=== PATIENT | male | born 1960 | race Caucasian/White ===

== ENCOUNTER 2017-03-18 14:52 | Emergency (ER) | payer BC, OTHER ==
[~2017-03-18] VITALS: Ht 172.7 cm; Wt 92.9 kg
[2017-03-18 14:56] VITALS: Ht 172.7 cm; Wt 92.9 kg
[2017-03-18] MEDS ORDERED: KETOROLAC TROMETHAMINE 30 MG/ML VIAL IV STA (15:14)
[2017-03-18] MEDS ORDERED: SODIUM CHLORIDE 0.9% 1000ML 1,000 ML IV STA (15:14)
--- NOTE | 2017-03-18 15:35 | EMERGENCY ROOM VISIT NOTE ---
History First contact with patient: 14:57 Chief Complaint: FLANK PAIN Stated Complaint: PAIN IN RIGHT SIDE History of Present Illness The patient is a 56 year old male who presents to the Emergency Room with complaints of right flank pain which began yesterday morning. The patient reports that he woke up yesterday morning with pain in the right side of his back. He states that the pain worsened last night and it became painful to lie on his right side. He states that he has increased pain with deep breath and movement. He states the symptoms are slightly better today. He denies any associated abdominal pain, urinary symptoms, chest pain or shortness of breath. The patient does report a history of kidney stones but is unsure if this pain is similar. He does report that he feels like his kidney stone caused him much more severe pain than this. He rates his current discomfort a 6/10 and has not tried any medication at home for the pain. The patient has a history of hypertension but is otherwise healthy. 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 He does smoke one pack of cigarettes daily and reports that he drove from [place] 2 weeks ago. He denies any history or family history of blood clots. He denies any recent leg pain or swelling. He does report a history of disc disease at L4 to L5. Review of Systems A complete 10 point review of systems was reviewed with the patient with pertinent positives and negatives as per history of present illness. All else were negative. Past Medical/Surgical History Medical Problems: (1) History of kidney stones (2) Hypertension Social History Smoking Status: Current Every Day Smoker Current/Historical Medications Scheduled Amlodipine (Norvasc), 5 MG PO QPM Chlorthalidone (Chlorthalidone), 50 MG PO QPM Clonidine Hcl (Catapres), 0.3 MG PO BID Lisinopril (Prinivil), 10 MG PO QPM Scheduled PRN Hydrocodone/Acetaminophen 5MG/325MG (Phillips 5MG/325MG), 1-2 TABLET PO Q4H PRN for Pain Allergies Coded Allergies: No Known Allergies (Unverified , 03/18/17) Physical Exam Vital Signs Date Time Temp Pulse Resp B/P (MAP) Pulse Ox O2 Delivery O2 Flow Rate FiO2 03/18/17 18:06 37.0 52 18 174/95 97 03/18/17 14:56 37.0 53 18 163/79 97 Room Air Physical Exam VITALS: Vitals are noted on the nurse's note and reviewed by myself. Vital signs stable. GENERAL: This is a 56-year-old male, in no acute distress, nondiaphoretic, well- developed well-nourished. SKIN: Capillary reflex less than 2 seconds. HEENT: Normocephalic. PERRLA. EOMI. Nares patent. Mucous membranes moist. Neck is supple without nuchal rigidity. HEART: Regular rate and rhythm without murmurs gallops or rubs. LUNGS: Clear to auscultation bilaterally without wheezes, rales or rhonchi. No retractions or accessory muscle use. ABDOMEN: Soft, obese. There is a moderate-sized umbilical hernia. Positive bowel sounds x 4. No tenderness to palpation. No CVA tenderness. MUSCULOSKELETAL: There is tenderness to palpation of the right mid back near the costovertebral angle. EXTREMITIES: No pedal edema. No calf tenderness. NEURO: Patient was alert and oriented to person place and time. Medical Decision & Procedures ER Provider Diagnostic Interpretation: CT SCAN OF THE ABDOMEN AND PELVIS WITHOUT CONTRAST FINDINGS: Lower chest: There is a trace right pleural effusion versus focal pleural thickening. There are bibasal atelectatic changes. Liver: The unenhanced liver is normal in size, contour, and attenuation. There is no intrahepatic biliary ductal dilatation. Gallbladder: Unremarkable. Spleen: Normal in size and attenuation. Pancreas: Unremarkable. Adrenal glands: Unremarkable. Kidneys: No renal, ureteral, or bladder calculi are visualized. There is a 12 mm upper pole left renal cyst Bowel: There are no transition zones indicate bowel obstruction. The appendix appears normal. There is pandiverticulosis. No acute peridiverticular inflammatory changes are visualized. Peritoneum: There is a fat-containing supraumbilical ventral hernia. There is a tiny fat-containing umbilical hernia. Vasculature: The abdominal aorta is normal in course and caliber. Adenopathy: Iliac lymph nodes are at the upper limits of normal in size. There is no pathologic adenopathy by size criteria. Pelvic viscera: The bladder, and pelvic viscera are unremarkable. Skeletal structures: There is a nonspecific 1 cm lytic focus within the right iliac bone. There are moderate degenerative changes the L4-5 level with a posterior disc osteophyte complex. There is secondary mild canal narrowing. IMPRESSION: 1. No renal, ureteral, or bladder calculi identified 2. No evidence of bowel obstruction. No evidence of free air 3. Diverticulosis. No evidence of acute diverticulitis 4. Normal appendix 5. Fat-containing supraumbilical ventral hernia and small fat-containing umbilical hernia 6. Other incidental findings as described above. Laboratory Results 03/18/17 15:30 Red Blood Count 4.52, Mean Corpuscular Volume 90.7, Mean Corpuscular Hemoglobin 32.3, Mean Corpuscular Hemoglobin Concent 35.6, Mean Platelet Volume 9.4, Neutrophils (%) (Auto) 68.8, Lymphocytes (%) (Auto) 22.8, Monocytes (%) (Auto) 7.0, Eosinophils (%) (Auto) 1.0, Basophils (%) (Auto) 0.2, Neutrophils # (Auto) 4.23, Lymphocytes # (Auto) 1.40, Monocytes # (Auto) 0.43, Eosinophils # (Auto) 0.06, Basophils # (Auto) 0.01 03/18/17 15:30 Test 03/18/17 15:30 03/18/17 15:34 03/18/17 17:20 White Blood Count 6.14 K/uL (4.8-10.8) Red Blood Count 4.52 M/uL (4.7-6.1) Hemoglobin 14.6 g/dL (14.0-18.0) Hematocrit 41.0 % (42-52) Mean Corpuscular Volume 90.7 fL (80-100) Mean Corpuscular Hemoglobin 32.3 pg (25-34) Mean Corpuscular Hemoglobin Concent 35.6 g/dl (32-36) Platelet Count 204 K/uL (130-400) Mean Platelet Volume 9.4 fL (7.4-10.4) Neutrophils (%) (Auto) 68.8 % Lymphocytes (%) (Auto) 22.8 % Monocytes (%) (Auto) 7.0 % Eosinophils (%) (Auto) 1.0 % Basophils (%) (Auto) 0.2 % Neutrophils # (Auto) 4.23 K/uL (1.4-6.5) Lymphocytes # (Auto) 1.40 K/uL (1.2-3.4) Monocytes # (Auto) 0.43 K/uL (0.11-0.59) Eosinophils # (Auto) 0.06 K/uL (0-0.5) Basophils # (Auto) 0.01 K/uL (0-0.2) RDW Standard Deviation 45.1 fL (36.4-46.3) RDW Coefficient of Variation 13.6 % (11.5-14.5) Immature Granulocyte % (Auto) 0.2 % Immature Granulocyte # (Auto) 0.01 K/uL (0.00-0.02) Anion Gap 7.0 mmol/L (3-11) Est Creatinine Clear Calc Drug Dose 94.2 ml/min Estimated GFR () 100.2 Estimated GFR (Non- 86.4 BUN/Creatinine Ratio 14.5 (10-20) Calcium Level 8.9 mg/dl (8.5-10.1) Total Bilirubin 0.5 mg/dl (0.2-1) Aspartate Amino Transf (AST/SGOT) U/L (15-37) Alanine Aminotransferase (ALT/SGPT) 31 U/L (12-78) Alkaline Phosphatase 74 U/L (45-117) Total Protein 7.7 gm/dl (6.4-8.2) Albumin 3.6 gm/dl (3.4-5.0) Globulin 4.1 gm/dl (2.5-4.0) Albumin/Globulin Ratio 0.9 (0.9-2) Lipase 175 U/L (73-393) Bedside D-Dimer 413 ng/mlFEU (0-450) Urine Color DK YELLOW Urine Appearance CLEAR (CLEAR) Urine pH 7.0 (4.5-7.5) Urine Specific Biggers 1.029 (1.000-1.030) Urine Protein TRACE (NEG) Urine Glucose (UA) NEG (NEG) Urine Ketones TRACE (NEG) Urine Occult Blood NEG (NEG) Urine Nitrite NEG (NEG) Urine Bilirubin NEG (NEG) Urine Urobilinogen NEG (NEG) Urine Leukocyte Esterase NEG (NEG) Urine WBC (Auto) 1-5 /hpf (0-5) Urine RBC (Auto) 0-4 /hpf (0-4) Urine Hyaline Casts (Auto) 1-5 /lpf (0-5) Urine Epithelial Cells (Auto) 10-20 /lpf (0-5) Urine Bacteria (Auto) NEG (NEG) Medications Administered Medications (Trade) Dose Ordered Sig/Kaiden Route Start Time Stop Time Status Last Admin Dose Admin Ketorolac Tromethamine (Toradol Inj) 30 mg NOW STAT IV 03/18/17 15:14 03/18/17 15:16 DC 03/18/17 15:32 30 MG Sodium Chloride 1,000 ml @ 999 mls/hr Q1H1M STAT IV 03/18/17 15:14 03/18/17 16:14 DC 03/18/17 15:32 999 MLS/HR ED Course The patient was evaluated as above. Labs were drawn and IV access was obtained. Patient was medicated with [address] of the abdomen and pelvis was performed and read by radiology as above. Patient was reevaluated and felt much better. Discharge instructions were reviewed with the patient. The patient verbalized understanding of my assessment and treatment plan and was discharged home in good condition. Medical Decision Differential diagnosis includes kidney stone, pyelonephritis, musculoskeletal pain, gastritis, biliary disease, pancreatitis, among others. The patient is a 56-year-old male who presents today complaining of right flank pain. Labs revealed no leukocytosis, anemia, or concerning electrolyte abnormality. Urinalysis was not suggestive of infection. D-dimer was negative. CT of the abdomen was unremarkable. No evidence of kidney stone. The patient was medicated for pain. His back pain is likely musculoskeletal. He was instructed to follow up with his PCP. Based on the patient's presentation and work up, I feel the patient is stable for outpatient treatment. The patient was educated to return to the emergency department for any worsening of their current condition or new/concerning symptoms. He will follow up with his PCP. Impression Primary Impression: Right flank pain Departure Information Dispostion Home / Self-Care Condition GOOD Prescriptions Hydrocodone/Acetaminophen 5MG/325MG (Phillips 5MG/325MG) Tab 1-2 TABLET PO Q4H Y for Pain, #15 TAB For Initial Treatment Prov: Davida Aldana PA-C 03/18/17 Referrals Gregorio Gonzalez M.D. (PCP) Patient Instructions My [facility] Additional Instructions You have been treated in the Emergency Department for Back Pain. You have been prescribed Phillips to be used for pain control. This is a narcotic medication. You cannot drive or consume alcohol while on this medicine. This medicine should only be used for pain that cannot be controlled with over-the- counter pain medicines. For pain control, you can use the following [id number] medicines (if >12 yo): - Regular strength (325mg/tab) Tylenol (acetaminophen) 2 tabs every 4-6 hours as needed. Do not exceed 12 tablets in a 24 hour period. Avoid taking more than 4 grams (4000 mg) of Tylenol per day. This includes any other sources of acetaminophen you may take on a regular basis. - Regular strength (200 mg/tab) Advil (ibuprofen) 1-2 tabs every 4-6 hours as needed. Do not exceed a dose of 3200 mg per day. If this is an acute injury, ice can be applied to the area of pain for the first 3 days to help decrease pain and inflammation. After the first 3 days, a heating pad can be used over the area for continued soothing relief. You should schedule a follow-up appointment in 2-3 days with your Primary Care Provider for further evaluation and treatment of your back pain. Return to the Emergency Department if your current symptoms worsen despite treatment course outlined above, or if you develop any of the following symptoms : intractable pain despite aforementioned treatment course, loss of control of your bowel or bladder, numbness or tingling in your groin, or development of a fever.
[2017-03-18 15:43] LABS: BASO % 0.2 %; BASO ABS # 0.01 K/uL (0-0.2); COMPLETE YES; IG% 0.2 %; LYMPH % 22.8 %; MEAN CELL VOLUME 90.7 fL (80-100); MEAN CORPUSCULAR HEMOGLOBIN 32.3 pg (25-34); MEAN CORPUSCULAR HGB CONC 35.6 g/dl (32-36); MEAN PLATELET VOLUME 9.4 fL (7.4-10.4); NEUT % 68.8 %; PLATELET COUNT 204 K/uL (130-400); RED BLOOD COUNT 4.52 M/uL (4.7-6.1); WHITE BLOOD COUNT 6.14 K/uL (4.8-10.8)
[2017-03-18] MEDS ORDERED: CHLO50TA PO (15:54)
[2017-03-18] MEDS ORDERED: LISI20TA3 PO (15:54)
[2017-03-18] MEDS ORDERED: AMLO-110 PO (15:54)
[2017-03-18] MEDS ORDERED: CLON0.3T PO (15:54)
[2017-03-18 16:36] LABS: ALB/GLOB RATIO 0.9 (0.9-2); ALKALINE PHOSPHATASE 74 U/L (45-117); ALT/SGPT 31 U/L (12-78); BLOOD UREA NITROGEN 14 mg/dl (7-18); BUN/CREATININE RATIO 14.5 (10-20); CALCIUM 8.9 mg/dl (8.5-10.1); CARBON DIOXIDE 33 mmol/L (21-32); CHLORIDE 102 mmol/L (98-107); CREATININE 0.98 mg/dl (0.60-1.40); GLUCOSE 91 mg/dl (70-99); SODIUM 142 mmol/L (136-145)
--- NOTE | 2017-03-18 16:38 | DIAGNOSTIC IMAGING REPORT ---
CT SCAN OF THE ABDOMEN AND PELVIS WITHOUT CONTRAST CLINICAL HISTORY: Right flank pain COMPARISON STUDY: No previous studies for comparison. TECHNIQUE: CT scan of the abdomen and pelvis was performed from the lung bases to the proximal femurs. Images are reviewed in the axial, sagittal, and coronal planes. IV contrast was not administered for this examination. CT DOSE: 1177.17 mGy.cm FINDINGS: Lower chest: There is a trace right pleural effusion versus focal pleural thickening. There are bibasal atelectatic changes. Liver: The unenhanced liver is normal in size, contour, and attenuation. There is no intrahepatic biliary ductal dilatation. Gallbladder: Unremarkable. Spleen: Normal in size and attenuation. Pancreas: Unremarkable. Adrenal glands: Unremarkable. Kidneys: No renal, ureteral, or bladder calculi are visualized. There is a 12 mm upper pole left renal cyst Bowel: There are no transition zones indicate bowel obstruction. The appendix appears normal. There is pandiverticulosis. No acute peridiverticular inflammatory changes are visualized. Peritoneum: There is a fat-containing supraumbilical ventral hernia. There is a tiny fat-containing umbilical hernia. Vasculature: The abdominal aorta is normal in course and caliber. Adenopathy: Iliac lymph nodes are at the upper limits of normal in size. There is no pathologic adenopathy by size criteria. Pelvic viscera: The bladder, and pelvic viscera are unremarkable. Skeletal structures: There is a nonspecific 1 cm lytic focus within the right iliac bone. There are moderate degenerative changes the L4-5 level with a posterior disc osteophyte complex. There is secondary mild canal narrowing. IMPRESSION: 1. No renal, ureteral, or bladder calculi identified 2. No evidence of bowel obstruction. No evidence of free air 3. Diverticulosis. No evidence of acute diverticulitis 4. Normal appendix 5. Fat-containing supraumbilical ventral hernia and small fat-containing umbilical hernia 6. Other incidental findings as described above. Electronically signed by: Skyler Mendenhall M.D. 03/18/2017 4:37 PM Dictated Date/Time: 03/18/2017 4:30 PM
[2017-03-18 17:36] LABS: URINE APPEARANCE CLEAR (CLEAR); URINE BILIRUBIN NEG (NEG); URINE COLOR DK YELLOW; URINE NITRITE NEG (NEG); URINE SPECIFIC GRAVITY 1.029 (1.000-1.030); UROBILINOGEN NEG (NEG); ZZUR CULT IF INDIC CLEAN CATCH NO
[2017-03-18] MEDS ORDERED: HYDR-5688 PO (17:41)
[2017-03-18 17:46] LABS: MANUAL MICROSCOPIC REQUIRED? NO; REVIEW REQ? NO
[2017-03-18 18:06] VITALS: BP 174/95; PULSE 52; TEMP 37; O2SAT 97
== END 2017-03-18 18:07 | disposition home or self-care (01) ==
LOC: C.EDB 14:53
DX: R10.9 Unspecified abdominal pain (principal); I10 Essential (primary) hypertension; F17.210 Nicotine dependence, cigarettes, uncomplicated; K42.9 Umbilical hernia without obstruction or gangrene; Z87.442 Personal history of urinary calculi

== ENCOUNTER 2017-12-01 15:39 | Inpatient (IN) | payer BC ==
[~2017-12-01] VITALS: Ht 172.7 cm; Wt 90.1 kg
[~2017-12-01 15:39] MED LIST: AMLO-110 PO; CHLO50TA PO; CLON0.3T PO; LISI20TA3 PO
[2017-12-01] MEDS ORDERED: NITROGLYCERIN 0.4 MG SL PER TAB CHARGE SL STA (16:06)
[2017-12-01] MEDS ORDERED: ASPIRIN 324 MG CHEW PO STA (16:06)
[2017-12-01 16:39] LABS: BASO % 0.2 %; BASO ABS # 0.02 K/uL (0-0.2); EOS % 0.6 %; EOS ABS # 0.06 K/uL (0-0.5); HEMATOCRIT 40.8 % (42-52); HEMOGLOBIN 14.7 g/dL (14.0-18.0); IG# 0.02 K/uL (0.00-0.02); LYMPH % 14.5 %; LYMPH ABS # 1.37 K/uL (1.2-3.4); MEAN CELL VOLUME 88.1 fL (80-100); MEAN CORPUSCULAR HEMOGLOBIN 31.7 pg (25-34); MEAN PLATELET VOLUME 9.6 fL (7.4-10.4); MONO % 7.5 %; MONO ABS # 0.71 K/uL (0.11-0.59); NEUT ABS # 7.24 K/uL (1.4-6.5); PLATELET COUNT 179 K/uL (130-400); RED CELL DISTRIBUTION WIDTH CV 13.5 % (11.5-14.5); RED CELL DISTRIBUTION WIDTH SD 43.3 fL (36.4-46.3); WHITE BLOOD COUNT 9.42 K/uL (4.8-10.8)
--- NOTE | 2017-12-01 16:41 | DIAGNOSTIC IMAGING REPORT ---
CHEST ONE VIEW PORTABLE HISTORY: 56 years-old Male cp acute atypical chest pain with high blood pressure COMPARISON: Chest radiographs 09/03/2009 TECHNIQUE: Portable AP view of the chest FINDINGS: Cardiac silhouette is mildly enlarged. No pneumothorax, pleural effusion, focal airspace consolidation or overt pulmonary edema. The bones of the chest appear grossly intact. IMPRESSION: Mild cardiomegaly without acute process. The above report was generated using voice recognition software. It may contain grammatical, syntax or spelling errors. Electronically signed by: Gabriel Linares M.D. 12/01/2017 4:40 PM Dictated Date/Time: 12/01/2017 4:39 PM
[2017-12-01 16:47] LABS: PTT PATIENT 28.2 SECONDS (21.0-31.0)
[2017-12-01] MEDS ORDERED: POTA10TA PO (16:47)
[2017-12-01 16:57] LABS: CALCIUM 9.1 mg/dl (8.5-10.1); CREATININE 0.99 mg/dl (0.60-1.40); POTASSIUM 2.9 mmol/L (3.5-5.1)
[2017-12-01] MEDS ORDERED: POTASSIUM CHLORIDE 10 MEQ TABCR PO STA (17:07)
--- NOTE | 2017-12-01 18:17 | EMERGENCY ROOM VISIT NOTE ---
History Report prepared by Biancaibwendy: Chris Goldman Under the Supervision of: Dr. Jean Claude Sal M.D. First contact with patient: 16:00 Chief Complaint: CHEST PAIN Stated Complaint: CHEST PAIN, HIGH BP- PHYSICIAN REFERRED History of Present Illness The patient is a 56 year old male who presents to the Emergency Room with complaints of constant bilateral chest pain beginning yesterday morning. He describes his pain as "pressure". He also complains of SOB. The patient's pain improved upon waking up today, but has worsened throughout the day today. He rates his current pain as a 6/10 in severity. His pain is worsened with walking. The patient notes that he had a fever of 99 degrees today. He states that he has had a non-productive cough as well. He smokes one pack of cigarettes a day. The patient has no history of similar symptoms. He has a history of hypertension and states that he has been taking his medications as normal. He denies nausea, diaphoresis, leg pain or swelling, or lightheadedness. The patient denies using Viagra recently, but states that he has been taking a testosterone supplement. Source of History: patient Onset: Yesterday morning Position: chest (bilateral) Symptom Intensity: 6/10 Quality: pressure Timing: constant Modifying Factors (Worsening): other (Walking) Associated Symptoms: + fevers (99 degrees), + cough (non-productive), + SOB , No diaphoresis, No nausea Note: The patient denies leg swelling or pain, or lightheadedness. Review of Systems See HPI for pertinent positives & negatives. A total of 10 systems reviewed and were otherwise negative. Past Medical & Surgical Medical Problems: (1) History of kidney stones (2) Hypertension Family History No pertinent family history stated. Social History Smoking Status: Current Every Day Smoker Occupation Status: employed Current/Historical Medications Scheduled Amlodipine (Norvasc), 5 MG PO QPM Clonidine Hcl (Catapres), 0.3 MG PO BID Lisinopril (Prinivil), 20 MG PO QPM Potassium Chloride (K-Tabs), 10 MEQ PO BID Allergies Coded Allergies: No Known Allergies (Unverified , 12/01/17) Physical Exam Vital Signs Date Time Temp Pulse Resp B/P (MAP) Pulse Ox O2 Delivery O2 Flow Rate FiO2 12/01/17 17:19 60 18 149/80 96 Room Air 12/01/17 16:37 96 Room Air 12/01/17 16:35 58 12/01/17 16:11 96 Room Air 12/01/17 15:47 37.1 63 18 199/98 97 Room Air Physical Exam Constitutional: Vital signs reviewed. Severely hypertensive. Eyes: Pupils are equal round reactive to light. Conjunctiva are noninjected. ENT: Pharynx is clear without erythema or exudate. Mucous membranes are moist. Neck supple without meningeal signs. Respiratory: Clear to auscultation bilaterally. Breath sounds are equal bilaterally. Cardiovascular: Regular rate and rhythm. No rubs or gallops. GI: Soft, nondistended and nontender. Bowel sounds are present. Musculoskeletal: No peripheral edema. No lower extremity tenderness. Integumentary: No cyanosis. Neurological: The patient is awake and alert. No focal deficits. Psychiatric: Normal affect. Medical Decision & Procedures ER Provider Diagnostic Interpretation: Radiology results as stated below per my review and the radiologist's interpretation: CHEST ONE VIEW PORTABLE FINDINGS: Cardiac silhouette is mildly enlarged. No pneumothorax, pleural effusion, focal airspace consolidation or overt pulmonary edema. The bones of the chest appear grossly intact. IMPRESSION: Mild cardiomegaly without acute process. The above report was generated using voice recognition software. It may contain grammatical, syntax or spelling errors. Electronically signed by: Gabriel Linares M.D. 12/01/2017 4:40 PM Laboratory Results 12/01/17 16:30 Red Blood Count 4.63, Mean Corpuscular Volume 88.1, Mean Corpuscular Hemoglobin 31.7, Mean Corpuscular Hemoglobin Concent 36.0, Mean Platelet Volume 9.6, Neutrophils (%) (Auto) 77.0, Lymphocytes (%) (Auto) 14.5, Monocytes (%) (Auto) 7.5, Eosinophils (%) (Auto) 0.6, Basophils (%) (Auto) 0.2, Neutrophils # (Auto) 7.24, Lymphocytes # (Auto) 1.37, Monocytes # (Auto) 0.71, Eosinophils # (Auto) 0.06, Basophils # (Auto) 0.02 12/01/17 16:30 Test 12/01/17 16:30 12/01/17 16:37 White Blood Count 9.42 K/uL (4.8-10.8) Red Blood Count 4.63 M/uL (4.7-6.1) Hemoglobin 14.7 g/dL (14.0-18.0) Hematocrit 40.8 % (42-52) Mean Corpuscular Volume 88.1 fL (80-100) Mean Corpuscular Hemoglobin 31.7 pg (25-34) Mean Corpuscular Hemoglobin Concent 36.0 g/dl (32-36) Platelet Count 179 K/uL (130-400) Mean Platelet Volume 9.6 fL (7.4-10.4) Neutrophils (%) (Auto) 77.0 % Lymphocytes (%) (Auto) 14.5 % Monocytes (%) (Auto) 7.5 % Eosinophils (%) (Auto) 0.6 % Basophils (%) (Auto) 0.2 % Neutrophils # (Auto) 7.24 K/uL (1.4-6.5) Lymphocytes # (Auto) 1.37 K/uL (1.2-3.4) Monocytes # (Auto) 0.71 K/uL (0.11-0.59) Eosinophils # (Auto) 0.06 K/uL (0-0.5) Basophils # (Auto) 0.02 K/uL (0-0.2) RDW Standard Deviation 43.3 fL (36.4-46.3) RDW Coefficient of Variation 13.5 % (11.5-14.5) Immature Granulocyte % (Auto) 0.2 % Immature Granulocyte # (Auto) 0.02 K/uL (0.00-0.02) Prothrombin Time 10.4 SECONDS (9.0-12.0) Prothromb Time International Ratio 1.0 (0.9-1.1) Activated Partial Thromboplast Time 28.2 SECONDS (21.0-31.0) Partial Thromboplastin Ratio 1.1 Anion Gap 8.0 mmol/L (3-11) Est Creatinine Clear Calc Drug Dose 92.4 ml/min Estimated GFR () 99.0 Estimated GFR (Non- 85.4 BUN/Creatinine Ratio 13.4 (10-20) Calcium Level 9.1 mg/dl (8.5-10.1) Bedside Troponin I < 0.030 ng/ml (0-0.045) Laboratory results as reviewed by me. Medications Administered Medications (Trade) Dose Ordered Sig/Kaiden Route Start Time Stop Time Status Last Admin Dose Admin Aspirin (Aspirin Chew) 324 mg NOW STAT PO 12/01/17 16:06 12/01/17 16:08 DC 12/01/17 16:06 324 MG Nitroglycerin (Nitrostat Tab) 0.4 mg Q5M STAT SL 12/01/17 16:06 12/01/17 16:08 DC 12/01/17 16:06 0.4 MG Potassium Chloride (Klor-Con M10) 40 meq NOW STAT PO 12/01/17 17:07 12/01/17 17:09 DC 12/01/17 17:23 40 MEQ ECG Indication: chest pain Rate (beats per minute): 62 Rhythm: normal sinus Findings: no ectopy, other (LVH. No ST elevations. Baseline artifact limiting interpretation. ) Change: Patient's electrocardiogram per my interpretation. Repeat ECG shows a sinus bradycardia with a rate of [address] elevations or ectopy seen. LVH noted. ED Course 1601: The patient was evaluated in room A2. A complete history and physical exam was performed. 1606: Ordered Nitrostat Tab 0.4 mg SL, Aspirin Chew 324 mg PO. 1625: I checked on the patient. He has received his nitroglycerin, but has not seen any relief at this time. 1642: I reassessed the patient. His pain has improved, and he is breathing more comfortably after receiving the nitroglycerin. 1705: Upon reevaluation, the patient is feeling better. His chest pain is much better. I discussed tonight's findings with him. He verbalized agreement of the treatment plan. The patient will be evaluated for further evaluation. 1707: Ordered Klor-Con M10 40 meq PO. 1724: I reexamined the patient. He is no longer having pain or shortness of breath after receiving his third nitroglycerin. His blood pressure is 149 systolic. Medical Decision This is a 56-year-old male who presents with chest pain. Differential diagnosis includes unstable angina, IL, pneumonia, pleurisy, pneumothorax, GERD. I did perform a limited focused review of portions of the patient's old chart on the electronic medical record. The patient has had no recent pertinent visits to this hospital. I did evaluate the patient as noted above. The patient is presenting with chest pressure starting yesterday which is worse with exertion. He has some associated shortness of breath with it. He does not have any known risk factors for pulmonary embolism. IV access was established. The patient was placed on a continuous biomedical photographer. I did treat him with aspirin and 3 sublingual nitroglycerin. I did order and personally review the patient's 12- lead EKG and chest x-ray as described above. His 12-lead EKG is nonspecific. I did repeat a 12-lead EKG and per my interpretation this does not show any acute ST elevations. He does have some hypertrophy. I did order and review the patient's blood work as noted in the electronic medical record. Troponin is negative. His potassium is low. He was given oral supplementation. He does state he has a problem with low potassium. I did reassess the patient multiple times. His chest pain is resolved and his blood pressure is significantly improved. I did recommend hospitalization for further evaluation and cardiac stress testing. I did discuss the case with the hospitalist and medical case worker. Medication Reconcilliation Current Medication List: was personally reviewed by me Blood Pressure Screening Patient's blood pressure: Elevated blood pressure Blood pressure disposition: Referred to PCP Consults Time Called: 1704 Consulting Physician: Dr. Li - [facility] Hospitalist Returned Call: [address] Li of [facility]. We discussed the patient and his results. The patient will be further evaluated by [facility]. Impression Primary Impression: Exertional chest pain Additional Impressions: Hypokalemia Hypertensive urgency Scribe Attestation The scribe's documentation has been prepared under my direct and personally reviewed by me in its entirety. I confirm that the note above accurately reflects all work, treatment, procedures, and medical decision making performed by me. Departure Information Dispostion Being Evaluated By Hospitalist Referrals Gregorio Gonzalez M.D. (PCP) Patient Instructions My [facility] Problem Qualifiers
[2017-12-01] MEDS ORDERED: ONDANSETRON INJ 2 MG/ML 2 ML VIAL IV PRN (20:00)
[2017-12-01] MEDS ORDERED: NITROGLYCERIN 0.4 MG SL PER TAB CHARGE SL ONE (20:00)
[2017-12-01] MEDS ORDERED: MAGNESIUM HYDROXIDE SUSP 30 ML UDC PO PRN (20:00)
[2017-12-01] MEDS ORDERED: POLYETHYLENE (MIRALAX) 17 GM PACK PO PRN (20:00)
[2017-12-01] MEDS ORDERED: ALUMINUM/MAGNESIUM/SIMETH (MAALOX MAX) 30 ML UDC PO PRN (20:00)
--- NOTE | 2017-12-01 20:35 | History and Physical ---
History & Physical Date & Time of Service: Dec 01, 2017 at 20:13 Chief Complaint: Chest Pain, High Bp- Physician Referred Primary Care Physician: Gregorio Gonzalez M.D. History of Present Illness Source: patient, hospital records This is a 56 y/o male with a history of HTN and hypokalemia who presented to the ED on 12/01 with chest pain. The patient first developed pressure across his chest yesterday morning. He rates it a 6/10 at its worst. The pain is accompanied by shortness of breath. He states that the pain and SOB are exacerbated by exertion. The pain did start to radiate through to his back. He denies any other associated symptoms. The pain started to get better this morning, but at work began to get worse again. In the ED, the patient states his pain was relieved by nitro, which he received several hours prior to my exam , but is now returning. The patient is a smoker and has a history of HTN but denies any history of HLD or previous cardiac events. He denies any family history of [place]. The patient checks his blood pressure on occasion at home. He had actually checked it this afternoon [employer] and it was around 156/72 at that time. He has been taking his blood pressure medications as prescribed. The patient notes tingling in his hands which has been present for months since he was diagnosed with hypokalemia. This is stable and no worse than usual. The patient denies fevers, chills, sweats, palpitations, claudication, cough, wheezing, nausea, vomiting, abdominal pain, dysuria, hematuria, urinary retention, paralysis, weakness, acute numbness and tingling. 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 No cough, No wheezing Cardiovascular: +Chest pain, worse on exertion. No claudication, No palpitations Abdomen: No pain, No nausea, No vomiting Musculoskeletal: No joint pain, No muscle pain, No swelling Genitourinary - Male: No dysuria, No urinary retention, No hematuria Neurologic: No paralysis, No weakness, No numbness/tingling Integumentary: No rash, No itch, No color change Physical Exam Vital Signs Date Time Temp Pulse Resp B/P (MAP) Pulse Ox O2 Delivery O2 Flow Rate FiO2 12/01/17 18:43 57 18 157/92 95 Room Air 12/01/17 17:19 60 18 149/80 96 Room Air 12/01/17 16:37 96 Room Air 12/01/17 16:35 58 12/01/17 16:11 96 Room Air 12/01/17 15:47 37.1 63 18 199/98 97 Room Air General appearance: +Obese. Well-developed, well-nourished, no apparent distress Head: Normocephalic, atraumatic Eyes: Normal inspection, PERRL, EOMI ENT: Normal ENT inspection, hearing grossly normal, pharynx normal Neck: Supple, no JVD, trachea midline Respiratory/Chest: Lungs clear to auscultation, normal breath sounds, no respiratory distress Cardiovascular: Regular rate & rhythm, no gallop, no murmur Abdomen/GI: +Ventral hernia above umbilicus, mildly TTP. Normal bowel sounds, soft Extremities/Musculoskeletal: Normal inspection, no calf tenderness, no pedal edema Neurological/Psych: Alert, normal mood/affect, oriented x 3 Skin: Normal color, warm/dry, no rash Diagnostics Laboratory Results Results Past 24 Hours Test 12/01/17 16:30 12/01/17 16:37 Range/Units White Blood Count 9.42 4.8-10.8 K/uL Red Blood Count 4.63 4.7-6.1 M/uL Hemoglobin 14.7 14.0-18.0 g/dL Hematocrit 40.8 42-52 % Mean Corpuscular Volume 88.1 80-100 fL Mean Corpuscular Hemoglobin 31.7 25-34 pg Mean Corpuscular Hemoglobin Concent 36.0 32-36 g/dl Platelet Count 179 130-400 K/uL Mean Platelet Volume 9.6 7.4-10.4 fL Neutrophils (%) (Auto) 77.0 % Lymphocytes (%) (Auto) 14.5 % Monocytes (%) (Auto) 7.5 % Eosinophils (%) (Auto) 0.6 % Basophils (%) (Auto) 0.2 % Neutrophils # (Auto) 7.24 1.4-6.5 K/uL Lymphocytes # (Auto) 1.37 1.2-3.4 K/uL Monocytes # (Auto) 0.71 0.11-0.59 K/uL Eosinophils # (Auto) 0.06 0-0.5 K/uL Basophils # (Auto) 0.02 0-0.2 K/uL RDW Standard Deviation 43.3 36.4-46.3 fL RDW Coefficient of Variation 13.5 11.5-14.5 % Immature Granulocyte % (Auto) 0.2 % Immature Granulocyte # (Auto) 0.02 0.00-0.02 K/uL Prothrombin Time 10.4 9.0-12.0 SECONDS Prothromb Time International Ratio 1.0 0.9-1.1 Activated Partial Thromboplast Time 28.2 21.0-31.0 SECONDS Partial Thromboplastin Ratio 1.1 Sodium Level 136 136-145 mmol/L Potassium Level 2.9 3.5-5.1 mmol/L Chloride Level 101 98-107 mmol/L Carbon Dioxide Level 27 21-32 mmol/L Anion Gap 8.0 3-11 mmol/L Blood Urea Nitrogen 13 7-18 mg/dl Creatinine 0.99 0.60-1.40 mg/dl Est Creatinine Clear Calc Drug Dose 92.4 ml/min Estimated GFR () 99.0 Estimated GFR (Non- 85.4 BUN/Creatinine Ratio 13.4 10-20 Random Glucose 98 70-99 mg/dl Calcium Level 9.1 8.5-10.1 mg/dl Bedside Troponin I < 0.030 0-0.045 ng/ml Diagnostic Radiology Reviewed the following studies and agree with interpretation as follows: CHEST ONE VIEW PORTABLE HISTORY: 56 years-old Male cp acute atypical chest pain with high blood pressure COMPARISON: Chest radiographs 09/03/2009 TECHNIQUE: Portable AP view of the chest FINDINGS: Cardiac silhouette is mildly enlarged. No pneumothorax, pleural effusion, focal airspace consolidation or overt pulmonary edema. The bones of the chest appear grossly intact. IMPRESSION: Mild cardiomegaly without acute process. EKG Reviewed EKG and agree with interpretation as follows: 62 bpm, NSR, LVH Impression Assessment and Plan 56 y/o male with a history of HTN and hypokalemia who presented to the ED on with chest pain. BP elevated on arrival at 199/98. Pt did not receive any antihypertensives in ED, just 1 SL nitro. BP did come down to 149/80. Vital signs otherwise stable. CXR no acute disease. EKG no ischemic changes. Troponin negative. Potassium low at 2.9, given KCl 40 mEq PO in ED. Chest pain, ACS r/o -Admit to telemetry for observation -Trend cardiac enzymes q8h x 3. First trop negative -Stress echo in am if negative -NPO after midnight except meds -ASA 81 mg PO qam -Check fasting lipid profile and hgbA1c. Denies any h/o HLD or DM -EKG q am and prn chest pain -Nitro SL prn chest pain -D-dimer elevated, will check chest CTA to r/o PE HTN--now stable. Most of his medications are at night and he has not yet taken for today -Continue Norvasc 5 mg PO hs, Catapres 0.3 mg PO BID, and lisinopril 20 mg PO hs Hypokalemia -Potassium 2.9 on admission. No EKG changes. Given 40 mEq in ED -Continue KCl 10 mEq PO BID -Check magnesium, replace prn -Consider ruling out hyperaldosteronism as outpatient given hypokalemia in setting of HTN DVT prophylaxis -Enoxaparin 40 mg SC q24h -WEN Banerjee Code Status -Level I, FULL RESUSCITATION STATUS I personally interviewed and examined the patient. I agree with history of present illness and physical exam mentioned above, I also performed my own history taking and examination. Past medical history and review of system has been obtained by myself I reviewed all pertinent labs and studies Reviewed current medications I discussed and formulated of the assessment and plan mentioned above by Miss Maria. Please refer to the Summary mentioned below. 56/m presented w chest pain (pleuritic), hypokalemia and HTN urgency. D dimer was mildly elevated and CTA was ordered. potassium replaced cardiology consult placed General Appearance: not in acute distress Eyes: normal Sclerae, extraocular muscle intact ENT: hearing grossly normal Neck: supple Respiratory/Chest: normal air entry bilateral ,no respiratory distress, no accessory muscle use Cardiovascular: regular rate, rhythm, no murmur Abdomen: non tender, soft, no masses Extremities: no edema Neurologic/Psychiatric: Awake alert oriented times place and person moves all extremities sensation intact cranial nerves II-12 appear to be intact Skin: normal color, warm/dry, no rash Andra Hsu MD, [facility] Level of Care Telemetry Resuscitation Status FULL RESUSCITATION VTE Prophylaxis VTE Risk Assessment Done? Y/N: Yes Risk Level: Moderate Given or contraindicated: Enoxaparin (Lovenox)SQ, T.E.D. Stockings, SCD's
[2017-12-01] MEDS ORDERED: IV FLUIDS COMPLETED PRN (20:45)
[2017-12-01] MEDS ORDERED: POTASSIUM CHLORIDE 10 MEQ TABCR PO SCH (21:00)
[2017-12-01] MEDS ORDERED: OPTIRAY 320 IV PRN (21:00)
--- NOTE | 2017-12-01 21:11 | DIAGNOSTIC IMAGING REPORT ---
(CHEST FOR PE) ANGIO WITH CLINICAL HISTORY: 56 years-old Male presenting with ^atypical chest pain , r/o pe. TECHNIQUE: Multidetector CT angiography of the chest was performed after administration of intravenous contrast. 3-D volumetric and/or maximum intensity projection (MIP) images were subsequently reconstructed for review. IV contrast: 104 mL of Optiray 320. A dose lowering technique was used consistent with the principles of ALARA (as low as reasonably achievable). COMPARISON: Chest x-ray performed earlier the same day. CT DOSE (mGy.cm): The estimated cumulative dose is 582.05 mGy.cm. FINDINGS: [employer] topogram: Cardiomegaly. Pulmonary vasculature: The study is adequate for assessment of the pulmonary vascular tree. No filling defect within the pulmonary arteries to suggest embolus. Main pulmonary artery is not enlarged. No flattening of the interventricular septum. No intracardiac filling defect. No reflux of contrast into the hepatic veins. Remaining chest: On soft tissue windows, normal thyroid and thoracic inlet. No axillary, supraclavicular, hilar, or mediastinal lymphadenopathy. Normal aorta. Multichamber enlargement of the heart. Coronary artery calcification. No pericardial or pleural effusion. Upper abdomen normal. On lung windows, minimal dependent changes likely atelectasis. No other focal nodule or infiltrate. Layering debris in the right mainstem bronchus. Bronchial wall thickening in the right lower lobe. On bone windows, degenerative changes of the spine. IMPRESSION: 1. No evidence of pulmonary embolus. 2. Layering debris in the right mainstem bronchus with bronchial wall thickening in the right lower lobe suggests aspiration. No evidence of pneumonitis at this time. Electronically signed by: Fahad Luciano M.D. 12/01/2017 9:10 PM Dictated Date/Time: 12/01/2017 9:03 PM
[2017-12-01] MEDS ORDERED: SODIUM CHLORIDE 0.9% 1000ML 1,000 ML IV SCH (21:30)
[2017-12-01] MEDS: ACETAMINOPHEN 325 MG TAB PO PRN (21:59)
[2017-12-01] MEDS: AMLODIPINE BESYLATE 5 MG TAB PO SCH (22:00)
[2017-12-01] MEDS: LISINOPRIL 20 MG TAB PO SCH (22:00)
[2017-12-01] MEDS: CLONIDINE HCL 0.3 MG TAB PO SCH (22:01)
[2017-12-01] MEDS: ENOXAPARIN 40 MG/0.4 ML SYR SC SCH (22:01)
[2017-12-01 22:25] VITALS: BP 195/105; PULSE 68; TEMP 37.1; O2SAT 97; Ht 172.7 cm; Wt 90.1 kg
[2017-12-01 22:44] VITALS: BP 144/74; PULSE 60
[2017-12-01] MEDS ORDERED: NURSING VERBAL MED ORDER ONE (23:00)
[2017-12-02] VITALS (13 sets, daily range): BP systolic 119–192; BP diastolic 70–100; PULSE 51–71; TEMP 36.4–37.5; O2SAT 94–99
[2017-12-02 00:50] LABS: CKMB < 0.5 ng/ml (0.5-3.6)
[2017-12-02] MEDS: NITROGLYCERIN 0.4 MG SL PER TAB CHARGE SL PRN ×2 (04:02→14:22)
[2017-12-02] MEDS: ACETAMINOPHEN 325 MG TAB PO PRN (05:14)
[2017-12-02 08:51] LABS: HEMATOCRIT 42.1 % (42-52); HEMOGLOBIN 15.1 g/dL (14.0-18.0); MEAN CELL VOLUME 89.4 fL (80-100); MEAN CORPUSCULAR HEMOGLOBIN 32.1 pg (25-34); MEAN CORPUSCULAR HGB CONC 35.9 g/dl (32-36); MEAN PLATELET VOLUME 9.8 fL (7.4-10.4); PLATELET COUNT 171 K/uL (130-400); RED CELL DISTRIBUTION WIDTH CV 13.4 % (11.5-14.5); RED CELL DISTRIBUTION WIDTH SD 44.1 fL (36.4-46.3); WHITE BLOOD COUNT 10.02 K/uL (4.8-10.8)
[2017-12-02 09:20] LABS: CALCIUM 9.2 mg/dl (8.5-10.1); CREATININE 0.95 mg/dl (0.60-1.40); POTASSIUM 3.1 mmol/L (3.5-5.1)
[2017-12-02 09:26] LABS: CKMB < 0.5 ng/ml (0.5-3.6)
[2017-12-02] MEDS: CLONIDINE HCL 0.3 MG TAB PO SCH ×2 (09:37→19:54)
[2017-12-02] MEDS: ASPIRIN 81 MG ECTAB PO SCH (09:37)
[2017-12-02 09:41] LABS: HEMOGLOBIN A1C 5.7 % (4.5-5.6)
--- NOTE | 2017-12-02 09:51 | Cardiology Consultation ---
Cardiology Consultation Date of Consultation: Dec 02, 2017. Requesting Physician: Dr. Hsu Reason for Consultation: Chest pain Pt evaluation today including: conversation w/ patient, physical exam, lab review, review of studies, review of inpatient medication list, conversation w/ attending History of Present Illness This is a 56-year-old gentleman with a history of tobacco abuse, hypertension but no known cardiac disease. He presented to the emergency room on 12/01/2017 with chest discomfort, it had started 11/30/2017, it was better in the morning of December 01 but then when he went to work (he works in [employer]) the discomfort got worse and he came into the emergency room. It was also associated with shortness of breath and exacerbated by exertion, although he does get it at rest as well including during the night last night. In the emergency room his chest discomfort was transiently relieved with sublingual nitroglycerin. He describes the symptoms as worsening with exertion, being a quite severe prepectoral discomfort with radiation to his back. There is no particular position that makes it better or worse. It may be exacerbated by taking a deep breath although that is not very consistent. He has not had this discomfort before. So far evaluation includes negative cardiac enzymes 3, and electrocardiogram which does not show acute changes and a CT scan which showed some debris in his bronchus but no pulmonary embolism. Past Medical/Surgical History (1) Hypertension Family History Coronary artery disease Hyperlipidemia Hypertension Leukemia Social History Smoking Status: Current Every Day Smoker History of Alcohol Use: Yes (3-5 Beers a day ) Review of Systems Constitutional: No fever, No weight loss, No weakness Respiratory: No cough, No wheezing, No shortness of breath, No dyspnea on exertion Cardiac: + see HPI, + chest pain, No orthopnea, No PND, No edema, No palpitations Abdomen: No pain, No nausea, No vomiting, No diarrhea, No GI bleeding Male : No urinary frequency, No nocturia more than once/night, No slowing stream, No sexual dysfunction Neurologic: No paralysis, No weakness, No numbness/tingling, No balance problems Heme: No abnormal bleeding/bruising, No clotting problems Endo: No fatigue Skin: No problem reported All Other Systems: Reviewed and Negative Allergies Coded Allergies: No Known Allergies (Unverified , 12/01/17) Medications Current Inpatient Medications Medications (Trade) Dose Ordered Sig/Kaiden Route Start Time Stop Time Status Last Admin Dose Admin Enoxaparin Sodium (Lovenox Inj) 40 mg DAILY@2000 SC 12/01/17 22:00 12/31/17 21:59 12/01/17 22:01 40 MG Acetaminophen (Tylenol Tab) 650 mg Q4H PRN PO 12/01/17 20:00 12/31/17 19:59 12/02/17 05:14 650 MG Al Hydrox/Mg Hydrox/Simethicone (Maalox Max Susp) 15 ml Q4H PRN PO 12/01/17 20:00 12/31/17 19:59 Magnesium Hydroxide (Milk Of Magnesia Susp) 30 ml Q12H PRN PO 12/01/17 20:00 12/31/17 19:59 Ondansetron HCl (Zofran Inj) 4 mg Q6H PRN IV 12/01/17 20:00 12/31/17 19:59 Nitroglycerin (Nitrostat Tab) 0.4 mg UD PRN SL 12/01/17 20:00 12/31/17 19:59 12/02/17 04:02 0.4 MG Aspirin (Ecotrin Tab) 81 mg QAM PO 12/02/17 09:00 01/01/18 08:59 Polyethylene (Miralax Powder Packet) 17 gm DAILY PRN PO 12/01/17 20:00 12/31/17 19:59 Amlodipine Besylate (Norvasc Tab) 5 mg QPM PO 12/01/17 21:00 12/31/17 20:59 12/01/17 22:00 5 MG Clonidine HCl (Catapres Tab) 0.3 mg BID PO 12/01/17 21:00 12/31/17 20:59 12/01/17 22:01 0.3 MG Lisinopril (Zestril Tab) 20 mg QPM PO 12/01/17 21:00 12/31/17 20:59 12/01/17 22:00 20 MG Sodium Chloride 1,000 ml @ 75 mls/hr [id number] IV 12/01/17 21:30 12/31/17 21:29 Future Hold 12/01/17 22:01 75 MLS/HR Miscellaneous (Iv Fluids Completed) 1 ea PRN PRN N/A 12/01/17 20:45 12/01/18 20:44 Ioversol (Optiray 320) 104 ml UD PRN IV 12/01/17 21:00 12/05/17 20:59 Potassium Chloride (Klor-Con M10) 40 meq BID PO 12/02/17 09:30 12/31/17 20:59 UNV Physical Exam Vital Signs Past 12 Hours Date Time Temp Pulse Resp B/P (MAP) Pulse Ox O2 Delivery O2 Flow Rate FiO2 12/02/17 09:02 Room Air 12/02/17 07:05 37.0 54 18 173/82 (112) 95 Room Air 12/02/17 04:00 Room Air 12/02/17 04:00 37.5 59 20 166/90 (115) 94 Room Air 12/02/17 00:23 37.0 51 16 119/70 (86) 96 Room Air 12/02/17 00:00 Room Air 12/01/17 22:44 60 144/74 (97) 12/01/17 22:25 37.1 68 20 195/105 97 Room Air Constitutional: General Apperance: heathly-appearing Level of Distress: NAD Psychiatric: Mental Status: active & alert Head: normocephalic Eyes: EOM: EOMI ENMT: normal ENT inspection, hearing grossly normal Neck: supple, no masses Lungs: Respiratory effort: no dyspnea, good air movement Auscultation: breath sounds normal, no wheezing Cardiovascular: Heart Auscultation: RRR, no murmurs, no rubs, no gallops Peripheral Pulses: Bruits: none appreciated Abdomen: Bowel Sounds: normal Inspection & Palpation: soft, no tenderness, guarding & rebound, no masses Musculoskeletal: normal strength (5/5 throughout) Extremities: no edema Neurologic: Cranial Nerves: grossly intact Sensation: grossly intact Data Laboratory Results: Last 24 Hours Test 12/01/17 16:30 12/01/17 16:37 12/02/17 00:21 12/02/17 08:30 White Blood Count 9.42 K/uL 10.02 K/uL Red Blood Count 4.63 M/uL 4.71 M/uL Hemoglobin 14.7 g/dL 15.1 g/dL Hematocrit 40.8 % 42.1 % Mean Corpuscular Volume 88.1 fL 89.4 fL Mean Corpuscular Hemoglobin 31.7 pg 32.1 pg Mean Corpuscular Hemoglobin Concent 36.0 g/dl 35.9 g/dl Platelet Count 179 K/uL 171 K/uL Mean Platelet Volume 9.6 fL 9.8 fL Neutrophils (%) (Auto) 77.0 % Lymphocytes (%) (Auto) 14.5 % Monocytes (%) (Auto) 7.5 % Eosinophils (%) (Auto) 0.6 % Basophils (%) (Auto) 0.2 % Neutrophils # (Auto) 7.24 K/uL Lymphocytes # (Auto) 1.37 K/uL Monocytes # (Auto) 0.71 K/uL Eosinophils # (Auto) 0.06 K/uL Basophils # (Auto) 0.02 K/uL RDW Standard Deviation 43.3 fL 44.1 fL RDW Coefficient of Variation 13.5 % 13.4 % Immature Granulocyte % (Auto) 0.2 % Immature Granulocyte # (Auto) 0.02 K/uL Prothrombin Time 10.4 SECONDS Prothromb Time International Ratio 1.0 Activated Partial Thromboplast Time 28.2 SECONDS Partial Thromboplastin Ratio 1.1 D-Dimer 710 ug/L FEU Sodium Level 136 mmol/L 139 mmol/L Potassium Level 2.9 mmol/L 3.1 mmol/L Chloride Level 101 mmol/L 103 mmol/L Carbon Dioxide Level 27 mmol/L 26 mmol/L Anion Gap 8.0 mmol/L 10.0 mmol/L Blood Urea Nitrogen 13 mg/dl 14 mg/dl Creatinine 0.99 mg/dl 0.95 mg/dl Est Creatinine Clear Calc Drug Dose 92.4 ml/min 93.9 ml/min Estimated GFR () 99.0 103.3 Estimated GFR (Non- 85.4 89.1 BUN/Creatinine Ratio 13.4 14.4 Random Glucose 98 mg/dl 108 mg/dl Calcium Level 9.1 mg/dl 9.2 mg/dl Magnesium Level 2.1 mg/dl 2.0 mg/dl Bedside Troponin I < 0.030 ng/ml Total Creatine Kinase 59 U/L 50 U/L Creatine Kinase MB < 0.5 ng/ml < 0.5 ng/ml Creatine Kinase MB Ratio Troponin I 0.016 ng/ml < 0.015 ng/ml Erythrocyte Sedimentation Rate 69 mm/hr C-Reactive Protein 10.50 mg/dl Triglycerides Level 76 mg/dl Cholesterol Level 163 mg/dl HDL Cholesterol 31 mg/dl LDL Cholesterol, Calculated 117 mg/dl VLDL Cholesterol, Calculated 15 mg/dl Cholesterol/HDL Ratio 5.3 Test 12/02/17 08:38 Imaging: Stress echo is pending EKG: His electrocardiogram on arrival demonstrates sinus rhythm, left ventricular hypertrophy by voltage but no acute change. This was repeated several times yesterday and this morning with no changes. Telemetry reviewed: Sinus rhythm, no significant abnormality. Assessment & Plan #1. Chest discomfort: I think this is unlikely to be cardiac in nature, certainly myocardial ischemia would be unusual with the magnitude of his discomfort that negative cardiac enzymes and a normal electrocardiogram. The symptoms really do not sound like pericarditis although that is conceivable. I would like to proceed with stress testing, but wanted to get his blood pressure and her little better control before we do that. #2. Hypertension: He has quite significant hypertension and has left ventricular hypertrophy by electrocardiography. His blood pressure this morning is quite elevated and he has just received his Catapres. I would like to get his blood pressure a little better control before we start a stress test signed postponing that until little bit later today, hopefully late this morning if his blood pressure comes under control. Thank you for allowing me to participate in his care.
[2017-12-02] MEDS: POTASSIUM CHLORIDE 20 MEQ TABCR PO SCH ×2 (10:23→19:53)
[2017-12-02] MEDS ORDERED: ALBUT/IPRATROP 3MG/0.5MG NEB 3 ML VIAL INH STA (13:54)
[2017-12-02] MEDS ORDERED: ALBUT/IPRATROP 3MG/0.5MG NEB 3 ML VIAL INH PRN (14:00)
[2017-12-02] MEDS ORDERED: KETOROLAC TROMETHAMINE 30 MG/ML VIAL IV STA (14:58)
[2017-12-02 16:13] LABS: INFLUENZA B ANTIGEN Neg for Influ B (NEG)
--- NOTE | 2017-12-02 17:36 | EXERCISE STRESS ECHO ---
*NOTICE TO RECEIVING DEMOCRAT AGENCY This information is strictly Confidential and protected under [place] law. [place] law prohibits you from making any further disclosure of this information unless further disclosure is expressly permitted by the written consent of the person to whom it pertains or is authorized by law. A general authorization for the release of medical or other information is not sufficient for this purpose. Hospital accepts no responsibility if the information is made available to any other person, INCLUDING THE PATIENT. Interpretation Summary * Name: RADHIKA DEE Study Date: 12/02/2017 09:28 AM BP: 145/87 mmHg * Patient Location: .MED\S\N280\S\2 HR: 55 * : 1960 (M/d/yyyy) Gender: Male Height: 68 in * Age: 57 yrs Ethnicity: [place] Weight: 201 lb * Ordering Physician: Yanet Maria * Referring Physician: No Doctor, Assigned * Performed By: Sofia Pablo RDCS * * Reason For Study: Chest pain * BSA: 2.0 m2 * -- Conclusions -- * 1. Negative exercise stress echo for ischemia at 85% MPHR. * 2. Negative stress ECG for ischemia. Occasional PVCs in recovery. * 3. Average functional capacity for age. Exercised 9:00 min, acheiving 10.1 METS. * 4. Non-limiting mild chest dullness with exercise. Hypertensive response to exercise (Peak BP 231/98). * 5. Low risk Flowers Treadmill Score of 5. * 6. Normal biventricular size and function. LVEF 55-60%. Borderline concentric LVH. Mild mitral regurgitation. Grade II dysfunction. * 7. No prior studies for comparison. Procedure Details * ECHOEX, CPT #13004 * ECHO DOPPLER, CPT #75159 * ECHO COLOR FLOW, CPT #52478 Left Ventricle * The left ventricle is grossly normal size. * There is borderline concentric left ventricular hypertrophy. * Ejection Fraction = 55-60%. * No regional wall motion abnormalities noted. Right Ventricle * The right ventricle is grossly normal size. * The right ventricular systolic function is normal as assessed by tricuspid annular plane systolic excursion (TAPSE) (normal >1.5 cm). Atria * The left atrium is severely dilated. * The right atrium is mildly dilated. * No ASD detected; PFO is not assessed. Mitral Valve * The mitral valve is grossly normal. * There is no mitral valve stenosis. * There is mild mitral regurgitation. Tricuspid Valve * The tricuspid valve anatomy is normal. * There is no tricuspid stenosis. * There is trace tricuspid regurgitation. Aortic Valve * The aortic valve opens well. * No hemodynamically significant valvular aortic stenosis. * There is no significant aortic regurgitation. Pulmonic Valve * The pulmonary valve is inadequately visualized, but the Doppler data is adequate for interpretation. * Trace pulmonic valvular regurgitation. Great Vessels * The aortic root and proximal ascending aorta are normal sized. Pericardium * There is no pericardial effusion. Stress Parameters * Normal baseline electrocardiogram. * Arrhythmia induced during stress: occasional PVC's. * Arrhythmia noted in recovery: occasional PVC's. * Rest heart rate was '55' BPM. * Rest blood pressure was '145/87' * Maximum heart rate achieved was 141 bpm. * Maximum heart rate was 85 % of maximum age-predicted heart rate. * Maximum blood pressure was '231/98' * Total exercise time was '9:01' * Maximum exercise MET level achieved was '10.10' METS * Maximum treadmill speed was '3.30' miles per hour. * Maximum treadmill elevation was '14.00'% grade. * Exercise was terminated due to 'achieving target heart rate' Left Ventricular Findings with Stress * The study was technically good with many images being of high quality. Left Ventricular Diastolic Function * Diastolic dysfunction, Grade II (pseudonormalization pattern). MMode 2D Measurements and Calculations IVSd 0.72 cm LVIDd 5.3 cm LVIDs 3.6 cm LVPWd 0.78 cm IVS/LVPW 0.93 FS 31.9 % EDV(Teich) 137.0 ml ESV(Teich) 55.5 ml EF(Teich) 59.5 % EDV(cubed) 151.2 ml ESV(cubed) 47.8 ml EF(cubed) 68.4 % LV mass(C)d 139.5 grams LV mass(C)dI 68.1 grams/m\S\2 SV(Teich) 81.5 ml SI(Teich) 39.8 ml/m\S\2 SV(cubed) 103.4 ml SI(cubed) 50.5 ml/m\S\2 Ao root diam 3.8 cm Ao root area 11.5 cm\S\2 ACS 1.5 cm LA dimension 3.5 cm asc Aorta Diam 3.6 cm LA/Ao 0.93 LVAd ap4 38.9 cm\S\2 LVLd ap4 9.3 cm EDV(MOD-sp4) 135.9 ml EDV(sp4-el) 137.9 ml LVAs ap4 22.2 cm\S\2 LVLs ap4 7.2 cm ESV(MOD-sp4) 58.3 ml ESV(sp4-el) 57.6 ml EF(MOD-sp4) 57.1 % EF(sp4-el) 58.2 % LVAd ap2 37.8 cm\S\2 LVLd ap2 9.4 cm EDV(MOD-sp2) 128.7 ml EDV(sp2-el) 128.9 ml LVAs ap2 20.9 cm\S\2 LVLs ap2 7.3 cm ESV(MOD-sp2) 55.4 ml ESV(sp2-el) 50.8 ml EF(MOD-sp2) 56.9 % EF(sp2-el) 60.6 % LVLd %diff 1.3 % EDV(MOD-bp) 133.8 ml LVLs %diff 0.48 % ESV(MOD-bp) 56.8 ml EF(MOD-bp) 57.5 % SV(MOD-sp4) 77.6 ml SI(MOD-sp4) 37.9 ml/m\S\2 SV(MOD-sp2) 73.2 ml SI(MOD-sp2) 35.8 ml/m\S\2 SV(MOD-bp) 77.0 ml SI(MOD-bp) 37.6 ml/m\S\2 SV(sp4-el) 80.2 ml SI(sp4-el) 39.2 ml/m\S\2 SV(sp2-el) 78.1 ml SI(sp2-el) 38.1 ml/m\S\2 Doppler Measurements and Calculations MV E max darius 74.4 cm/sec MV A max darius 37.2 cm/sec MV E/A 2.0 MV dec time 0.28 sec Ao V2 max 134.2 cm/sec Ao max PG 7.2 mmHg Ao max PG (full) 2.9 mmHg LV V1 max PG 4.3 mmHg LV V1 max 103.4 cm/sec PA V2 max 85.4 cm/sec PA max PG 2.9 mmHg PA acc slope 417.4 cm/sec\S\2 PA acc time 0.17 sec PA pr(Accel) 4.0 mmHg
--- NOTE | 2017-12-02 18:58 | Progress Note ---
Subjective Date of Service: Dec 02, 2017. 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 he "simply felt terrible"/exhausted as if he had an illness chest pain started that day on Thursday felt better but still w/ off/on chest discomfort & dyspnea no fevers or chills pain is pleuritic in nature does radiate to back and to the outer chest at times he has associated dyspnea when asked if pain is worse with lying down he wasn't sure Problem List Medical Problems: (1) Exertional chest pain Status: Acute (2) Hypertensive urgency Status: Acute (3) Hypokalemia Status: Acute (4) Right flank pain Status: Acute Review of Systems Constitutional: No fever, No chills Respiratory: + cough, + dyspnea on exertion, No sputum, No wheezing, No dyspnea at rest Cardiac: + chest pain, No orthopnea, No PND, No edema Abdomen: No pain, No nausea, No vomiting Objective Vital Signs Date Time Temp Pulse Resp B/P (MAP) Pulse Ox O2 Delivery O2 Flow Rate FiO2 12/02/17 16:00 Nasal Cannula 2.0 12/02/17 16:00 36.4 62 14 143/82 (102) 96 Nasal Cannula 2.0 12/02/17 15:04 64 18 97 Nasal Cannula 2.0 12/02/17 14:32 62 22 166/86 (112) 99 12/02/17 14:28 63 22 166/84 (111) 98 12/02/17 14:15 37.1 60 22 175/91 (119) 99 Room Air 12/02/17 14:10 61 22 174/100 (124) 97 Nasal Cannula 2.0 12/02/17 11:59 Room Air 12/02/17 10:25 55 155/84 (107) 12/02/17 10:00 60 186/96 (126) 97 Room Air 12/02/17 09:37 71 22 192/94 (126) 96 Room Air 12/02/17 09:02 Room Air 12/02/17 07:05 37.0 54 18 173/82 (112) 95 Room Air 12/02/17 04:00 Room Air 12/02/17 04:00 37.5 59 20 166/90 (115) 94 Room Air 12/02/17 00:23 37.0 51 16 119/70 (86) 96 Room Air 12/02/17 00:00 Room Air 12/01/17 22:44 60 144/74 (97) 12/01/17 22:25 37.1 68 20 195/105 97 Room Air 12/01/17 20:18 62 20 180/105 97 Room Air Physical Exam General Appearance: no apparent distress ENT: + nasal congestion Neck: no JVD Respiratory/Chest: lungs clear, normal breath sounds, no respiratory distress, no accessory muscle use Cardiovascular: regular rate, rhythm, no gallop, no murmur Abdomen: normal bowel sounds, non tender, soft, no organomegaly Extremities: no pedal edema Neurologic/Psychiatric: alert, oriented x 3 Laboratory Results Last 24 Hours Test 12/02/17 00:21 12/02/17 08:30 12/02/17 09:46 12/02/17 15:20 Total Creatine Kinase 59 U/L 50 U/L Creatine Kinase MB < 0.5 ng/ml < 0.5 ng/ml Creatine Kinase MB Ratio Troponin I 0.016 ng/ml < 0.015 ng/ml White Blood Count 10.02 K/uL Red Blood Count 4.71 M/uL Hemoglobin 15.1 g/dL Hematocrit 42.1 % Mean Corpuscular Volume 89.4 fL Mean Corpuscular Hemoglobin 32.1 pg Mean Corpuscular Hemoglobin Concent 35.9 g/dl RDW Standard Deviation 44.1 fL RDW Coefficient of Variation 13.4 % Platelet Count 171 K/uL Mean Platelet Volume 9.8 fL Erythrocyte Sedimentation Rate 69 mm/hr Sodium Level 139 mmol/L Potassium Level 3.1 mmol/L Chloride Level 103 mmol/L Carbon Dioxide Level 26 mmol/L Anion Gap 10.0 mmol/L Blood Urea Nitrogen 14 mg/dl Creatinine 0.95 mg/dl Est Creatinine Clear Calc Drug Dose 93.9 ml/min Estimated GFR () 103.3 Estimated GFR (Non- 89.1 BUN/Creatinine Ratio 14.4 Random Glucose 108 mg/dl Estimated Average Glucose 117 mg/dl Hemoglobin A1c 5.7 % Calcium Level 9.2 mg/dl Magnesium Level 2.0 mg/dl C-Reactive Protein 10.50 mg/dl Triglycerides Level 76 mg/dl Cholesterol Level 163 mg/dl HDL Cholesterol 31 mg/dl LDL Cholesterol, Calculated 117 mg/dl VLDL Cholesterol, Calculated 15 mg/dl Cholesterol/HDL Ratio 5.3 Hepatitis C Antibody NEG Influenza Type A Antigen Neg for Influ A Influenza Type B Antigen Neg for Influ B Test 12/02/17 17:08 Troponin I 0.263 ng/ml Assessment and Plan 57yo male with: 1. pleuritic chest pain - despite 2 days of chest discomfort he had 3 negative troponins prior to his stress test today. He had no wall motion abnormalities with stress today and thus negative stress echo. No obvious pericardial effusion on echo today either. CTA chest with no PE but secretions in the right mainstem bronchus and RLL; no associated pneumonitis, however. I am uncertain if this finding pertains to his symptoms. CTA neg for aortic abnormalities and NO PE. Following his stress echo today he developed pleuritic chest pain once again. Nitro SL was given without relief. I gave him a duoneb - "did nothing" according to the patient. His lung exam was unchanged following the neb as well. I then gave toradol 30mg IV x 1 and within 20 minutes his pleuritic chest pain was fully resolved. Sed rate is high at 69; crp is high at 10. With the recent illness, elevated inflammatory markers, and pleuritic pain ... viral pericarditis? Other? Plan to repeat his troponin tonight and in the AM; repeat EKG tonight and in the AM; leave on telemetry; toradol 30mg IV q6h prn. 2. uncontrolled HTN - due to hyperaldosteronism? The chronically low potassium is suspicious for such. Continue all outpatient BP meds and adjust as needed. Renin/al levels are pending. 3. hypokalemia - replace, repeat K in the AM. 4. tobacco use - halfway house counselor to quit. 5. mild hyperlipidemia - will halfway house counselor him on his values. 6. DVT proph - lovenox. 7. abnormal chest CT - could he have had aspiration event? are the findings indicative of early bronchitis? other? rapid flu test negative. repeat cxr later tonight to exclude developing pneumonia observe overnight care discussed multiple times with cardiology today Continued [facility] stay due to: abnormal vital signs (elevated BP), other (chest pain) Discharge planning: home
--- NOTE | 2017-12-02 19:01 | Progress Note ---
Progress Note Date of Service Dec 02, 2017. Progress Note time - 1900 troponin this evening was 0.26 prior troponins were zero repeat EKG is similar to multiple prior EKGs -- NSR, PVCs, LVH with early repolarization/j-point elevation in multiple leads, no new ST segment changes spoke with on-call cardiology - plan to continue observing him overnight will repeat his troponin in 6 hours could new troponin elevation be due to mario-pericarditis? (see my prior progress note) Chris POWELL MD
--- NOTE | 2017-12-02 19:15 | DIAGNOSTIC IMAGING REPORT ---
CHEST 2 VIEWS ROUTINE CLINICAL HISTORY: abnormal chest CT; eval for developing pneumonia pneumonia COMPARISON STUDY: 12/01/2017 FINDINGS: Early developing parenchymal infiltrative process right base. Lungs otherwise appear clear. Mild stable cardiomegaly. IMPRESSION: Minimal developing parenchymal infiltrate right base The above report was generated using voice recognition software. It may contain grammatical, syntax or spelling errors. Electronically signed by: Nils Randolph M.D. 12/02/2017 7:14 PM Dictated Date/Time: 12/02/2017 7:13 PM
[2017-12-02] MEDS ORDERED: LEVOFLOXACIN 750 MG TAB PO ONE (19:45)
[2017-12-02] MEDS: AMLODIPINE BESYLATE 5 MG TAB PO SCH (19:54)
[2017-12-02] MEDS: LISINOPRIL 20 MG TAB PO SCH (19:54)
[2017-12-02] MEDS: ENOXAPARIN 40 MG/0.4 ML SYR SC SCH (19:58)
[2017-12-02] MEDS ORDERED: KETOROLAC TROMETHAMINE 30 MG/ML VIAL IV PRN (21:15)
[2017-12-03] VITALS (10 sets, daily range): BP systolic 155–181; BP diastolic 62–104; PULSE 58–67; TEMP 36.7–37.2; O2SAT 95–97
[2017-12-03 06:47] LABS: CALCIUM 8.8 mg/dl (8.5-10.1); CREATININE 0.88 mg/dl (0.60-1.40); POTASSIUM 3.1 mmol/L (3.5-5.1)
[2017-12-03] MEDS: CLONIDINE HCL 0.3 MG TAB PO SCH ×2 (08:29→20:41)
[2017-12-03] MEDS: POTASSIUM CHLORIDE 20 MEQ TABCR PO SCH ×2 (08:29→20:41)
[2017-12-03] MEDS: ASPIRIN 81 MG ECTAB PO SCH (08:29)
[2017-12-03] MEDS ORDERED: SPIRONOLACTONE 25 MG TAB PO SCH (09:00)
[2017-12-03] MEDS: LEVOFLOXACIN 750 MG TAB PO SCH (14:03)
[2017-12-03] MEDS ORDERED: SPIRONOLACTONE 25 MG TAB PO ONE (14:30)
[2017-12-03] MEDS: IPRATROPIUM BROMIDE/ALBUTEROL respimat INH INH SCH ×3 (16:26→20:40)
[2017-12-03] MEDS ORDERED: AMLODIPINE BESYLATE 5 MG TAB PO ONE (17:00)
--- NOTE | 2017-12-03 19:00 | Progress Note ---
Subjective Date of Service: Dec 03, 2017. Subjective Pt evaluation today including: conversation w/ patient, physical exam, chart review, lab review, review of studies (stress test, cxr, etc), review of inpatient medication list Pain: no chest pain overnight PO Intake: normal Voiding: no voiding problems tele with PVCs and occasional bigeminy after receiving toradol last evening his chest pain did not recur overnight his appetite is improved no cough no fever he is walking the hallways without dyspnea BPs continue to remain high Problem List Medical Problems: (1) Exertional chest pain Status: Acute (2) Hypertensive urgency Status: Acute (3) Hypokalemia Status: Acute (4) Right flank pain Status: Acute Review of Systems Constitutional: No fever, No chills, No fatigue Respiratory: No cough, No shortness of breath, No dyspnea on exertion Cardiac: No chest pain, No orthopnea, No PND, No edema Abdomen: No pain Objective Vital Signs Date Time Temp Pulse Resp B/P (MAP) Pulse Ox O2 Delivery O2 Flow Rate FiO2 12/03/17 17:18 67 181/104 (129) 12/03/17 16:10 66 166/96 (119) 61 173/102 (125) 12/03/17 16:00 Room Air 12/03/17 14:45 36.8 67 18 172/92 (118) 95 Room Air 12/03/17 12:24 96 Room Air 12/03/17 12:23 37.2 66 20 174/90 (118) 96 Room Air 169/84 (112) 12/03/17 08:06 95 Room Air 12/03/17 08:00 37.2 64 20 170/103 (125) 96 Room Air 61 167/96 (119) 65 164/99 (120) 64 171/95 (120) 12/03/17 05:12 37.2 64 19 173/62 (99) 96 Room Air 12/03/17 04:00 Room Air 12/03/17 00:00 Room Air 12/02/17 20:13 Room Air 12/02/17 20:06 36.8 59 20 161/99 (119) 95 Room Air Physical Exam General Appearance: no apparent distress ENT: pharynx normal Neck: no JVD Respiratory/Chest: no respiratory distress, no accessory muscle use, + rales ( very mild - RLL), + wheezing (end-exp b/l ) Cardiovascular: regular rate, rhythm, no gallop, no murmur Abdomen: normal bowel sounds, non tender, soft, no organomegaly Extremities: no pedal edema Neurologic/Psychiatric: alert, oriented x 3 Laboratory Results Last 24 Hours Test 12/02/17 22:50 12/03/17 05:48 Troponin I 0.164 ng/ml Sodium Level 137 mmol/L Potassium Level 3.1 mmol/L Chloride Level 103 mmol/L Carbon Dioxide Level 26 mmol/L Anion Gap 8.0 mmol/L Blood Urea Nitrogen 15 mg/dl Creatinine 0.88 mg/dl Est Creatinine Clear Calc Drug Dose 101.8 ml/min Estimated GFR () 111.3 Estimated GFR (Non- 96.0 BUN/Creatinine Ratio 16.5 Random Glucose 118 mg/dl Calcium Level 8.8 mg/dl Assessment and Plan 57yo male with: 1. pleuritic chest pain - despite 2 days of chest discomfort he had 3 negative troponins prior to his stress test. His stress echo was negative for wall motion abnormalities and also did not reveal any pericardial fluid. CTA chest with no PE but secretions in the right mainstem bronchus and RLL; no associated pneumonitis, however. CTA neg for aortic abnormalities and NO PE. Sed rate is high at 69; crp is high at 10. I believe if he had pericarditis his pain would have persisted overnight. Serial EKGs have been negative for acute changes throughout his stay. Today he has mild end-exp wheezing, focal RLL rales, and cxr last pm showed a developing RLL infiltrate. In light of all the available information I believe his intermittent chest discomfort has been from the lungs themselves. perhaps bronchitis/pleurisy/RLL pneumonia. Continue to monitor. Repeat CRP in am. 2. uncontrolled HTN / hypertensive urgency - due to hyperaldosteronism? The chronically low potassium is suspicious for such. Renin/al levels are pending. Will check renal artery dopplers to r/o CANDIDO to be complete. Check TSH. Will add aldactone and titrate such. 3. hypokalemia - replace, repeat K in the AM. 4. tobacco use - grief counselor to quit. 5. mild hyperlipidemia - will grief counselor him on his values. 6. DVT proph - lovenox. 7. abnormal chest CT - could he have had aspiration event? are the findings indicative of early bronchitis? other? rapid flu test negative. repeat cxr last evening with developing RLL pneumonia. 8. RLL pneumonia - suspected - levaquin, day #2. Elevated inflammatory markers - 2nd to pneumonia? 9. probable reactive bronchitis - combivent QID; consider prednisone. 10. +troponin - myocardial demand ischemia in setting of uncontrolled HTN and possible pneumonia? His entire clinical picture has been confusing since admission. The troponin today is trending down. Repeat again in the AM. In light of his persistently high BPs will keep him overnight to obtain better BP control. Continued [facility] stay due to: abnormal vital signs Discharge planning: home
[2017-12-03] MEDS: ENOXAPARIN 40 MG/0.4 ML SYR SC SCH (20:40)
[2017-12-03] MEDS: AMLODIPINE BESYLATE 5 MG TAB PO SCH (20:41)
[2017-12-03] MEDS: LISINOPRIL 20 MG TAB PO SCH (20:41)
[2017-12-04] VITALS (15 sets, daily range): BP systolic 121–161; BP diastolic 77–101; PULSE 54–60; TEMP 36.5–36.7; O2SAT 96–98
[2017-12-04 06:47] LABS: CALCIUM 8.9 mg/dl (8.5-10.1); CREATININE 0.78 mg/dl (0.60-1.40); POTASSIUM 3.2 mmol/L (3.5-5.1)
--- NOTE | 2017-12-04 07:04 | DIAGNOSTIC IMAGING REPORT ---
DUPLEX RENAL ARTERY CLINICAL HISTORY: malignant HTN hypertension TECHNIQUE: Arterial Doppler COMPARISON STUDY: None FINDINGS: Velocities and resistive indices are considered unremarkable. No evidence for significant stenotic process. No abnormal impedance characteristics. IMPRESSION: No evidence for significant renal arterial stenosis. The above report was generated using voice recognition software. It may contain grammatical, syntax or spelling errors. Electronically signed by: Nils Randolph M.D. 12/04/2017 7:03 AM Dictated Date/Time: 12/04/2017 7:02 AM
[2017-12-04] MEDS: IPRATROPIUM BROMIDE/ALBUTEROL respimat INH INH SCH ×2 (08:52→13:00)
[2017-12-04] MEDS: CLONIDINE HCL 0.3 MG TAB PO SCH (08:52)
[2017-12-04] MEDS: POTASSIUM CHLORIDE 20 MEQ TABCR PO SCH (08:52)
[2017-12-04] MEDS: ASPIRIN 81 MG ECTAB PO SCH (08:52)
[2017-12-04] MEDS: AMLODIPINE BESYLATE 5 MG TAB PO SCH (08:52)
[2017-12-04] MEDS ORDERED: SPIRONOLACTONE 25 MG TAB PO SCH (09:00)
--- NOTE | 2017-12-04 09:47 | Cardiology Follow-Up ---
Subjective Date of Service: Dec 04, 2017. Pt evaluation today including: conversation w/ patient, physical exam, lab review, review of studies, review of inpatient medication list History of Present Illness This is a 56-year-old gentleman with a history of tobacco abuse, hypertension but no known cardiac disease. He presented to the emergency room on 12/01/2017 with chest discomfort, it had started 11/30/2017, it was better in the morning of December 01 but then when he went to work (he works in [employer]) the discomfort got worse and he came into the emergency room. It was also associated with shortness of breath and exacerbated by exertion, although he does get it at rest as well including during the night last night. In the emergency room his chest discomfort was transiently relieved with sublingual nitroglycerin. He describes the symptoms as worsening with exertion, being a quite severe prepectoral discomfort with radiation to his back. There is no particular position that makes it better or worse. It may be exacerbated by taking a deep breath although that is not very consistent. He has not had this discomfort before. With no explanation for the discomfort a stress echo was done on December 02, 2017. He exercised well for 9 minutes, his blood pressure was markedly elevated that morning and we held the stress test for some time and he received Catapres, his pressure was acceptable at started stress test but was quite hypertensive during the test with a peak pressure over 200 mmHg systolic. He did have some of his discomfort during the test, the test itself however was negative for ischemia both on electrocardiographic recordings and by echo. That evening however cardiac enzymes were done which were somewhat elevated, his peak troponin (which was the first 1 drawn at 5 PM) was 0.263, the next one was also elevated but lower and I repeated this morning and it is normal. Today he is feeling better, he has not had chest discomfort over the last day or so but has not been very active either. His blood pressure remains elevated. Social History Smoking Status: Current Every Day Smoker History of Alcohol Use: Yes (3-5 Beers a day ) Review of Systems Respiratory: No cough, No shortness of breath, No dyspnea on exertion Cardiac: No chest pain, No orthopnea, No PND, No edema Medications Cardiovascular: Item Value Date Time Spironolactone 50 mg 12/04/17 0900 (Aldactone Tab) QAM/PO 12/04/17 0852 Amlodipine 5 mg 12/03/172099 Besylate BID/PO 12/04/17 0852 (Norvasc Tab) Potassium Chloride 40 meq 12/02/17 1000 (Klor-Con Tab) BID/PO 12/04/17 0852 Aspirin 81 mg 12/02/17 0900 (Ecotrin Tab) QAM/PO 12/04/17 0852 Enoxaparin Sodium 40 mg 12/01/17 2200 (Lovenox Inj) DAILY@2000/SC 12/03/172039 Clonidine HCl 0.3 mg 12/01/172099 (Catapres Tab) BID/PO 12/04/17 0852 Lisinopril 20 mg 12/01/172099 (Zestril Tab) QPM/PO 12/03/172040 Objective Vital Signs Past 12 Hours Date Time Temp Pulse Resp B/P (MAP) Pulse Ox O2 Delivery O2 Flow Rate FiO2 12/04/17 07:27 36.7 60 16 145/92 (109) 96 Room Air 12/04/17 04:48 36.6 54 18 161/101 (121) 97 Room Air 12/04/17 04:00 Room Air 2.0 12/04/17 00:00 Room Air 2.0 12/03/17 23:55 36.7 58 18 155/93 (113) 97 Room Air Last Recorded Weight-Kilograms: 90.100 Physical Exam Constitutional: General Apperance: heathly-appearing Level of Distress: NAD Lungs: Respiratory effort: no dyspnea, good air movement Auscultation: breath sounds normal, no wheezing Cardiovascular: Heart Auscultation: RRR, no murmurs, no rubs, no gallops Peripheral Pulses: Bruits: none appreciated Extremities: no edema Data Laboratory Results: Last 24 Hours Test 12/04/17 05:57 12/04/17 08:44 Sodium Level 136 mmol/L Potassium Level 3.2 mmol/L Chloride Level 103 mmol/L Carbon Dioxide Level 24 mmol/L Anion Gap 9.0 mmol/L Blood Urea Nitrogen 13 mg/dl Creatinine 0.78 mg/dl Est Creatinine Clear Calc Drug Dose 114.8 ml/min Estimated GFR () 117.0 Estimated GFR (Non- 100.9 BUN/Creatinine Ratio 16.5 Random Glucose 90 mg/dl Calcium Level 8.9 mg/dl C-Reactive Protein 6.95 mg/dl Thyroid Stimulating Hormone (TSH) 4.960 uIu/ml Troponin I 0.030 ng/ml EKG: Electrocardiogram today is pending Telemetry reviewed: Sinus rhythm, no significant abnormality Assessment and Plan #1. Chest discomfort: I do not think that his chest discomfort is cardiac, his presentation, description and lack of enzyme abnormalities suggest that it is nonischemic. He did have some of it during his stress test however it was not as severe as on presentation when his markers were all negative. #2. Elevated cardiac enzymes: His enzymes were all negative on admission with his more severe chest discomfort, after his stress test he had elevated cardiac enzymes but in the descending pattern. This could be just demand ischemia from hypertension, but is a little bit unusual. It could also represent ischemia due to coronary artery disease and stress tests are not perfect at identifying ischemia. I discussed it with him, I think it is reasonable to consider catheterization given all this data. I would be surprised if he has noncritical disease, his arteries could even be negative for obstruction but that would be useful to know since we really do not have an explanation for his symptoms. We will plan on doing catheterization this afternoon. #2. Hypertension: He has quite significant hypertension and has left ventricular hypertrophy by electrocardiography. His blood pressure remains elevated, we will need to try to get his blood pressure under better control over long run. Thank you for allowing me to participate in his care.
[2017-12-04] MEDS: LEVOFLOXACIN 750 MG TAB PO SCH (11:11)
[2017-12-04] MEDS ORDERED: FENTANYL CITRATE INJ 50 MCG/1 ML 2 ML VIAL ONE (13:06)
[2017-12-04] MEDS ORDERED: HEPARIN SOD (PORCINE) 1000 UNIT/ML 10 ML VIAL ONE (13:06)
[2017-12-04] MEDS ORDERED: MIDAZOLAM HCL 1 MG/ML 2ML VIAL ONE (13:06)
[2017-12-04] MEDS ORDERED: NITROGLYCERIN/D5W 100MCG/ML 20ML SYR ONE (13:07)
[2017-12-04] MEDS ORDERED: NiCARDipine HCL INJ 2.5 MG/ML 10 ML AMP ONE (13:07)
[2017-12-04] MEDS ORDERED: ADENOSINE IV SOLN 3 MG/ML 20 ML VIAL ONE (13:56)
--- NOTE | 2017-12-04 14:22 | Post Sedation Assessment ---
Post Sedation Assessment General Date of Sedation Dec 04, 2017. Vital Signs: Vital Signs Past 12 Hours Date Time Temp Pulse Resp B/P (MAP) Pulse Ox O2 Delivery O2 Flow Rate FiO2 12/04/17 14:10 76 16 136/80 (98) 96 Room Air 12/04/17 12:00 97 Room Air 12/04/17 11:53 36.5 56 20 121/77 (92) 97 12/04/17 08:00 96 Room Air 12/04/17 07:27 36.7 60 16 145/92 (109) 96 Room Air 12/04/17 04:48 36.6 54 18 161/101 (121) 97 Room Air 12/04/17 04:00 Room Air 2.0 Post Procedure Recovery Score Activity: (2) Moves 4 extremities * Respiration: (2) Deep breath/cough Circulation: (2) +/-20% PreAnes Value Consciousness: (2) Fully Awake Oxygen Saturation: (2) > 92% On Room Air Post Anesthesia Score: 10 Discharge Sedation Level of Care: Fast Track Phase II Post Sedation Plan On clinical assessment, the patient appears to have tolerated the sedation without complications. Patient is recovering as anticipated. Patient will continue to be monitored by nursing and may be discharged when sedation discharge criteria are met per below protocol. Upon Completions of procedure and additional 15 minutes continue every 5 minute vital signs and the P.A.R. score; then discharge to a Phase I or Fast Track to Phase II per the following guidelines: * Discharge Patient to appropriate Phase II area if PAR is 8 or greater or return to pre- procedure baseline. The post - procedure orders will be as directed. * If PAR score is less than 8 or not return to pre-procedure baseline then patient will follow Phase I monitoring till PAR is reached for Phase II. The Phase I may be done in procedure room or may call to secure a Phase I area. * If naloxone or flumazenil are used for reversal, hold in Phase I for an additional 60 -120 minutes before discharge to Phase II. Please call the Sedation Physician to re-evaluate and complete post-note for discharge to Phase II area. Do NOT discharge from procedure sedation or Phase 1 until post- sedation evaluation note is complete by procedure /sedation MD Sedation Discharge Instructions to be given to the patient at discharge to home.
--- NOTE | 2017-12-04 14:22 | Pre Sedation Assessment ---
Pre Sedation Assessment General Date of Sedation: Dec 04, 2017. Vital Signs Past 12 Hours Date Time Temp Pulse Resp B/P (MAP) Pulse Ox O2 Delivery O2 Flow Rate FiO2 12/04/17 14:10 76 16 136/80 (98) 96 Room Air 12/04/17 12:00 97 Room Air 12/04/17 11:53 36.5 56 20 121/77 (92) 97 12/04/17 08:00 96 Room Air 12/04/17 07:27 36.7 60 16 145/92 (109) 96 Room Air 12/04/17 04:48 36.6 54 18 161/101 (121) 97 Room Air 12/04/17 04:00 Room Air 2.0 Review Cardiovascular: regular rate, rhythm, no edema Lungs: chest non-tender, lungs clear Pre-Sedation Airway Assessment Smoking Status: Current Every Day Smoker Hx of Sleep Apnea: No Short Thick Neck: No Thyro-mental Distance: > 3 Finger Breadths Oral Cavity: Dentures Mallampati Classification: Class II ASA Classification: Class III NPO Status Date of Last Intake of Fluids: Dec 04, 2017 Time of Last Intake of Fluids: 0800 Date of Last Intake of Solids: Dec 04, 2017 Time of Last Intake of Solids: 0800 Procedure Planning Contraindications for Sedation: None Current Medications Reviewed: Yes Notes The planned sedation has been discussed with the patient. Informed Consent was obtained. I have identified the patient, determined the appropriateness of sedation and have assessed the patient immediately prior to the procedure. All medicine(s) and interventions are by my order.
--- NOTE | 2017-12-04 14:36 | Cardiac Catheterization ---
Procedure Note Procedure Date Dec 04, 2017. Pre-Procedure Diagnosis Non STEMI AUC Score 7 Post-Procedure Diagnosis Moderate CAD, Normal Intracardiac Pressures Procedure(s) Performed Coronary Angiography, Left Heart Cath, Fractional Flow [place] [employer] Management Advisor Bogdan [employer](s) Chantel Estimated Blood Loss 10 Medication(s) Fentanyl, Heparin, Nitroglycerin Summary of Findings Indication: NSTEMI Access: 6Fr slender right radial artery Catheters: [place]; JL3.5 Findings: LM - Long, distal luminal irregularities LAD - Large caliber vessel, proximal luminal irregularities, 50% mid segment focal stenosis after 2nd diagonal - 1st and 2nd diagonals moderate caliber without significant disease Circumflex - Moderate caliber vessel; luminal irregularities; moderate caliber OM2 without significant disease RCA - Dominant, large caliber vessel with luminal irregularities. LVEDP - 7 -- FFR -- JL3.5 guide Straight FFR wire placed in distal LAD iFR 0.92 FFR 0.83 Wire removed. Post procedure angiography with no apparent complications. Arterial Closure: TR Band Summary: 1. Moderate non-obstructive single vessel coronary artery disease - 50% mid LAD after 2nd diagonal (FFR 0.83). 2. Normal intracardiac filling pressure Recommendations: LAD disease not cause of patient's rest pain. Continue blood pressure management and ASCVD risk factor management. Hemodynamics Rest Ao: 109/63/85 Final Ao: 117/60/82 LV: 105/7 Recommendations Medical therapy and/or Counseling Specimens None Radiation Exposure (mGy) 1726 Contrast (mls) 80ml Fluids (cc crystalloids) 75 Drains None Anesthesia Moderate Procedural Complication(s) None Disposition PCU ACC Data Cardiac Status Clinical evaluation leading to the procedure CAD Presntation: Non STEMI Anginal Classification: CCS IV Heart Failure: No, NYHA Class: CCS I Cardiogenic Shock w/in 24Hrs: No Cardiac Arrest w/in 24Hrs: No Imaging studies past 6 months: Yes Stress studies past 6 months: Yes Stress Echocardiogram: Yes - Negative Closure Device Percutaneous Entry Location: Radial Closure Device: Radial Band Recommendations: Medical therapy and/or Counseling Intraprocedure Events Significant Dissection: No Perforation: No
[2017-12-04] MEDS ORDERED: LPT40 PO (18:38)
[2017-12-04] MEDS ORDERED: NRV5 PO (18:38)
[2017-12-04] MEDS ORDERED: SPR25 PO (18:38)
[2017-12-04] MEDS ORDERED: LVQ750 PO (18:38)
[2017-12-04] MEDS ORDERED: ASPEC81 PO (18:38)
--- NOTE | 2017-12-04 18:51 | Discharge Instructions ---
Discharge Instructions Date of Service Dec 04, 2017. Admission Reason for Admission: Exertional Chest Pain Discharge Discharge Diagnosis / Problem: pneumonia Discharge Goals Goal(s): Diagnostic testing, Therapeutic intervention Activity Recommendations Activity Limitations: resume your previous activity . Instructions / Follow-Up Instructions / Follow-Up pneumonia -this will require a short course of antibiotics to get better -we'll finish out levaquin (levofloxacin) like you've been on in the hospital - for three more days - next dose tomorrow -levaquin works really well for pneumonias, and usually is well tolerated - if it upsets your stomach, take it with food; also very rare but better to prevent is that it can cause a potential of setting people up for tendonitis or even tendon rupture - so basically just try to take it easy over the next few weeks coronary artery disease -incidentally due to the chest pain we found an elevated cardiac enzyme called troponin -- this is what led to the heart cath, and the heart cath showed that you have a 50% blockage in one of your coronaries -the main treatment for this is preventing the blockage from getting worse, as well as reducing the probability of plaque rupture smoking -absolutely critical is to stop smoking - nothing accelerates vascular disease quite like smoking. often a "have to" is more powerful than a "should" or " want to" in terms of quitting. if you're running into trouble, talk w Dr Gonzalez about chantix or wellbutrin as an additional aid atorvastatin -lipitor is hugely protective of coronaries - both by lowering your cholesterol to prevent more plaque from getting put into the artery wall and (even more critical) by reducing the chances of the plaque rupturing (whcih then allows clot to form which completely blocks the artery) -lipitor is usually really well tolerated - there is a small chance of muscle aches as we discussed, and dr gonzalez will follow liver enzymes from time to time to be safe, but as we discussed it's highly unlikely to see any problems from this aspirin -a "mild blood thinner" in the class of medications called antiplatelets, aspirin works to prevent a thick clot from forming in the coronary should the plaque rupture at all. at 81mg dosing it's usually really well tolerated. it can cause a little bit of easier bruising or nosebleeds, but usually it's rare for serious bleeding to occur. over a long time of use it can increase risk for stomach ulcers. overall though the protective benefit far outweighs the risk blood pressure control -a few lab tests to look for hormonal reasons for your blood pressure to be so high are still pending (renin and aldosterone) and we've increased medications some to help with better blood pressure control: amlodipine -this has been increased from 5mg once a day to 5mg twice a day spironolactone - this blocks the effect of hormones like aldosterone that can increase blood pressure. it does require periodic labwork because actually it can make potassium levels rise - Dr Gonzalez should check labs on this in the next 1-2 weeks ([facility]) it's also quite possible that some of the elevations in your blood pressure were just from the stress of being sick and being a patient in the hospital Current Hospital Diet Patient's current hospital diet: AHA Diet (Heart Healthy) Discharge Diet Recommended Diet: AHA Diet (Heart Healthy) Pending Studies Studies pending at discharge: yes List of pending studies: renin and aldosterone levels Laboratory Results Hemoglobin A1c Test 12/02/17 08:30 Range/Units Estimated Average Glucose 117 mg/dl Hemoglobin A1c 5.7 H 4.5-5.6 % Lipid Panel Test 12/02/17 08:30 Range/Units Triglycerides Level 76 0-150 mg/dl Cholesterol Level 163 0-200 mg/dl HDL Cholesterol 31 mg/dl Cholesterol/HDL Ratio 5.3 LDL Cholesterol, Calculated 117 mg/dl Medical Emergencies . Who to Call and When: Medical Emergencies: If at any time you feel your situation is an emergency, please call 911 immediately. . Non-Emergent Contact Non-Emergency issues call your: Primary Care Provider (Dr Gonzalez this coming week) . . "Provider Documentation" section prepared by Suraj Yang. . VTE Core Measure Inpt VTE Proph given/why not?: Enoxaparin (Lovenox)SQ, T.E.Vivi. Stockings, SCD's
--- NOTE | 2017-12-04 20:59 | Discharge Summary ---
Discharge Summary Date of Service Dec 04, 2017. Discharge Summary Admission Date: Dec 03, 2017 at 17:18 Discharge Date: Dec 04, 2017 Discharge Disposition: Home Principal Diagnosis: pneumonia, elevated troponin Procedures: renin and aldosterone levels sent and are pending Procedure Note Procedure Date Dec 04, 2017. Pre-Procedure Diagnosis Non STEMI AUC Score 7 Post-Procedure Diagnosis Moderate CAD, Normal Intracardiac Pressures Procedure(s) Performed Coronary Angiography, Left Heart Cath, Fractional Flow [place] Product Sales Engineer Bogdan Lithographic Stripper(s) Chantel Estimated Blood Loss 10 Medication(s) Fentanyl, Heparin, Nitroglycerin Summary of Findings Indication: NSTEMI Access: 6Fr slender right radial artery Catheters: [place]; JL3.5 Findings: LM - Long, distal luminal irregularities LAD - Large caliber vessel, proximal luminal irregularities, 50% mid segment focal stenosis after 2nd diagonal - 1st and 2nd diagonals moderate caliber without significant disease Circumflex - Moderate caliber vessel; luminal irregularities; moderate caliber OM2 without significant disease RCA - Dominant, large caliber vessel with luminal irregularities. LVEDP - 7 -- FFR -- JL3.5 guide Straight FFR wire placed in distal LAD iFR 0.92 FFR 0.83 Wire removed. Post procedure angiography with no apparent complications. Arterial Closure: TR Band Summary: 1. Moderate non-obstructive single vessel coronary artery disease - 50% mid LAD after 2nd diagonal (FFR 0.83). 2. Normal intracardiac filling pressure Recommendations: LAD disease not cause of patient's rest pain. Continue blood pressure management and ASCVD risk factor management. Hemodynamics Rest Ao: 109/63/85 Final Ao: 117/60/82 LV: 105/7 Recommendations Medical therapy and/or Counseling Specimens None Radiation Exposure (mGy) 1726 Contrast (mls) 80ml Fluids (cc crystalloids) 75 Drains None Anesthesia Moderate Procedural Complication(s) None Disposition PCU ACC Data Cardiac Status Clinical evaluation leading to the procedure CAD Presntation: Non STEMI Anginal Classification: CCS IV Heart Failure: No, NYHA Class: CCS I Cardiogenic Shock w/in 24Hrs: No Cardiac Arrest w/in 24Hrs: No Imaging studies past 6 months: Yes Stress studies past 6 months: Yes Stress Echocardiogram: Yes - Negative Closure Device Percutaneous Entry Location: Radial Closure Device: Radial Band Recommendations: Medical therapy and/or Counseling Intraprocedure Events Significant Dissection: No Perforation: No Interpretation Summary * Name: RADHIKA DEE Study Date: 12/02/2017 09:28 AM BP: 145/87 mmHg * Patient Location: .MED\S\N280\S\2 HR: 55 * : 1960 (M/d/yyyy) Gender: Male Height: 68 in * Age: 57 yrs Ethnicity: [place] Weight: 201 lb * Ordering Physician: Yanet Maria * Referring Physician: Yady Doctor, Assigned * Performed By: Sofia Pablo RDCS * * Reason For Study: Chest pain * BSA: 2.0 m2 * -- Conclusions -- * 1. Negative exercise stress echo for ischemia at 85% MPHR. * 2. Negative stress ECG for ischemia. Occasional PVCs in recovery. * 3. Average functional capacity for age. Exercised 9:00 min, acheiving 10.1 METS. * 4. Non-limiting mild chest dullness with exercise. Hypertensive response to exercise (Peak BP 231/98). * 5. Low risk Flowers Treadmill Score of 5. * 6. Normal biventricular size and function. LVEF 55-60%. Borderline concentric LVH. Mild mitral regurgitation. Grade II dysfunction. * 7. No prior studies for comparison. Procedure Details * ECHOEX, CPT #09110 * ECHO DOPPLER, CPT #[id number] * ECHO COLOR FLOW, CPT #[id number] Left Ventricle * The left ventricle is grossly normal size. * There is borderline concentric left ventricular hypertrophy. * Ejection Fraction = 55-60%. * No regional wall motion abnormalities noted. Right Ventricle * The right ventricle is grossly normal size. * The right ventricular systolic function is normal as assessed by tricuspid annular plane systolic excursion (TAPSE) (normal >1.5 cm). Atria * The left atrium is severely dilated. * The right atrium is mildly dilated. * No ASD detected; PFO is not assessed. Mitral Valve * The mitral valve is grossly normal. * There is no mitral valve stenosis. * There is mild mitral regurgitation. Tricuspid Valve * The tricuspid valve anatomy is normal. * There is no tricuspid stenosis. * There is trace tricuspid regurgitation. Aortic Valve * The aortic valve opens well. * No hemodynamically significant valvular aortic stenosis. * There is no significant aortic regurgitation. Pulmonic Valve * The pulmonary valve is inadequately visualized, but the Doppler data is adequate for interpretation. * Trace pulmonic valvular regurgitation. Great Vessels * The aortic root and proximal ascending aorta are normal sized. Pericardium * There is no pericardial effusion. Stress Parameters * Normal baseline electrocardiogram. * Arrhythmia induced during stress: occasional PVC's. * Arrhythmia noted in recovery: occasional PVC's. * Rest heart rate was '55' BPM. * Rest blood pressure was '145/87' * Maximum heart rate achieved was 141 bpm. * Maximum heart rate was 85 % of maximum age-predicted heart rate. * Maximum blood pressure was '231/98' * Total exercise time was '9:01' * Maximum exercise MET level achieved was '10.10' METS * Maximum treadmill speed was '3.30' miles per hour. * Maximum treadmill elevation was '14.00'% grade. * Exercise was terminated due to 'achieving target heart rate' Left Ventricular Findings with Stress * The study was technically good with many images being of high quality. Left Ventricular Diastolic Function * Diastolic dysfunction, Grade II (pseudonormalization pattern). MMode 2D Measurements and Calculations [~ rep ct add3]] CHEST 2 VIEWS ROUTINE CLINICAL HISTORY: abnormal chest CT; eval for developing pneumonia pneumonia COMPARISON STUDY: 12/01/2017 FINDINGS: Early developing parenchymal infiltrative process right base. Lungs otherwise appear clear. Mild stable cardiomegaly. IMPRESSION: Minimal developing parenchymal infiltrate right base The above report was generated using voice recognition software. It may contain grammatical, syntax or spelling errors. Electronically signed by: Nils Randolph M.D. [~ rep ct add3]] DUPLEX RENAL ARTERY CLINICAL HISTORY: malignant HTN hypertension TECHNIQUE: Arterial Doppler COMPARISON STUDY: None FINDINGS: Velocities and resistive indices are considered unremarkable. No evidence for significant stenotic process. No abnormal impedance characteristics. IMPRESSION: No evidence for significant renal arterial stenosis. The above report was generated using voice recognition software. It may contain grammatical, syntax or spelling errors. Electronically signed by: Nils Randolph M.D. 12/04/2017 7:03 AM (CHEST FOR PE) ANGIO WITH CLINICAL HISTORY: 56 years-old Male presenting with ^atypical chest pain , r/o pe. TECHNIQUE: Multidetector CT angiography of the chest was performed after administration of intravenous contrast. 3-D volumetric and/or maximum intensity projection (MIP) images were subsequently reconstructed for review. IV contrast: 104 mL of Optiray 320. A dose lowering technique was used consistent with the principles of ALARA (as low as reasonably achievable). COMPARISON: Chest x-ray performed earlier the same day. CT DOSE (mGy.cm): The estimated cumulative dose is 582.05 mGy.cm. FINDINGS: Churn Operator Margarine topogram: Cardiomegaly. Pulmonary vasculature: The study is adequate for assessment of the pulmonary vascular tree. No filling defect within the pulmonary arteries to suggest embolus. Main pulmonary artery is not enlarged. No flattening of the interventricular septum. No intracardiac filling defect. No reflux of contrast into the hepatic veins. Remaining chest: On soft tissue windows, normal thyroid and thoracic inlet. No axillary, supraclavicular, hilar, or mediastinal lymphadenopathy. Normal aorta. Multichamber enlargement of the heart. Coronary artery calcification. No pericardial or pleural effusion. Upper abdomen normal. On lung windows, minimal dependent changes likely atelectasis. No other focal nodule or infiltrate. Layering debris in the right mainstem bronchus. Bronchial wall thickening in the right lower lobe. On bone windows, degenerative changes of the spine. IMPRESSION: 1. No evidence of pulmonary embolus. 2. Layering debris in the right mainstem bronchus with bronchial wall thickening in the right lower lobe suggests aspiration. No evidence of pneumonitis at this time. Electronically signed by: Fahad Luciano M.D. 12/01/2017 9:10 PM Hemoglobin A1c Test 12/02/17 08:30 Range/Units Estimated Average Glucose 117 mg/dl Hemoglobin A1c 5.7 H 4.5-5.6 % Lipid Panel Test 12/02/17 08:30 Range/Units Triglycerides Level 76 0-150 mg/dl Cholesterol Level 163 0-200 mg/dl HDL Cholesterol 31 mg/dl Cholesterol/HDL Ratio 5.3 LDL Cholesterol, Calculated 117 mg/dl Last Resulted CBC 12/02/17 08:30 Last Resulted BMP 12/04/17 05:57 Item Value Date Time Erythrocyte Sedimentation Rate 69 mm/hr H 12/02/17 0830 Thyroid Stimulating Hormone (TSH) 4.960 uIu/ml H 12/04/17 0557 C-Reactive Protein 6.95 mg/dl H 12/04/17 0557 D-Dimer 710 ug/L FEU *H 12/01/17 1630 Hepatitis C Antibody NEG 12/02/17 0830 Influenza Type A Antigen Neg for Influ A 12/02/17 1520 Influenza Type B Antigen Neg for Influ B 12/02/17 1520 Consultations: cardiology Medication Reconciliation New Medications: Amlodipine Besylate (Amlodipine Besylate) 5 Mg Tab 5 MG PO BID, #60 TAB Aspirin (Aspirin EC Low Dose) 81 Mg Ectab 81 MG PO QAM, #30 TAB Atorvastatin (Lipitor) 40 Mg Tab 40 MG PO QAM, #30 TAB Levofloxacin (Levofloxacin) 750 Mg Tab 750 MG PO DAILY@11, #3 TAB Spironolactone (Spironolactone) 25 Mg Tab 50 MG PO QAM, #30 TAB Continued Medications: Clonidine Hcl (Catapres) 0.3 Mg Tab 0.3 MG PO BID, TAB Lisinopril (Prinivil) 20 Mg Tab 20 MG PO QPM, TAB Potassium Chloride (K-Tabs) 10 Meq Tab 10 MEQ PO BID Discontinued Medications: Amlodipine (Norvasc) 5 Mg Tab 5 MG PO QPM, TAB Discharge Exam Physical Exam: General Appearance: no apparent distress Eyes: EOMI ENT: hearing grossly normal Neck: trachea midline Respiratory/Chest: no respiratory distress, no accessory muscle use Extremities: normal inspection Neurologic/Psychiatric: bump grader operator II-XII nml as tested Skin: normal color, warm/dry Hospital Course admitted with chest pain and markedly elevated HTN - incidentally found to have elevated troponin, in the end CP and most sx were likley attributable to developing pneumonia, but cardiac w/u yielded 50% stenosis as above CAD -risk reduction, med management -asa, statin, ACEi, spironolactone and amlodipine for now since helped w BP but consider transition or addition of beta osmin -smoke cessation -lifestyle change mostly reducing sugar intake CAP -mild but likely was actually the root cause of sx -finish levaquin, stable for home uncontrolled HTN -secondary w/u negative, except renin and aldosterone levels still pending -home on above regimen -BMP next week tobacco abuse -cessation discussed at length elevated troponin -unclear cause - as above CAD likely DID NOT cause demand ischemia -stable Total Time Spent: Greater than 30 minutes This includes examination of the patient, discharge planning, medication reconciliation, and communication with other providers. Discharge Instructions Please refer to the electronic Patient Visit Report (Discharge Instructions) for additional information. Follow-Up dr gonzalez next week Additional Copies To Gregorio Gonzalez M.D.
[2017-12-05] MEDS ORDERED: ATORVASTATIN 40 MG TAB PO SCH (09:00)
== END 2017-12-04 19:06 | disposition home or self-care (01) | DRG 194 ==
LOC: C.EDB 15:41 → C.MED 20:04 → ENRESERV 20:19 → OBSVTOIN 12-03 17:18 → ENRESERV 12-04 13:18 → C.2E 12-04 14:29
PROVIDERS: ADMIT Internal Medicine; ATTEND Family Medicine
PROC: B211YZZ Fluoroscopy of Multiple Coronary Arteries using Other Contrast (ICD-10-PCS; principal; 2017-12-04 11:44)
PROC: 4A023N7 Measurement of Cardiac Sampling and Pressure, Left Heart, Percutaneous Approach (ICD-10-PCS; principal; 2017-12-04 11:44)
DX: J18.9 Pneumonia, unspecified organism (principal); I24.8 Other forms of acute ischemic heart disease; I16.0 Hypertensive urgency; I25.10 Atherosclerotic heart disease of native coronary artery without angina pectoris; E87.6 Hypokalemia; R79.1 Abnormal coagulation profile; I10 Essential (primary) hypertension; F17.200 Nicotine dependence, unspecified, uncomplicated; Z79.899 Other long term (current) drug therapy; Z82.49 Family history of ischemic heart disease and other diseases of the circulatory system; Z83.49 Family history of other endocrine, nutritional and metabolic diseases; Z80.6 Family history of leukemia

== ENCOUNTER 2024-09-20 12:03 | Inpatient (IN) ==
[2024-09-20 12:43] LABS: Basophils # (auto) 0.03 K/uL (0.00-0.20); Basophils % (auto) 0.5 %; Eosinophils # (auto) 0.09 K/uL (0.00-0.50); Eosinophils % (auto) 1.6 %; Hematocrit (blood only) 42.2 % (42.0-52.0); Hemoglobin 14.6 g/dl (14.0-18.0); Immature Granulocytes # (auto) 0.02 K/uL (0.01-0.20); Immature Granulocytes % (auto) 0.4 %; Lymphocytes # (auto) 1.15 K/uL (1.20-3.40); Lymphocytes % (auto) 20.9 %; Mean Corpuscular Hemoglobin 32.2 pg (25.0-34.0); Mean Corpuscular Hgb Conc 34.6 g/dL (32.0-36.0); Mean Platelet Volume 9.6 fL (9.4-12.4); Monocytes # (auto) 0.63 K/uL (0.11-0.59); Monocytes % (auto) 11.4 %; Neutrophils # (auto) 3.59 K/uL (1.40-6.50); Neutrophils % (auto) 65.2 %; Platelet Count 177 K/uL (130-400); RDW Coefficient of Variation 13.6 % (11.5-14.5); RDW Standard Deviation 46.8 fL (36.4-46.3); Red Blood Count 4.54 M/uL (4.70-6.10); White Blood Count 5.51 K/ul (4.8-10.8)
[2024-09-20 13:07] LABS: Albumin Globulin Ratio 1.2 (0.9-2); Albumin Level 3.8 gm/dl (3.4-5.0); BUN Creatinine Ratio 10.8 (10-20); Bilirubin,Total 0.3 mg/dl (0.2-1.0); Calcium 9.2 mg/dl (8.6-10.3); Creatinine Clr Calc Pharmacy 91.9 ml/min; Globulin 3.1 gm/dl (2.5-4.0); Potassium 4.6 mmol/L (3.5-5.1); Total Protein 6.9 gm/dl (6.0-8.3)
--- NOTE | 2024-09-20 14:00 | Emergency Department Note ---
Impression & Plan Incarcerated umbilical hernia ED Provider Note CHIEF COMPLAINT: Abdominal pain HISTORY OF PRESENT ILLNESS: This 63-year-old male patient presents to the emergency department via private vehicle with his for evaluation of centralized abdominal pain. The patient reports a history of an abdominal hernia, which he has had over the course of his life. He reports pain and bulging at the umbilicus, that started on Thursday. He denies fever, nausea, or vomiting. He reports he was seen by [facility], and informed to come to the emergency department for evaluation. REVIEW OF SYSTEMS: A review of systems was performed with positives and pertinent negatives listed in the history of present illness. All other systems were reviewed and are negative. ALLERGIES: See below MEDICATIONS: See below PMH: See below PHYSICAL EXAM: VITALS: Vitals are noted on the nurse's note and reviewed by myself. Vital signs stable. GENERAL: 63-year-old male, in no acute distress, nondiaphoretic, well-developed well-nourished. SKIN: The skin was without rashes, erythema, edema, or bruising. HEAD: Normocephalic atraumatic. HEART: Regular rate and rhythm without murmurs gallops or rubs. LUNGS: Clear to auscultation bilaterally without wheezes, rales or rhonchi. No retractions or accessory muscle use. ABDOMEN: Positive bowel sounds x 4. Firm abdomen, with periumbilical erythema, and bulging present as well as a large area of bulging present just superior to the umbilicus. TTP over mentioned areas, with warmth present. MUSCULOSKELETAL: No muscle atrophy, erythema, or edema noted. Normal gait. Strength 5/5 throughout. NEURO: Patient was alert and oriented to person place and time. No focal neurological deficits. MEDICAL DECISION MAKING: The patient is a pleasant 63-year-old male who arrives to the emergency department with his for evaluation of the above-stated complaint. The patient was assessed at a time of high acuity, and high volume in triage room 3. Upon assessment I do believe the patient has likely an incarcerated hernia. A saline lock was established, CBC, CMP, lipase, urinalysis were obtained. Lab work is all reassuring, urinalysis negative for infection. CT imaging of the abdomen and pelvis with IV contrast was obtained which shows a small fat filled umbilical hernia with mild inflammatory stranding, diastases of 1.2 cm which is similar to prior, with an additional supraumbilical midline abdominal wall hernia with mild inflammation, opening of 2.5 cm. Contact was made with Dr. Olsen from general surgery who agreed to see the patient. Dr. Olsen agreed the patient did require surgical intervention, however the patient is on Eliquis. The patient was then admitted to the [facility] group, as he is on a blood thinner and will require discontinuation of Eliquis prior to surgical intervention. Please refer to Dr. Olsen's documentation, as well as the [facility] physician for further patient workup and care. DIFFERENTIAL DIAGNOSIS: Appendicitis, testicular torsion, infections, diverticulitis, UTI, obstruction, mesenteric ischemia, aortic pathology, inflammatory bowel disease, renal colic, PUD, pancreatitis, biliary pathology, hernia, volvulus, constipation, as well as other pathologies. The chart was completed utilizing [employer] Speech voice recognition software. Grammatical errors, random word insertions, pronoun errors, and incomplete sentences are an occasional consequence of this system due to software limitations, ambient noise, and hardware issues. Any formal questions or concerns about the content, text, or information contained within the body of this dictation should be directly addressed to the physician for clarification. 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 Impression: No evidence of adrenal hyperplasia. 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 CAD (coronary artery disease) 2018- 1 stent Hx of malignant melanoma of skin Approximately 2014 Atrial fibrillation History of COVID-19 2020- resolved Surgical History H/O hernia repair (09/22/24) Laparoscopic Umbilical (2cm) and Ventral Hernia(4cm) Repairs with Mesh(Not Applicable) - Darrius Olsen, Hx of heart artery stent H/O wrist surgery S/P wisdom tooth extraction Hx of melanoma excision scalp Hx of cardiac catheterization 2017 [place]- 1 stent Hx of colonoscopy History of lumbar surgery x2 (20 years ago) Family History Brother Cancer Other No family history of adverse response to anesthesia Social History Smoking Status: Current every day smoker Tobacco Type: Cigarettes Cigarettes Per Day: 1 PPD; Second Hand Exposure: No; Do You Dip or Chew Tobacco: No; Hx Alcohol Use: Yes Alcohol type: beer Hx Substance Use: Yes Preferred Language: [place]iboutian Communication Ability: Effective Customer Support Representative Required: No Beliefs That Will Affect Care: None marital status: Current Living Situation: Spouse How many Children do You have: 2 Feels Safe at Home: Yes during the past year weight has: remained stable Assistive Devices: None Allergies Allergies Allergy/AdvReac Type Severity Reaction Status Date / Time No Known Allergies Allergy Verified 09/20/24 17:20 Home Meds Home Medications Medication Instructions Recorded Confirmed aspirin 81 mg tablet,delayed 81 mg PO DAILY 04/28/23 09/20/24 release (Adult Low Dose Aspirin) apixaban 5 mg tablet (Eliquis) 5 mg PO BID 08/14/23 09/20/24 carvedilol 3.125 mg tablet 3.125 mg PO BID 02/16/24 09/20/24 eplerenone 50 mg tablet 50 mg PO BID 02/16/24 09/20/24 hydralazine 100 mg tablet 100 mg PO TID 06/14/24 09/20/24 sacubitril 97 mg-valsartan 103 mg 1 tab PO BID 06/14/24 09/20/24 tablet (Entresto) potassium chloride 20 mEq 20 meq PO BID 07/22/24 09/20/24 tablet,extended release(part/cryst) Previous Rx's Medication Instructions Recorded amlodipine 5 mg tablet 5 mg PO BID #60 tabs 06/14/24 oxycodone 5 mg tablet 5 - 10 mg (1 - 2 x 5 mg) PO 09/23/24 .[id number] PRN pain, for initial therapy, max 6 tabs per day #12 tabs Results & Data (ED) Vital Signs Vital Signs - 24 hr 09/20/24 12:06 Temperature 36.8 C Temperature Source Temporal Artery Scan Pulse Rate 51 L Respiratory Rate 20 Respiratory Effort / Characteristics Non-Labored Spontaneous Respiratory Depth Normal Respiratory Pattern Regular Blood Pressure 160/82 H Blood Pressure Mean 108 Blood Pressure Position Sitting Pulse Oximetry 98 Oxygen Delivery Method Room Air Sepsis Recent Fever Within 48 Hours No Sepsis New/Unexplained Change in Mental Status No Sepsis Action Taken by Nursing No Action Required Home Medications Current Medication List: was personally reviewed by me Laboratory Data 09/23/24 05:22 09/23/24 05:22 Lab Results 09/20/24 Range/Units 12:27 WBC 5.51 (4.8-10.8) K/ul RBC 4.54 L (4.70-6.10) M/uL Hgb 14.6 (14.0-18.0) g/dl Hct 42.2 (42.0-52.0) % MCV 93.0 (80.0-100.0) fL MCH 32.2 (25.0-34.0) pg MCHC 34.6 (32.0-36.0) g/dL RDW Std Deviation 46.8 H (36.4-46.3) fL RDW Coeff of Paco 13.6 (11.5-14.5) % Plt Count 177 (130-400) K/uL MPV 9.6 (9.4-12.4) fL Immature Gran % (Auto) 0.4 % Neut % (Auto) 65.2 % Lymph % (Auto) 20.9 % [place] % (Auto) 11.4 % Eos % (Auto) 1.6 % Baso % (Auto) 0.5 % Neut # (Auto) 3.59 (1.40-6.50) K/uL Lymph # (Auto) 1.15 L (1.20-3.40) K/uL [place] # (Auto) 0.63 H (0.11-0.59) K/uL Eos # (Auto) 0.09 (0.00-0.50) K/uL Baso # (Auto) 0.03 (0.00-0.20) K/uL Immature Gran # (Auto) 0.02 (0.01-0.20) K/uL Sodium 137 (136-145) mmol/L Potassium 4.6 (3.5-5.1) mmol/L Chloride 107 (98-107) mmol/L Carbon Dioxide 25 (21-32) mmol/L Anion Gap 5 (3-11) BUN 10 (6-23) mg/dl Creatinine 0.93 (0.6-1.4) mg/dl Est Cr Clr Drug Dosing 91.9 ml/min eGFR 92.84 BUN/Creatinine Ratio 10.8 (10-20) Glucose 103 H (70-99(Fasting)) mg/dl Calcium 9.2 (8.6-10.3) mg/dl Total Bilirubin 0.3 (0.2-1.0) mg/dl AST 14 (13-39) U/L ALT 14 (7-52) U/L Alkaline Phosphatase 67 (34-104) U/L Total Protein 6.9 (6.0-8.3) gm/dl Albumin 3.8 (3.4-5.0) gm/dl Globulin 3.1 (2.5-4.0) gm/dl Albumin/Globulin Ratio 1.2 (0.9-2) Lipase 44 (11-82) U/L Administered Medications Discontinued Medications Acetaminophen (Acetaminophen 325 Mg Tab) 650 mg PO Q4H PRN PRN Reason: Pain or Fever Stop: 10/20/24 20:45 Last Admin: 09/21/24 23:40 Dose: 650 mg Documented By: Admin: 09/21/24 15:08 Dose: 650 mg Documented By: Admin: 09/21/24 06:11 Dose: 650 mg Documented By: NGUYEN Amlodipine Besylate (Amlodipine Besylate 5 Mg Tab) 5 mg PO BID JORGE LUIS Stop: 10/20/24 20:59 Last Admin: 09/23/24 07:46 Dose: 5 mg Documented By: Admin: 09/22/24 21:15 Dose: 5 mg Documented By: Admin: 09/22/24 07:32 Dose: 5 mg Documented By: Admin: 09/21/24 20:54 Dose: 5 mg Documented By: Admin: 09/21/24 09:00 Dose: 5 mg Documented By: Admin: 09/20/24 22:39 Dose: Not Given Documented By: KENNETH Aspirin (Aspirin 81 Mg Ectab) 81 mg PO DAILY [facility] Stop: 10/21/24 08:59 Last Admin: 09/21/24 08:59 Dose: 81 mg Documented By: CC Bupivacaine HCl/Epinephrine Bitart (Bupivacaine/Epinephrine 0.5% Mpf 1:200,000 30 Ml Vial) Confirm Administered Dose 30 ml .ROUTE .STK-MED ONE Stop: 09/22/24 11:20 Last Admin: 09/22/24 13:58 Dose: 30 ml Documented By: CANDACE Carvedilol (Carvedilol 3.125 Mg Tab) 3.125 mg PO BIDM [facility] Stop: 10/20/24 19:44 Last Admin: 09/23/24 07:45 Dose: 3.125 mg Documented By: Admin: 09/22/24 17:46 Dose: 3.125 mg Documented By: Admin: 09/22/24 07:32 Dose: 3.125 mg Documented By: Admin: 09/21/24 17:24 Dose: 3.125 mg Documented By: Admin: 09/21/24 07:44 Dose: 3.125 mg Documented By: Admin: 09/20/24 22:10 Dose: Not Given Documented By: MBL Eplerenone (Eplerenone 50 Mg (Patient's Own Med)) 1 each PO BID [facility] Stop: 10/21/24 20:59 Last Admin: 09/23/24 07:47 Dose: 1 each Documented By: Admin: 09/22/24 21:15 Dose: 1 each Documented By: Admin: 09/22/24 07:33 Dose: 1 each Documented By: Admin: 09/21/24 20:53 Dose: 1 each Documented By: MLM Fentanyl Citrate (Fentanyl Citrate Pf 100 Mcg/2 Ml Vial) 25 mcg IV Q5M PRN PRN Reason: PACU Use Only-Pain Stop: 09/22/24 20:48 Last Admin: 09/22/24 14:45 Dose: 25 mcg Documented By: Admin: 09/22/24 14:40 Dose: 25 mcg Documented By: Admin: 09/22/24 14:35 Dose: 25 mcg Documented By: Admin: 09/22/24 14:30 Dose: 25 mcg Documented By: SED Hydralazine HCl (Hydralazine Tab 50 Mg Tab) 100 mg PO TID JORGE LUIS Stop: 10/20/24 20:59 Last Admin: 09/23/24 07:46 Dose: 100 mg Documented By: Admin: 09/22/24 21:16 Dose: 100 mg Documented By: Admin: 09/22/24 15:54 Dose: 100 mg Documented By: Admin: 09/22/24 07:33 Dose: 100 mg Documented By: Admin: 09/21/24 20:55 Dose: 100 mg Documented By: MLLoren Admin: 09/21/24 14:03 Dose: 100 mg Documented By: Admin: 09/21/24 09:00 Dose: 100 mg Documented By: Admin: 09/20/24 22:39 Dose: Not Given Documented By: KENNETH Hydromorphone HCl (Hydromorphone Inj 1 Mg/Ml Syringe) 0.25 mg IV Q5M PRN PRN Reason: PACU Use Only-Pain Stop: 09/22/24 20:49 Last Admin: 09/22/24 15:10 Dose: 0.25 mg Documented By: Admin: 09/22/24 15:05 Dose: 0.25 mg Documented By: Admin: 09/22/24 14:55 Dose: 0.25 mg Documented By: Admin: 09/22/24 14:50 Dose: 0.25 mg Documented By: SED Ampicillin Sodium/Sulbactam Sodium (Unasyn) 3,000 mg in 100 mls @ 200 mls/hr IV Q6 JORGE LUIS Stop: 09/30/24 23:29 Last Infusion: 09/23/24 06:13 Dose: Infused Documented By: Admin: 09/23/24 05:43 Dose: 200 mls/hr Documented By: Infusion: 09/23/24 01:09 Dose: Infused Documented By: Admin: 09/23/24 00:39 Dose: 200 mls/hr Documented By: Infusion: 09/22/24 18:23 Dose: Infused Documented By: Admin: 09/22/24 17:46 Dose: 200 mls/hr Documented By: Infusion: 09/22/24 12:38 Dose: Infused Documented By: Admin: 09/22/24 12:05 Dose: 200 mls/hr Documented By: Infusion: 09/22/24 05:31 Dose: Infused Documented By: Admin: 09/22/24 04:55 Dose: 200 mls/hr Documented By: Infusion: 09/22/24 00:11 Dose: Infused Documented By: Admin: 09/21/24 23:38 Dose: 200 mls/hr Documented By: Infusion: 09/21/24 18:12 Dose: Infused Documented By: Admin: 09/21/24 17:39 Dose: 200 mls/hr Documented By: Infusion: 09/21/24 13:59 Dose: Infused Documented By: Admin: 09/21/24 13:11 Dose: 200 mls/hr Documented By: Infusion: 09/21/24 06:42 Dose: Infused Documented By: Admin: 09/21/24 06:08 Dose: 200 mls/hr Documented By: Infusion: 09/21/24 00:35 Dose: Infused Documented By: Admin: 09/20/24 23:59 Dose: 200 mls/hr Documented By: EMB Acetaminophen (Ofirmev) 1,000 mg in 100 mls @ 400 mls/hr IV NOW STA Stop: 09/20/24 17:30 Last Infusion: 09/20/24 17:58 Dose: Infused Documented By: Admin: 09/20/24 17:28 Dose: 400 mls/hr Documented By: GGG Ampicillin Sodium/Sulbactam Sodium (Unasyn) 3,000 mg in 100 mls @ 200 mls/hr IV NOW STA Stop: 09/20/24 17:55 Last Infusion: 09/20/24 18:15 Dose: Infused Documented By: Admin: 09/20/24 17:44 Dose: 200 mls/hr Documented By: GGG Parenteral Electrolytes (Plasma-Lyte A Ph 7.4) 1,000 mls @ 80 mls/hr IV .[id number] JORGE LUIS Stop: 09/21/24 18:44 Last Infusion: 09/21/24 08:35 Dose: Infused Documented By: Infusion: 09/21/24 06:42 Dose: 80 mls/hr Documented By: Infusion: 09/21/24 06:08 Dose: 0 mls/hr Documented By: Infusion: 09/21/24 00:35 Dose: 80 mls/hr Documented By: Infusion: 09/20/24 23:59 Dose: 0 mls/hr Documented By: Admin: 09/20/24 19:38 Dose: 80 mls/hr Documented By: MBL Sodium Chloride (Nss) 1,000 mls @ 80 mls/hr IV .[id number] [facility] Stop: 09/22/24 12:14 Last Infusion: 09/22/24 12:39 Dose: Infused Documented By: Admin: 09/21/24 23:38 Dose: 80 mls/hr Documented By: MLM Sodium Chloride (Nss) 1,000 mls @ 15 mls/hr IV .Q24H [facility] Stop: 09/23/24 12:14 Last Infusion: 09/22/24 17:52 Dose: Infused Documented By: [facility] Admin: 09/22/24 17:52 Dose: Not Given Documented By: [facility] Admin: 09/22/24 12:34 Dose: 15 mls/hr Documented By: FAISAL Ioversol (Optiray 320 100ml) 94 ml IV ONCE ONE Stop: 09/20/24 14:33 Last Admin: 09/20/24 14:32 Dose: 94 ml Documented By: TOÑO Vaughan (Remove Nicoderm Patch) 1 each N/A DAILY@0859 [facility] Stop: 10/21/24 08:58 Last Admin: 09/23/24 07:46 Dose: 1 each Documented By: [facility] Admin: 09/22/24 07:32 Dose: 1 each Documented By: [facility] Admin: 09/21/24 09:05 Dose: Not Given Documented By: CC Sabrinacellaneous (Order Awaiting Action: Eplerenone) 1 each N/A QS [facility] Stop: 10/21/24 00:00 Last Admin: 09/21/24 15:12 Dose: 1 each Documented By: TRAlan Admin: 09/21/24 11:19 Dose: Not Given Documented By: Admin: 09/21/24 02:45 Dose: Not Given Documented By: NGUYEN Nicotine (Nicotine 14 Mg/24 Hr Patch) 1 patch TD QAM [facility] Stop: 10/21/24 08:59 Last Admin: 09/23/24 07:45 Dose: 1 patch Documented By: Admin: 09/22/24 07:33 Dose: 1 patch Documented By: Admin: 09/21/24 08:58 Dose: 1 patch Documented By: BHARGAV Oxycodone HCl (Oxycodone Hcl Ir 5 Mg Tab (Immediate Release)) 10 mg PO Q4H PRN PRN Reason: Severe Pain (Scale 7, 8, 9,10) Stop: 10/06/24 15:50 Last Admin: 09/23/24 10:05 Dose: 10 mg Documented By: Admin: 09/23/24 04:24 Dose: 10 mg Documented By: Admin: 09/22/24 21:19 Dose: 10 mg Documented By: VINNIE Potassium Chloride (Potassium Chloride Crtab 20 Meq Tabcr) 20 meq PO BID [facility] Stop: 10/20/24 20:59 Last Admin: 09/23/24 07:45 Dose: 20 meq Documented By: Admin: 09/22/24 21:19 Dose: 20 meq Documented By: Admin: 09/22/24 07:35 Dose: 20 meq Documented By: Admin: 09/21/24 21:00 Dose: 20 meq Documented By: Admin: 09/21/24 09:00 Dose: 20 meq Documented By: Admin: 09/20/24 22:39 Dose: 20 meq Documented By: KENNETH Sacubitril/Valsartan (Valsartan/Sacubitril 103/97mg Tab) 1 tab PO BID [facility] Stop: 10/20/24 20:59 Last Admin: 09/23/24 07:46 Dose: 1 tab Documented By: Admin: 09/22/24 21:16 Dose: 1 tab Documented By: Admin: 09/22/24 07:33 Dose: 1 tab Documented By: Admin: 09/21/24 20:54 Dose: 1 tab Documented By: Admin: 09/21/24 09:00 Dose: 1 tab Documented By: Admin: 09/20/24 22:38 Dose: 1 tab Documented By: KENNETH Discharge Plan Visit Data Chief Complaint: Abdominal Pain Stated Complaint: STRANGULATED ENCARERATED HERNIA ED Provider: Tj Bo ED Midlevel Provider: Francoise Jennings Discharge Problem: Incarcerated umbilical hernia Patient Disposition: Admitted As Inpatient Discharge Instructions Interventions: ED Discharge Assessment Last Done: 09/21/24 14:00
[2024-09-20] MEDS: OPTIRAY 320 100ml IV ONE (14:32)
--- NOTE | 2024-09-20 15:19 | CT Scan Report ---
ABDOMEN AND PELVIS CT WITH IV CONTRAST CT DOSE: 1216.75 mGy.cm HISTORY: Acute generalized abdominal pain with possible abdominal wall hernia possible incarcerated hernia TECHNIQUE: Multiaxial CT images of the abdomen and pelvis were performed following the IV administrat ion of 94 cc of Optiray, A dose lowering technique was utilized adhering to the principles of ALARA. COMPARISON STUDY: CT abdomen 08/03/2023 FINDINGS: Mild cardiomegaly with coronary artery calcifications. Clear lung bases. No pneumatosis or pneumoperitoneum. Unremarkable spleen, pancreas and right adrenal gland. Nodular thickening of the le ft adrenal gland measures up to 1.4 cm, unchanged from prior and likely benign. Contracted gallbladde r. Unremarkable liver. Patent portal vein. No hydronephrosis. Renal cysts with unchanged 7 mm complex right renal cyst. 3 mm nonobstructing calc ulus of the inferior pole left kidney. Borderline enlarged prostate. Urinary bladder wall thickening with partial distention. Atherosclerosis of the aorta without aneurysm. Surgical clips of the prostat e. Mildly enlarged right inguinal chain lymph node measures 1.2 cm. This is nonspecific. No bowel obstruction or bowel wall thickening. Colonic diverticulosis. Moderate colonic fecal retenti on. Normal appendix. Small fat filled umbilical hernia with mild inflammatory stranding, diastases of 1.2 cm which is similar to prior. Additionally, there is a midline supraumbilical midline abdominal wall hernia on image 142 with mild inflammation, opening of 2.5 cm. This is also similar to prior. No acute fracture. Severe L4-L5 intervertebral disc space narrowing with circumferential disc osteophyt e complex. Avascular necrosis of the femoral heads. IMPRESSION: 1. No bowel obstruction or bowel wall thickening. 2. Unchanged appearance of the fat filled umbilical and suprapubic umbilical hernias with mild associ ated inflammatory stranding, similar in appearance to the study from 08/03/2023. No bowel involvement in the hernia sacs. 3. Nonobstructing left renal calculus. No hydronephrosis. 4. Colonic diverticulosis. 5. Avascular necrosis of the femoral heads. ACT 112: Negative or not required by law. The above report was generated using voice recognition software. It may contain grammatical, syntax o r spelling errors. Electronically signed by: Vito Linares M.D. 09/20/2024 3:18 PM
--- NOTE | 2024-09-20 16:24 | Surgery Consultation ---
Date of Consultation September 20, 2024 Assessment & Plan (1) Ventral hernia: (2) Incarcerated umbilical hernia: Patient with c/o abdominal pain at umbilical area with associated redness that started Thursday rating pain a 7/10 with decreasing appetite and unable to sleep. Has known ventral hernia, underwent a CT scan in ER showing concerns for a fat filled umbilical and suprapubic umbilical hernias with mild associated inflammatory stranding. On exam he appears uncomfortable but in no acute distress, VSS, no elevation in WBC count. Has obese abdomen with visible ventral hernia and small umbilical hernia. Patient is very tender to touch and I was unable to attempt reduction of umbilical hernia without causing significant distress. The umbilical hernia does have some surrounding erythema. Discussion with patient included admitting him to the hospitalist service, holding his Eliquis, providing pain control measures, and scheduling him for surgical intervention for hernia repair with a tentative date of this . The procedure could be in the form of a laparoscopic approach or an open repair, will discuss with senior product consultant surgeon Dr. Olsen. Keep NPO at [place] Thursday PRN IV analgesic Will discuss case with on-call surgeon and further recommendations will be forthcoming. History of Present Illness Reason for Consultation: incarcerated umbilical, ventral hernia Requesting Physician: Francoise Jennings PA-C History of Present Illness Patient is a pleasant 63 yo male with PMH afib , HTN, lymphadenopathy, hypera ldosteronism, adrenal nodule, ventral hernia , that presented to the [facility] ER with c/o abdominal pain at umbilical area with associated redness that started Thursday rating pain a 7/10 with decreasing appetite and unable to sleep. He states he was born with a ventral hernia which has not cause him any discomfort or issues. He denies cp, sob, nausea , vomiting , last BM Thursday. Took his Eliquis this AM, denies prior abdominal surgery. Allergies Allergy/AdvReac Type Severity Reaction Status Date / Time No Known Allergies Allergy Verified 08/10/24 16:39 Home Medications Medication Instructions Recorded Confirmed Type aspirin 81 mg tablet,delayed 81 mg PO DAILY 04/28/23 07/20/24 History release (Adult Low Dose Aspirin) atorvastatin 40 mg tablet 40 mg PO QAM 04/28/23 07/20/24 History apixaban 5 mg tablet (Eliquis) 5 mg PO BID 08/14/23 07/20/24 History carvedilol 3.125 mg tablet 3.125 mg PO BID 02/16/24 07/20/24 History eplerenone 50 mg tablet 50 mg PO DAILY 02/16/24 06/14/24 History amlodipine 5 mg tablet 5 mg PO BID #60 tabs 06/14/24 07/20/24 Rx hydralazine 100 mg tablet 100 mg PO TID 06/14/24 07/20/24 History sacubitril 97 mg-valsartan 103 mg 1 tab PO BID 06/14/24 07/20/24 History tablet (Entresto) cyclobenzaprine 10 mg tablet 10 mg PO HS 07/22/24 History potassium chloride 20 mEq 20 meq PO DAILY 07/22/24 History tablet,extended release(part/cryst) Patient History Medical History History of cardioversion Adrenal nodule Abdomen CT 08/03/23: Left renal nodule measuring 13 mm is unchanged from 2017 where it demonstrated 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 Impression: No evidence of adrenal hyperplasia. 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 CAD (coronary artery disease) 2018- 1 stent Hx of malignant melanoma of skin Approximately 2014 Atrial fibrillation History of COVID-19 2020- resolved Surgical History H/O wrist surgery S/P wisdom tooth extraction Hx of melanoma excision scalp Hx of cardiac catheterization 2018 [place]- 1 stent Hx of colonoscopy History of lumbar surgery x2 (20 years ago) Family History Brother Cancer Other No family history of adverse response to anesthesia Social History Smoking Status: Current every day smoker Tobacco Type: Cigarettes Cigarettes Per Day: 1 PPD; Second Hand Exposure: No; Do You Dip or Chew Tobacco: No; Hx Alcohol Use: Yes Alcohol type: beer Hx Substance Use: Yes Preferred Language: Georgian Communication Ability: Effective Apprentice Carpenter Required: No Beliefs That Will Affect Care: None marital status: Current Living Situation: Spouse How many Children do You have: 2 Feels Safe at Home: Yes during the past year weight has: remained stable Assistive Devices: Denture - Upper, Denture - Lower and Glasses Review of Systems Constitutional: + anorexia; no fever and no chills Eyes: + corrective lenses Respiratory: no dyspnea Cardiovascular: no chest pain Gastrointestinal: + abdominal pain; no nausea and no vomit ing Musculoskeletal: no muscle weakness Psychiatric: no confusion Physical Exam Constitutional: + obese and cooperative; + uncomfortable Respiratory: normal respiratory effort; no respiratory distress Gastrointestinal (Abdomen): Inspection/Auscultation: + visible herniation (ventral hernia and umbilical ) Percussion/Palpation: + abdomen tender and + guarding Musculoskeletal: no cyanosis or clubbing, extremities motor strength 5/5 Psychiatric: Orientation: alert and oriented x 3 Results & Data Vital Signs (Past 12 Hours) Vital Signs Temp Pulse Resp BP Pulse Ox O2 Del Method 09/20/24 12:06 98.2 F 51 L 20 160/82 H 98 Room Air Diagnostic Findings [place], [place] [phone] CT Scan Report Patient: RADHIKA DEE Admit Date: 09/20/24 MR#: [id number] Address1: [address] [place] [address] Acct ID:[id number] Address2: Date: 1960 [facility] Zip: [place] [address] Age: 63 Location: ED Sex: M Room/Bed: Att Phy: Diagnosis: STRANGULATED ENCARERATED HERNIA Jyothi Phy: PCP,NO Service Date: 09/20/24 Fam Phy: Interpreting Phy: Vito LinaresAdmit Phy: Ordering Phy: Francoise Jennings CRNP cc: ~ ABDOMEN AND PELVIS CT WITH IV CONTRAST CT DOSE: 1216.75 mGy.cm HISTORY: Acute generalized abdominal pain with possible abdominal wall hernia possible incarcerated hernia TECHNIQUE: Multiaxial CT images of the abdomen and pelvis were performed f ollowing the IV administration of 94 cc of Optiray, A dose lowering technique was utilized adhering to the principles of ALARA. COMPARISON STUDY: CT abdomen 08/03/2023 FINDINGS: Mild cardiomegaly with coronary artery calcifications. Clear lung bases. No pneumatosis or pneumoperitoneum. Unremarkable spleen, pancreas and right adrenal gland. Nodular thickening of the left adrenal gland measures up to 1.4 cm, unchanged from prior and likely benign. Contracted gallbladder. Unremarkable liver. Patent portal vein. No hydronephrosis. Renal cysts with unchanged 7 mm complex right renal cyst. 3 mm nonobstructing calculus of the inferior pole left kidney. Borderline enlarged prostate. Urinary bladder wall thickening with partial distention. Atherosclerosis of the aorta without aneurysm. Surgical clips of the prostate. Mildly enlarged right inguinal chain lymph node measures 1.2 cm. This is nonspecific. No bowel obstruction or bowel wall thickening. Colonic diverticulosis. Moderate colonic fecal retention. Normal appendix. Small fat filled umbilical hernia with mild inflammatory stranding, diastases of 1.2 cm which is similar to prior. Additionally, there is a midline supraumbilical midline abdominal wall hernia on image 142 with mild inflammation, opening of 2.5 cm. This is also similar to prior. No acute fracture. Severe L4-L5 intervertebral disc space narrowing with circumferential disc osteophyte complex. Avascular necrosis of the femoral heads. IMPRESSION: 1. No bowel obstruction or bowel wall thickening. 2. Unchanged appearance of the fat filled umbilical and suprapubic umbilical hernias with mild associated inflammatory stranding, similar in appearance to the study from 08/03/2023. No bowel involvement in the hernia sacs. 3. Nonobstructing left renal calculus. No hydronephrosis. 4. Colonic diverticulosis. 5. Avascular necrosis of the femoral heads. ACT 112: Negative or not required by law. The above report was generated using voice recognition software. It may contain grammatical, syntax or spelling errors. Electronically signed by: Vito Linares M.D. 09/20/2024 3:18 PM Dictated: 09/20/24 1507 Transcribed: 09/20/24 1507 Results CBC w Diff Results: RBC 4.54 M/uL (4.70-6.10) L 09/20/24 WBC 5.51 K/ul (4.8-10.8) 09/20/24 Hgb 14.6 g/dl (14.0-18.0) 09/20/24 Hct 42.2 % (42.0-52.0) 09/20/24 MCV 93.0 fL (80.0-100.0) 09/20/24 MCH 32.2 pg (25.0-34.0) 09/20/24 MCHC 34.6 g/dL (32.0-36.0) 09/20/24 RDW Standard Deviation 46.8 fL (36.4-46.3) H 09/20/24 RDW Coefficient of Variation 13.6 % (11.5-14.5) 09/20/24 Plt Count 177 K/uL (130-400) 09/20/24 MPV 9.6 fL (9.4-12.4) 09/20/24 Neutrophils (%) (Auto) 65.2 % 09/20/24 Lymphocytes (%) (Auto) 20.9 % 09/20/24 Monocytes # (Auto) 0.63 K/uL (0.11-0.59) H 09/20/24 Eosinophils # (Auto) 0.09 K/uL (0.00-0.50) 09/20/24 Immature Granulocyte % (Auto) 0.4 % 09/20/24 Neutrophils # (Auto) 3.59 K/uL (1.40-6.50) 09/20/24 Lymphocytes # (Auto) 1.15 K/uL (1.20-3.40) L 09/20/24 Monocytes # (Auto) 0.63 K/uL (0.11-0.59) H 09/20/24 Eosinophils # (Auto) 0.09 K/uL (0.00-0.50) 09/20/24 Basophils # (Auto) 0.03 K/uL (0.00-0.20) 09/20/24 Immature Granulocyte # (Auto) 0.02 K/uL (0.01-0.20) 4 PG Care Time/CCT Total # of Minutes Spent Total Time Spent with Patient: Total time spent is greater than 50% in coordination of care (as documented) at patient's floor/unit and/or counseling patient: Coding Level of Care Code 88050 IN/OBS CONSULT LVL 2,35M Diagnoses Ventral hernia K43.9 Incarcerated umbilical hernia K42.0
--- NOTE | 2024-09-20 16:41 | History & Physical Report ---
Date of Service September 20, 2024 Assessment & Plan (1) Ventral hernia: Plan: Worsening umbilical abdominal pain that began on Tuesday 09/18 Sent in due to concern for incarcerated hernia A/P CT revealed: No bowel obstruction No bowel involvement and hernia sacs Unchanged appearance of umbilical/suprapubic umbilical hernias with mild associated inflammatory stranding General Surgery consult appreciated Unasyn 3000 mg IV q6h Keep n.p.o. for now Tentative surgery on 09/22 Hold Eliquis for now N.p.o. except medications IVF with Plasma-Lyte at 80 mL/hr x 2 L In the setting of national IVF shortage will defer additional fluids Please add on additional IVF if needed the evening of 09/21 IV pain control as needed (2) Resistant hypertension: Plan: Continue hydralazine, amlodipine, and carvedilol Additional hydralazine 5mg IV as needed for SBP >200 or DBP>120 (3) Tobacco use: Plan: Daily tobacco use; 1 PPD Nicotine patch daily (4) Hx of heart artery stent: Plan: Continue aspirin (5) Primary hyperaldosteronism: Plan: Continue eplerenone (6) Cellulitis: Plan Disposition: Admit to [facility] Full code N.p.o. VTE PPx: SCDs; hold Eliquis History of Present Illness Chief Complaint: Umbilical pain Primary Care Provider: NO PCP Lamberto is a 63-year-old male with PMH of chronic ventral hernia, poorly controlled HTN, primary hyperaldosteronism, kidney stones, and nonischemic c ardiomyopathy. He presented on 09/20 for a painful "lump" near his umbilicus that he first noticed upon waking on Tuesday 09/18. He was referred to the ER out of concern for strangulated hernia. Patient reports constant pain around the umbilicus over the past 2 days. He rates the pain 6/10 at present. No radiation to the back or to other parts of his abdomen. He has not been taking any pain medicine at home for the pain. He characterizes it as a "burning" pain that he woke up with on Thursday. No recent change in diet. He reports that the pain is better when he is resting. No history of abdominal surgeries. He does have a history of chronic ventral hernia. Patient took his regular morning medicine today; only recent change is that his eplerenone was increased from daily to twice daily. Patient takes Eliquis for history of PAF. He is unsure why he takes aspirin, but reports he does have a history of a heart stent several years back. No PMH of [place], stroke, DM, or CHF. He is a current everyday tobacco cigarette smoker; 1 PPD. He denies any recent alcohol use. He does endorse eating an edible last night to help him sleep. Patient is hypertensive at 173/91, and mildly bradycardic at 51 bpm at time of admission; vitals otherwise stable. ED course: ROS: Patient endorses abdominal pain around the umbilicus, dry cough, and acid reflux last night (resolved). Patient denies fever, chills, night-sweats, dizziness, lightheadedness, chest pain, pleuritic CP, SOB, vomiting, diarrhea, changes in urinary/bowel habits, burning with urination, blood in the urine/stool, saddle anesthesia, numbness/tingling in the legs, or new lower back pain. Allergies Allergy/AdvReac Type Severity Reaction Status Date / Time No Known Allergies Allergy Verified 09/20/24 17:20 Home Medications Medication Instructions Recorded Confirmed Type aspirin 81 mg tablet,delayed 81 mg PO DAILY 04/28/23 09/20/24 History release (Adult Low Dose Aspirin) apixaban 5 mg tablet (Eliquis) 5 mg PO BID 08/14/23 09/20/24 History carvedilol 3.125 mg tablet 3.125 mg PO BID 02/16/24 09/20/24 History eplerenone 50 mg tablet 50 mg PO BID 02/16/24 09/20/24 History amlodipine 5 mg tablet 5 mg PO BID #60 tabs 06/14/24 09/20/24 Rx hydralazine 100 mg tablet 100 mg PO TID 06/14/24 09/20/24 History sacubitril 97 mg-valsartan 103 mg 1 tab PO BID 06/14/24 09/20/24 History tablet (Entresto) potassium chloride 20 mEq 20 meq PO BID 07/22/24 09/20/24 History tablet,extended release(part/cryst) Past Med/Surg History Problem List (Updated 09/21/24 @ 11:25 by Saad Perez MD) Cellulitis Tobacco use Hx of heart artery stent Incarcerated umbilical hernia Ventral hernia Lymphadenopathy Hyperaldosteronism Nonischemic cardiomyopathy Encounter for pre-operative examination Resistant hypertension RLL pneumonia Hypertensive urgency Hypertension (Chronic) History of kidney stones Primary hyperaldosteronism Smoking Poorly-controlled hypertension Medical History History of cardioversion Adrenal nodule Abdomen CT 08/03/23: Left renal nodule measuring 13 mm is unchanged from 2017 where it demonstrated 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 Impression: No evidence of adrenal hyperplasia. 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 CAD (coronary artery disease) 2018- 1 stent Hx of malignant melanoma of skin Approximately 2014 Atrial fibrillation History of COVID-19 2020- resolved Surgical History H/O wrist surgery S/P wisdom tooth extraction Hx of melanoma excision scalp Hx of cardiac catheterization 2018 [place]- 1 stent Hx of colonoscopy History of lumbar surgery x2 (20 years ago) Family History Brother Cancer Other No family history of adverse response to anesthesia Social History Smoking Status: Current every day smoker Tobacco Type: Cigarettes Cigarettes Per Day: 1 PPD; Second Hand Exposure: No; Do You Dip or Chew Tobacco: No; Hx Alcohol Use: Yes Alcohol type: beer Hx Substance Use: Yes Preferred Language: Greek Communication Ability: Effective Bus 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 Trolley Dispatcher Required: No Beliefs That Will Affect Care: None marital status: Current Living Situation: Spouse How many Children do You have: 2 Feels Safe at Home: Yes during the past year weight has: remained stable Assistive Devices: Denture - Upper, Denture - Lower and Glasses Review of Systems Review of Systems: See HPI above Physical Exam Physical Exam: General: no acute distress; non-toxic appearing; well-nourished; cooperative; SpO2 98% on RA HEENT: normocephalic, atraumatic; no scleral icterus; PERRLA; vision and hearing intact Neck: supple; trachea midline Skin: warm, dry without signs of tenting; no cyanosis; no rashes, bruising, lesions, or erythema noted CV: chest wall NTP; RR, bradycardic at 51 bpm; S1/S2 normal; no murmurs/rubs/gallops; pulses intact and symmetric at radial, DP, and PT Lungs: no acute respiratory distress; symmetrical chest wall expansion; clear breath sounds across all lung henao w/o adventitious sounds; no wheezing ABD: Soft; BS present; ventral hernia noted with some concerning erythema; no purple bruising; ventral hernia is TTP; abdominal distention secondary to hernia; erythema around the umbilicus as well; flanks are NTP MSK: no tics or fasciculations; no edema noted in the LEs b/l, nonerythematous Neuro: A&Ox3; normal mood and affect; fluent speech; no focal deficits; sensation grossly intact in the LEs b/l Results & Data Results & Data Vital Signs (Past 12 Hours) Vital Signs Temp Pulse Pulse Resp BP BP Pulse Ox 09/20/24 16:23 51 L 09/20/24 16:07 36.8 C 52 L 19 173/91 H 98 09/20/24 12:06 36.8 C 51 L 20 160/82 H 98 O2 Del Method 09/20/24 16:23 09/20/24 16:07 Room Air 09/20/24 12:06 Room Air Laboratory Results Abnormal lab results 09/20/24 Range/Units 12:27 RBC 4.54 L (4.70-6.10) M/uL RDW Std Deviation 46.8 H (36.4-46.3) fL Lymph # (Auto) 1.15 L (1.20-3.40) K/uL [place] # (Auto) 0.63 H (0.11-0.59) K/uL Glucose 103 H (70-99(Fasting)) mg/dl Diagnostic Findings Abdomen/Pelvis CT 09/20/24 14:[address] WITH IV CONTRAST CT DOSE: 1216.75 mGy.cm HISTORY: Acute generalized abdominal pain with possible abdominal wall hernia possible incarcerated hernia TECHNIQUE: Multiaxial CT images of the abdomen and pelvis were performed following the IV administration of 94 cc of Optiray, A dose lowering technique was utilized adhering to the principles of ALARA. COMPARISON STUDY: CT abdomen 08/03/2023 FINDINGS: Mild cardiomegaly with coronary artery calcifications. Clear lung bases. No pneumatosis or pneumoperitoneum. Unremarkable spleen, pancreas and right adrenal gland. Nodular thickening of the left adrenal gland measures up to 1.4 cm, unchanged from prior and likely benign. Contracted gallbladder. Un remarkable liver. Patent portal vein. No hydronephrosis. Renal cysts with unchanged 7 mm complex right renal cyst. 3 mm nonobstructing calculus of the inferior pole left kidney. Borderline enlarged prostate. Urinary bladder wall thickening with partial distention. Atherosclerosis of the aorta without aneurysm. Surgical clips of the prostate. Mildly enlarged right inguinal chain lymph node measures 1.2 cm. This is nonspecific. No bowel obstruction or bowel wall thickening. Colonic diverticulosis. Moderate colonic fecal retention. Normal appendix. Small fat filled umbilical hernia with mild inflammatory stranding, diastases of 1.2 cm which is similar to prior. Additionally, there is a midline supraumbilical midline abdominal wall hernia on image 142 with mild inflammation, opening of 2.5 cm. This is also similar to prior. No acute fracture. Severe L4-L5 intervertebral disc space narrowing with circumferential disc osteophyte complex. Avascular necrosis of the femoral heads. IMPRESSION: 1. No bowel obstruction or bowel wall thickening. 2. Unchanged appearance of the fat filled umbilical and suprapubic umbilical hernias with mild associated inflammatory stranding, similar in appearance to the study from 08/03/2023. No bowel involvement in the hernia sacs. 3. Nonobstructing left renal calculus. No hydronephrosis. 4. Colonic diverticulosis. 5. Avascular necrosis of the femoral heads. ACT 112: Negative or not required by law. The above report was generated using voice recognition software. It may contain grammatical, syntax or spelling errors. Electronically signed by: Vito Linares M.D. 09/20/2024 3:18 PM Code Status & VTE Plan Code Status Full code VTE Prophylaxis Plan VTE Prophylaxis will be ordered: Yes Supervising Physician Co-Signing Physician Notes I personally saw and examined the patient. I independently reviewed the labs, imaging, problem list, medication list, past medical history and family history. I verified all issa points and agree with Luis A Greer PA-C with the following exceptions and/or additions: 63 year old male presents to the ER with incarcerated hernia. Surgery asked medicine to admit for potential surgery on after holding anticoagulation O/E HS reduced rate, regular rhythm, no murmurs, Chest CTAB, Abdo tender over erythematous umbilical hernia, less tender over ventral hernia A/P Ventral and umbilical hernia with possible surrounding cellulitis - mild erythema surrounding hernias, likely just inflammatory change but agree with surgery who started Unasyn, NPO on Thursday night for surgery on , diet entered. Reduced hold on carvedilol to 50 bpm. EKG and CXR ordered for pre-op clearance. Otherwise plan as above. PG Care Time/CCT Total # of Minutes Spent Total Time Spent with Patient: Total time spent is greater than 50% in coordination of care (as documented) at patient's floor/unit and/or counseling patient: Coding [place] [address] INT INP/OBS CARE 2/55MIN Patient Type Established Medical Decision Making Moderate Complexity Diagnoses Ventral hernia K43.9 Resistant hypertension I10 Tobacco use Z72.0 Hx of heart artery stent Z95.5 Primary hyperaldosteronism E26.09 Cellulitis L03.90
[2024-09-20] MEDS: ACETAMINOPHEN 1,000 MG/100 ML VIAL IV STA (17:28)
[2024-09-20] MEDS: AMPICILLIN/SULBACTAM SOD 3,000 MG/100 ML BAG IV STA (17:44)
[2024-09-20] MEDS ORDERED: HYDROmorphone INJ 0.5 MG/0.5 ML SYR IV PRN (19:20)
[2024-09-20] MEDS ORDERED: ONDANSETRON INJ 2 MG/ML 2 ML VIAL IV PRN (19:20)
[2024-09-20] MEDS ORDERED: ACETAMINOPHEN 1,000 MG/100 ML VIAL IV PRN ×2 (19:20)
[2024-09-20] MEDS ORDERED: hydrALAZINE HCL 20 MG/ML VIAL IV PRN (19:20)
[2024-09-20] MEDS: PLASMA-LYTE A 1,000 ML IV SCH (19:38)
[2024-09-20 20:07] LABS: Appearance Urine Clear (Clear); Bilirubin Urine Negative (Negative); Blood Urine Negative (Negative); Color Urine Yellow; Glucose Urine UA Negative (Negative); Ketones Urine Negative (Negative); Leukocyte Esterase Urine Negative (Negative); Nitrite Urine Negative (Negative); Protein Urine Negative (Negative); Specific Gravity Urine 1.035 (1.000-1.030); Urobilinogen Urine Negative (Negative)
[2024-09-20] MEDS: carvediloL 3.125 MG TAB PO SCH (22:10)
[2024-09-20] MEDS: VALSARTAN/SACUBITRIL 103/97MG TAB PO SCH (22:38)
[2024-09-20] MEDS: amLODIPine BESYLATE 5 MG TAB PO SCH (22:39)
[2024-09-20] MEDS: POTASSIUM CHLORIDE CRTAB 20 MEQ TABCR PO SCH (22:39)
[2024-09-20] MEDS: hydrALAZINE TAB 50 MG TAB PO SCH (22:39)
[2024-09-20] MEDS: AMPICILLIN/SULBACTAM SOD 3,000 MG/100 ML BAG IV SCH (23:59)
--- NOTE | 2024-09-21 00:29 | XRay Report ---
Exam(s): XR CXR 1 VIEW EXAM: XR Chest, 1 View CLINICAL HISTORY: pre-op. TECHNIQUE: Frontal view of the chest. COMPARISON: 09-10-2018 FINDINGS: Lungs: No infiltrate. No atelectasis. No CHF. Pleural space: No pleural effusion. No pneumothorax. Heart: Mild cardiomegaly. Mediastinum: Unremarkable. Normal mediastinal contour. Bones/joints: Unremarkable. No acute fracture. IMPRESSION: No acute abnormality. Electronically signed by: Zhen Beasley M.D. 09/21/24 00:29 AM
[2024-09-21] MEDS: ACETAMINOPHEN 325 MG TAB PO PRN (06:11)
[2024-09-21 06:18] LABS: Hematocrit (blood only) 41.7 % (42.0-52.0); Mean Corpuscular Hemoglobin 30.7 pg (25.0-34.0); Mean Corpuscular Hgb Conc 33.6 g/dL (32.0-36.0); Mean Corpuscular Volume 91.4 fL (80.0-100.0); Mean Platelet Volume 9.8 fL (9.4-12.4); Neutrophils % (auto) 57.5 %; Platelet Count 173 K/uL (130-400); RDW Coefficient of Variation 13.7 % (11.5-14.5); RDW Standard Deviation 46.5 fL (36.4-46.3); Red Blood Count 4.56 M/uL (4.70-6.10); White Blood Count 4.18 K/ul (4.8-10.8)
[2024-09-21 06:19] LABS: Basophils # (auto) 0.02 K/uL (0.00-0.20); Basophils % (auto) 0.5 %; Eosinophils % (auto) 2.4 %; Immature Granulocytes # (auto) 0.01 K/uL (0.01-0.20); Immature Granulocytes % (auto) 0.2 %; Lymphocytes # (auto) 1.13 K/uL (1.20-3.40); Monocytes # (auto) 0.52 K/uL (0.11-0.59); Monocytes % (auto) 12.4 %
[2024-09-21 06:35] LABS: BUN Creatinine Ratio 12.8 (10-20); Calcium 8.6 mg/dl (8.6-10.3); Creatinine Clr Calc Pharmacy 98.3 ml/min; Potassium 3.9 mmol/L (3.5-5.1)
--- NOTE | 2024-09-21 08:41 | Cardiology Consultation ---
Date of Consultation September 21, 2024 Assessment & Plan (1) Incarcerated umbilical hernia: Plan Past cardiac Hx: 1. PAF s/p cardioversion 08/2023 2. Non ischemic cardiomyopathy with EF of 45% prior to CV, now with recovered LVF on echo 12/2023 3. 2018 cath showing moderate non obstructive single vessel coronary disease of 50% in LAD 4. Hyperaldosteronism 5. Ascending aortic aneurysm of 4.4 cm at the root and 4.1 cm ascending on echo 6. Frequent PVCs 7. Tobacco use Mr. Barrios does not have any cardiac complaints or concerning anginal symptoms. He can ascend a flight of stairs without dyspnea or chest pain. He appears euvolemic and there is no congestion on his chest Xray. He is in SB on the monitor. He does not feel any dizziness or sob from this and we can accept the lower rates. He is a moderate cardiovascular risk for cardiac complication perioperatively, the most likely complication being going into afib. EKG is pending. He does not need further cardiac testing prior to his surgery. His anticoagulation can be held for 48 hours prior to surgery and resumed [place] per surgery's recommendation. History of Present Illness Attending Physician: Jean Claude Quinonez MD History of Present Illness Mr. Barrios presented to the emergency department yesterday at the direction of his pcp after she evaluated him in the clinic. He will undergo laparoscopic vs open hernia surgery for incarcerated hernia. He is in sinus bradycardia on the monitor. He denies sob or chest pain. No palpitations. No edema. Allergies Allergy/AdvReac Type Severity Reaction Status Date / Time No Known Allergies Allergy Verified 09/20/24 17:20 Home Medications Medication Instructions Recorded Confirmed Type aspirin 81 mg tablet,delayed 81 mg PO DAILY 04/28/23 09/20/24 History release (Adult Low Dose Aspirin) apixaban 5 mg tablet (Eliquis) 5 mg PO BID 08/14/23 09/20/24 History carvedilol 3.125 mg tablet 3.125 mg PO BID 02/16/24 09/20/24 History eplerenone 50 mg tablet 50 mg PO BID 02/16/24 09/20/24 History amlodipine 5 mg tablet 5 mg PO BID #60 tabs 06/14/24 09/20/24 Rx hydralazine 100 mg tablet 100 mg PO TID 06/14/24 09/20/24 History sacubitril 97 mg-valsartan 103 mg 1 tab PO BID 06/14/24 09/20/24 History tablet (Entresto) potassium chloride 20 mEq 20 meq PO BID 07/22/24 09/20/24 History tablet,extended release(part/cryst) Patient History Medical History History of cardioversion Adrenal nodule Abdomen CT 08/03/23: Left renal nodule measuring 13 mm is unchanged from 2017 where it demonstrated 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 Impression: No evidence of adrenal hyperplasia. 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 CAD (coronary artery disease) 2018- stent Hx of malignant melanoma of skin Approximately 2014 Atrial fibrillation History of COVID-19 2020- resolved Surgical History H/O wrist surgery S/P wisdom tooth extraction Hx of melanoma excision scalp Hx of cardiac catheterization 2017 [place]- 1 stent Hx of colonoscopy History of lumbar surgery x2 (20 years ago) Family History Brother Cancer Other No family history of adverse response to anesthesia Social History Smoking Status: Current every day smoker Tobacco Type: Cigarettes Cigarettes Per Day: 1 PPD; Second Hand Exposure: No; Do You Dip or Chew Tobacco: No; Hx Alcohol Use: Yes Alcohol type: beer Hx Substance Use: Yes Preferred Language: Bermudian Communication Ability: Effective Pad Hand Required: No Beliefs That Will Affect Care: None marital status: Current Living Situation: Spouse How many Children do You have: 2 Feels Safe at Home: Yes during the past year weight has: remained stable Assistive Devices: Denture - Upper, Denture - Lower and Glasses Review of Systems Review of Systems: All systems reviewed & are unremarkable except as noted in HPI & below Physical Exam Constitutional: WD/WN, vitals as above Respiratory: normal respiratory effort, lungs clear to auscultation Cardiovascular: RRR, no murmur, no edema Skin: no rashes, warm and dry Neurologic: moves all extremities and awake Psychiatric: A+Ox3, euthymic affect Results & Data Vital Signs (Past 12 Hours) Vital Signs Pulse Pulse Resp BP BP Pulse Ox Pulse Ox 09/21/24 07:40 57 L 18 157/91 H 96 09/21/24 07:18 45 L 09/21/24 06:13 54 L 18 173/93 H 97 09/21/24 00:02 100 09/21/24 00:02 48 L 16 134/75 100 09/20/24 23:17 49 L 09/20/24 23:00 48 L 16 131/79 95 09/20/24 22:00 46 L 16 141/78 H 93 09/20/24 21:30 49 L 20 127/77 95 09/20/24 21:00 48 L 18 127/77 96 O2 Del Method O2 Del Method 09/21/24 07:40 Room Air 09/21/24 07:18 09/21/24 06:13 Room Air 09/21/24 00:02 Room Air 09/21/24 00:02 Room Air 09/20/24 23:17 09/20/24 23:00 Room Air 09/20/24 22:00 Room Air 09/20/24 21:30 Room Air 09/20/24 21:00 Room Air
[2024-09-21] MEDS: NICOTINE 14 MG/24 HR PATCH TD SCH (08:58)
[2024-09-21] MEDS: ASPIRIN 81 MG ECTAB PO SCH (08:59)
--- NOTE | 2024-09-21 10:20 | Surgery Progress Note ---
Date of Service September 21, 2024 Assessment & Plan (1) Incarcerated umbilical hernia: Plan: Will plan on laparoscopic repair of both hernias tomorrow with mesh. We discussed potential risks and complications including bleeding, infection, injury to another organ, DVT, PE, RI, CVA etc. We did discuss the left flank mass previously worked up by Dr. Simpson ... I am unable to palpate the mass and I do not identified on CT scan. I think risk benefit would warrant not performing any surgical intervention particularly when we are going to be placing at least 1 if not 2 pieces of mesh. He agrees with this plan. Continue to hold his anticoagulation and we will plan laparoscopic repair of a ventral as well as umbilical hernia with mesh tomorrow. Questions answered. (2) Ventral hernia: (3) Tobacco use: (4) Hx of heart artery stent: (5) Hypertension: Admission and Anticipated Discharge Date Admission Date: September 20, 2024 Subjective Patient seen. Continues to have some discomfort primarily at the umbilical hernia site however as long as he is not moving around the discomfort is minimal. Physical Exam Constitutional: WD/WN, vitals as above no acute distress and not ill appearing Eyes: PERRL, conjunctivae normal, anicteric sclerae EOM intact bilaterally ENMT: external ear and nose normal, oropharynx normal Ears: no hearing impairment Neck: trachea midline, no thyromegaly Respiratory: normal respiratory effort; no respiratory distress and does not use accessory muscles Cardiovascular: Rate/Rhythm: regular rate and regular rhythm Gastrointestinal (Abdomen): Soft. Positive tenderness primarily at the umbilical hernia. Also incarcerated ventral hernia above the umbilicus. Neither 1 reducible. I am unable to palpate the left flank soft tissue mass/lesion previously biopsi ed Skin: no rashes, warm and dry Psychiatric: Orientation: alert, oriented x 3 and cooperative Results & Data Vital Signs (Past 12 Hours) Vital Signs Pulse Pulse Resp BP BP Pulse Ox Pulse Ox 09/21/24 09:06 46 L 18 150/81 H 96 09/21/24 07:40 57 L 18 157/91 H 96 09/21/24 07:18 45 L 09/21/24 06:13 54 L 18 173/93 H 97 09/21/24 00:02 100 09/21/24 00:02 48 L 16 134/75 100 09/20/24 23:17 49 L 09/20/24 23:00 48 L 16 131/79 95 O2 Del Method O2 Del Method 09/21/24 09:06 Room Air 09/21/24 07:40 Room Air 09/21/24 07:18 09/21/24 06:13 Room Air 09/21/24 00:02 Room Air 09/21/24 00:02 Room Air 09/20/24 23:17 09/20/24 23:00 Room Air PG Care Time/CCT Total # of Minutes Spent Total Time Spent with Patient: Total time spent is greater than 50% in coordination of care (as documented) at patient's floor/unit and/or counseling patient: Coding Level of Care Code 57324 SUB INP/OBS CARE 11/12MIN Diagnoses Incarcerated umbilical hernia K42.0 Ventral hernia K43.9 Tobacco use Z72.0 Hx of heart artery stent Z95.5 Hypertension I10
--- NOTE | 2024-09-21 17:21 | Hospitalist Progress Note ---
Date of Service September 21, 2024 Assessment & Plan (1) Ventral hernia: Plan: Worsening umbilical abdominal pain that began on Tuesday 09/18 has some cellulitis around umbilicus Sent in due to concern for incarcerated hernia A/P CT revealed: No bowel obstruction No bowel involvement and hernia sacs Unchanged appearance of umbilical/suprapubic umbilical hernias with mild associated inflammatory stranding General Surgery consult appreciated. plans for OR 09/19 Unasyn 3000 mg IV q6h Keep n.p.o. for or 09/22, one liter of fluid started at midnight Hold Eliquis for now IVF with Plasma-Lyte at 80 mL/hr x 2 L IV pain control as needed (2) Nonischemic cardiomyopathy: Plan: stable HFrEF, on entresto chronic hypertension continue hydralazine amlodipine and coreg h/o Cad with stent no signs of unstable angina or HF- hold aspirin with possible surgery (3) Primary hyperaldosteronism: Plan: Continue eplerenone (4) Tobacco use: Plan: Daily tobacco use; 1 PPD Nicotine patch daily Plan Disposition: Admit to [facility] Full code Admission and Anticipated Discharge Date Admission Date: September 20, 2024 Subjective pt with persistent abdominal pain and redness around his umbilicus no recent chest pain or sob Physical Exam Physical Exam: cardiac exam is regular lungs are clear abd is with ventral hernia that is mildly tender and reducible umbilical hernia exquisitely tender and skin reddened Results & Data Results & Data Vital Signs (Past 12 Hours) Vital Signs Temp Pulse Pulse Pulse Resp BP BP 09/21/24 14:15 97.5 F L 55 L 16 145/79 H 09/21/24 14:00 97.9 F 53 L 20 153/87 H 09/21/24 13:46 97.9 F 53 L 20 09/21/24 13:45 98.2 F 53 L 20 09/21/24 09:06 46 L 18 09/21/24 07:40 57 L 18 09/21/24 07:18 45 L 09/21/24 06:13 54 L 18 BP Pulse Ox O2 Del Method 09/21/24 14:15 99 Room Air 09/21/24 14:00 98 Room Air 09/21/24 13:46 153/87 H 98 Room Air 09/21/24 13:45 157/83 H 98 Room Air 09/21/24 09:06 150/81 H 96 Room Air 09/21/24 07:40 157/91 H 96 Room Air 09/21/24 07:18 09/21/24 06:13 173/93 H 97 Room Air Laboratory Results review cbc review chemistry PG Care Time/CCT Total # of Minutes Spent Total Time Spent with Patient: Total time spent is greater than 50% in coordination of care (as documented) at patient's floor/unit and/or counseling patient: Coding Level of Care Code 90803 SUB INP/OBS CARE 3/50MIN Diagnoses Ventral hernia K43.9 Nonischemic cardiomyopathy I42.8 Primary hyperaldosteronism E26.09 Tobacco use Z72.0
[2024-09-21] MEDS: EPLERENONE 50 MG PO SCH (20:53)
[2024-09-21] MEDS: SODIUM CHLORIDE 0.9% 1,000 ML IV SCH (23:38)
[2024-09-22 06:25] LABS: Basophils # (auto) 0.03 K/uL (0.00-0.20); Basophils % (auto) 0.5 %; Eosinophils # (auto) 0.11 K/uL (0.00-0.50); Eosinophils % (auto) 1.8 %; Hematocrit (blood only) 40.2 % (42.0-52.0); Hemoglobin 13.9 g/dl (14.0-18.0); Immature Granulocytes # (auto) 0.02 K/uL (0.01-0.20); Immature Granulocytes % (auto) 0.3 %; Lymphocytes # (auto) 1.34 K/uL (1.20-3.40); Lymphocytes % (auto) 21.8 %; Mean Corpuscular Hemoglobin 31.3 pg (25.0-34.0); Mean Corpuscular Hgb Conc 34.6 g/dL (32.0-36.0); Mean Corpuscular Volume 90.5 fL (80.0-100.0); Mean Platelet Volume 10.1 fL (9.4-12.4); Monocytes # (auto) 0.64 K/uL (0.11-0.59); Monocytes % (auto) 10.4 %; Neutrophils % (auto) 65.2 %; Platelet Count 182 K/uL (130-400); RDW Coefficient of Variation 13.1 % (11.5-14.5); RDW Standard Deviation 43.9 fL (36.4-46.3); Red Blood Count 4.44 M/uL (4.70-6.10); White Blood Count 6.14 K/ul (4.8-10.8)
[2024-09-22 06:43] LABS: BUN Creatinine Ratio 12.3 (10-20); Calcium 8.5 mg/dl (8.6-10.3); Creatinine Clr Calc Pharmacy 103.8 ml/min; Potassium 3.6 mmol/L (3.5-5.1)
[2024-09-22] MEDS ORDERED: OXYMETAZOLINE 0.05% 30 ML BTL PRN (10:51)
[2024-09-22] MEDS ORDERED: MIDAZOLAM HCL 1 MG/ML 2ML VIAL ONE (11:12)
[2024-09-22] MEDS ORDERED: fentaNYL citrate PF 100 MCG/2 ML VIAL ONE ×2 (11:12→13:49)
[2024-09-22] MEDS ORDERED: ROCURONIUM BROMIDE 10 MG/ML 5 ML VIAL IV ONE ×2 (11:13→13:30)
[2024-09-22] MEDS ORDERED: PROPOFOL IV EMULSION 10 MG/ML 20 ML VIAL IV ONE (11:13)
[2024-09-22] MEDS ORDERED: LIDOCAINE 2% 2 ML VIAL/AMP(20MG/ML) INFIL ONE (11:13)
[2024-09-22] MEDS ORDERED: ONDANSETRON INJ 2 MG/ML 2 ML VIAL ONE (11:13)
[2024-09-22] MEDS ORDERED: DEXAMETHASONE SOD INJ 4 MG/ML VIAL ONE (11:13)
--- NOTE | 2024-09-22 11:33 | History & Physical Bridge Note ---
Date of Service September 22, 2024 History & Physical Bridge Note I have examined the patient, reviewed the History & Physical and in the interval since the performance of the History & Physical I have noted the following changes of clinical significance: no changes noted
[2024-09-22] MEDS: SODIUM CHLORIDE 0.9% 1,000 ML IV SCH (12:34)
[2024-09-22] MEDS ORDERED: FLUMAZENIL 0.1 MG/1 ML 10 ML VIAL IV PRN (12:48)
[2024-09-22] MEDS ORDERED: PROMETHAZINE HCL 6.25 MG in SODIUM CHLORIDE 0.9% 50 ML IV PRN (12:48)
[2024-09-22] MEDS ORDERED: ONDANSETRON INJ 2 MG/ML 2 ML VIAL IV PRN (12:48)
[2024-09-22] MEDS ORDERED: ATROPINE SULFATE 0.1 MG/ML 10ML SYR IV PRN (12:48)
[2024-09-22] MEDS ORDERED: NALOXONE HCL 0.4 MG/1 ML VIAL/CARP IV PRN (12:48)
[2024-09-22] MEDS ORDERED: ePHEDrine sulfate 50 MG/ML AMP IV PRN (12:48)
--- NOTE | 2024-09-22 12:48 | Anesthesiology Consultation ---
Date of Service September 22, 2024 Assessment & Plan Chart Review Chart Review: Acceptable Risk for Surgery and Patient NOT seen in Pre Admission Testing Consults Requested none ASA ASA4 Proposed Anesthesia Anesthesia Type: General Risk / Benefits Reviewed With: PT / POA / Parent / Guardian, Accepts Plan and Informed Consent Obtained History Surgery Operation Date: 09/22/24 13:35 Proposed Procedures p Laparoscopic Umbilical and Ventral Hernia Repairs with Possible Mesh - Darrius Olsen, DO Height/Weight Height: 5 ft 7 in Weight: 94.8 kg Allergies Allergy/AdvReac Type Severity Reaction Status Date / Time No Known Allergies Allergy Verified 09/20/24 17:20 Medications Home Medications Medication Instructions Recorded Confirmed Last Taken aspirin 81 mg tablet,delayed 81 mg PO DAILY 04/28/23 09/20/24 09/20/24 release (Adult Low Dose Aspirin) apixaban 5 mg tablet (Eliquis) 5 mg PO BID 08/14/23 09/20/24 09/20/24 carvedilol 3.125 mg tablet 3.125 mg PO BID 02/16/24 09/20/24 09/20/24 eplerenone 50 mg tablet 50 mg PO BID 02/16/24 09/20/24 09/20/24 amlodipine 5 mg tablet 5 mg PO BID #60 tabs 06/14/24 09/20/24 09/20/24 hydralazine 100 mg tablet 100 mg PO TID 06/14/24 09/20/24 09/20/24 sacubitril 97 mg-valsartan 103 mg 1 tab PO BID 06/14/24 09/20/24 09/20/24 tablet (Entresto) potassium chloride 20 mEq 20 meq PO BID 07/22/24 09/20/24 09/20/24 tablet,extended release(part/cryst) Active Medications Generic Name Dose Route Start Last Admin Trade Name Freq PRN Reason Stop Dose Admin Acetaminophen 650 mg 09/20/24 20:46 09/21/24 23:40 Acetaminophen 325 Mg Tab PO 10/20/24 20:45 650 mg Q4H PRN Administration Pain or Fever Amlodipine Besylate 5 mg 09/20/24 21:00 09/22/24 07:32 Amlodipine Besylate 5 Mg Tab PO 10/20/24 20:59 5 mg BID JORGE LUIS Administration Aspirin 81 mg 09/21/24 09:00 09/21/24 08:59 Aspirin 81 Mg Ectab PO 10/21/24 08:59 81 mg DAILY JORGE LUIS Administration Carvedilol 3.125 mg 09/20/24 19:45 09/22/24 07:32 Carvedilol 3.125 Mg Tab PO 10/20/24 19:44 3.125 mg BIDM JORGE LUIS Administration Eplerenone 1 each 09/21/24 21:00 09/22/24 07:33 Eplerenone 50 Mg (Patient's Own Med) PO 10/21/24 20:59 1 each BID JORGE LUIS Administration Hydralazine HCl 100 mg 09/20/24 21:00 09/22/24 07:33 Hydralazine Tab 50 Mg Tab PO 10/20/24 20:59 100 mg TID JORGE LUIS Administration Ampicillin Sodium/Sulbactam Sodium 3,000 mg in 100 mls @ 200 mls/hr 09/20/24 23:30 09/22/24 12:38 Unasyn IV 09/30/24 23:29 Infused Q6 JORGE LUIS Infusion Sodium Chloride 1,000 mls @ 15 mls/hr 09/22/24 12:15 09/22/24 12:34 Nss IV 09/23/24 12:14 15 mls/hr .Q24H JORGE LUIS Administration KVO Miscellaneous 1 each 09/21/24 08:59 09/22/24 07:32 Remove Nicoderm Patch N/A 10/21/24 08:58 1 each DAILY@0859 JORGE LUIS Administration Nicotine 1 patch 09/21/24 09:00 09/22/24 07:33 Nicotine 14 Mg/24 Hr Patch TD 10/21/24 08:59 1 patch QAM JORGE LUIS Administration Potassium Chloride 20 meq 09/20/24 21:00 09/22/24 07:35 Potassium Chloride Crtab 20 Meq Tabcr PO 10/20/24 20:59 20 meq BID JORGE LUIS Administration Sacubitril/Valsartan 1 tab 09/20/24 21:00 09/22/24 07:33 Valsartan/Sacubitril 103/97mg Tab PO 10/20/24 20:59 1 tab BID JORGE LUIS Administration NPO Date Last Intake of Fluids: 09/22/24 Time Last Intake of Fluids: 07:30 Last Intake of Fluids Comment: sip with meds Date Last Intake of Solids: 09/21/24 Time Last Intake of Solids: 21:00 Past Medical History Medical History History of cardioversion Adrenal nodule Abdomen CT 08/03/23: Left renal nodule measuring 13 mm is unchanged from 2017 where it demonstrated 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 Impression: No evidence of adrenal hyperplasia. 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 CAD (coronary artery disease) 2018- stent Hx of malignant melanoma of skin Approximately 2014 Atrial fibrillation History of COVID-19 2020- resolved Exercise / Class Metabolic Activity II 4-5 Yardwork/Stairs/Walk up hill Past Family History Family History Brother Cancer Other No family history of adverse response to anesthesia Past Surgical History Surgical History H/O wrist surgery S/P wisdom tooth extraction Hx of melanoma excision scalp Hx of cardiac catheterization 2018 [place]- 1 stent Hx of colonoscopy History of lumbar surgery x2 (20 years ago) Past Anesthesia History No Hx of Anesthesia Complications and No Family Hx of Anesthesia Complications History of PONV No Hx of PONV and No Hx of Motion Sickness Social History Smoking Status: Current every day smoker Smoking cigarettes per day: 1 PPD Do You Dip or Chew Tobacco: No Hx Alcohol Use: Yes Alcohol type: beer alcohol intake frequency: a few times a week Hx Substance Use: Yes substance use type: marijuana Physical Exam Vital Signs Last Vital Signs Temp 36.5 C 09/22/24 12:20 Pulse 48 L 09/22/24 12:20 Resp 18 09/22/24 12:20 BP 162/84 H 09/22/24 12:20 Pulse Ox 98 09/22/24 12:20 O2 Del Method Room Air 09/22/24 12:20 Constitutional + obese; no acute distress ENMT Mouth: + dentition abnormality and + edentulous Thyromental Distance: > or= 3.5 Finger Breadths Mallampati Class: II Neck normal visual inspection, trachea midline and + facial hair; neck extension not limited Respiratory normal respiratory effort Auscultation: + diminished lung sounds and + wheezes Cardiovascular Rate/Rhythm: regular rate, regular rhythm and + bradycardic Heart Sounds: no murmur Vessels: no carotid bruit Musculoskeletal Spine: normal cervical ROM and no pain with cervical ROM Extremities: full ROM of extremities Neurologic moves all extremities Motor/Sensory: no sensory deficit Psychiatric Orientation: alert and oriented x 3 Testing Laboratory Results 09/22/24 05:30 09/22/24 05:30 Urine Color Yellow 09/20/24 19:45 Urine Appearance Clear (Clear) 09/20/24 19:45 Urine pH 7.0 (4.5-7.5) 09/20/24 19:45 Ur Specific [place] 1.035 (1.000-1.030) H 09/20/24 19:45 Urine Protein Negative (Negative) 09/20/24 19:45 Urine Glucose (UA) Negative (Negative) 09/20/24 19:45 Urine Ketones Negative (Negative) 09/20/24 19:45 Urine Nitrite Negative (Negative) 09/20/24 19:45 Ur Leukocyte Esterase Negative (Negative) 09/20/24 19:45 Electrocardiogram Date: 09/21/24 Findings: + LVH and + SB @ (@ 50 w/occas. pvc's;) Chest X-Ray Date: 09/20/24 Findings: + NAD Echocardiogram Date: 07/09/23 EF: 45% LV Function: dysfunctional RWMA: + hypokinetic (global HK mild) Other Findings: + atrial enlargement (RA/LA mildly dilated) Valvular Disease: + MR (mod.) TR-mild Dilated Ao root 4.5cm Cardiac Catheterization Date: 12/04/17 Findings: + RCA (LI's), + LMA (Distal LI's), + LCX (LI's) and + pertinent finding (LAD-mid 50% after D2) Intervention: + none
[2024-09-22] MEDS ORDERED: ePHEDrine sulfate 50 MG/5 ML SYR ONE (13:18)
[2024-09-22] MEDS ORDERED: KETOROLAC 30 MG/ML VIAL ONE (13:37)
[2024-09-22] MEDS ORDERED: SUGAMMADEX SODIUM 200 MG/2 ML VIAL IV ONE (13:37)
[2024-09-22] MEDS: BUPIVACAINE/EPINEPHRINE 0.5% MPF 1:200,000 30 ML VIAL ONE (13:58)
[2024-09-22] MEDS: fentaNYL citrate PF 100 MCG/2 ML VIAL IV PRN (14:30)
[2024-09-22] MEDS: HYDROmorphone INJ 1 MG/ML SYRINGE IV PRN (14:50)
--- NOTE | 2024-09-22 15:02 | Electrocardiogram Report ---
Test Reason : Blood Pressure : */* mmHG Vent. Rate : 50 BPM Atrial Rate : 50 BPM P-R Int : 152 ms QRS Dur : 100 ms QT Int : 430 ms P-R-T Axes : 39 14 51 degrees QTcB Int : 392 ms Sinus bradycardia with occasional Premature ventricular complexes Minimal voltage criteria for LVH, may be normal variant Borderline ECG When compared with ECG of 09-Sep-2023 07:26, Premature ventricular complexes are now Present Nonspecific T wave abnormality no longer evident in Inferior leads T wave amplitude has increased in Anterolateral leads Confirmed by Gregorio Townsend ([id number]) on 09/22/2024 3:01:52 PM Referred By: REFERRED SELF Confirmed By: Gregorio Townsend
--- NOTE | 2024-09-22 15:22 | Anesthesiology Progress Note ---
Date of Service September 22, 2024 Anesthesia Post Procedure Vital Signs Vital Signs: Temp Pulse Pulse Resp BP Pulse Ox O2 Del Method 09/22/24 15:10 54 L 19 127/79 96 Nasal Cannula 09/22/24 15:00 55 L 20 133/79 97 Nasal Cannula 09/22/24 14:50 53 L 14 132/74 97 Nasal Cannula 09/22/24 14:40 55 L 14 145/90 H 99 Oxymask 09/22/24 14:30 51 L 17 135/73 98 Oxymask 09/22/24 14:20 36.1 C L 56 L 17 147/95 H 98 Oxymask 09/22/24 12:20 36.5 C 48 L 18 162/84 H 98 Room Air 09/22/24 07:12 36.4 C L 60 18 153/78 H 97 Room Air 09/21/24 19:30 36.5 C 67 18 167/87 H 97 Room Air 09/21/24 17:16 66 16 140/77 92 Room Air O2 Flow Rate 09/22/24 15:10 2 09/22/24 15:00 2 09/22/24 14:50 2 09/22/24 14:40 3 09/22/24 14:30 6 09/22/24 14:20 6 09/22/24 12:20 09/22/24 07:12 09/21/24 19:30 09/21/24 17:16 Pain Intensity Abdomen: Pain Intensity: 4 Transfer of Care Handoff Completed per policy Notes Mental Status: alert / awake / arousable Patient Amnestic to Procedure: Yes Nausea / Vomiting: adequately controlled Pain: adequately controlled Airway Patency, RR, SpO2: stable & adequate BP & HR: stable & adequate Hydration State: stable & adequate Anesthetic Complications: no major complications apparent
[2024-09-22] MEDS ORDERED: oxyCODONE HCL IR 5 MG TAB (IMMEDIATE RELEASE) PO PRN (15:51)
--- NOTE | 2024-09-22 16:10 | Operative Report ---
PG Post Operative Report Pre & Post Diagnosis Operation Date: 09/22/24 13:35 Pre-Op Diagnosis: 1. Ventral hernia 2. Umbilical Hernia Post-Op Diagnosis: 1. Ventral Hernia 2. Umbilical Hernia I identified the patient and participated in the time-out.: Yes Procedure Operation Date: 09/22/24 13:35 Actual Procedures p Laparoscopic Umbilical (2cm) and Ventral Hernia(4cm) Repairs with Mesh(Not Applicable) - Darrius Olsen DO Surgeon Darrius Olsen DO Dining Room Host/Hostess christina Feliciano Estimated Blood Loss 10 Findings Consistent with Post-Op Diagnosis Specimens none Description of Procedure After informed consent was obtained the patient was taken the operating room and placed in supine position. After successful intubation the abdomen was shaved and sterilely prepped and draped in usual fashion. A left upper quadrant incision was made with an 11 blade scalpel. This was carried down through the soft tissue using cautery. The anterior fascia was opened using cautery and two #0 Vicryl stay sutures were placed. Peritoneum was entered using blunt finger penetration and a finger sweep performed. A 12 mm Jackman trocar was placed and the abdomen was insufflated to 18 mmHg. Laparoscope was inserted and the abdomen was examined in 360 degrees. There were 2 hernias one at the umbilicus and 1 several centimeters above the umbilicus. The umbilical hernia measured approximately 2 cm in the ventral hernia approximately 4 cm. Both had incarcerated fat within them. I placed a left mid abdominal 5 mm trocar a left lower quadrant 5 mm trocar and a right mid abdominal 5 mm trocar. I began by reducing both hernias. I excised the sacs as well as the incarcerated fat. The fat within the umbilical hernia was infarcted. Once I removed the hernia sacs in their entirety as well as the incarcerated fat I did place all of this debris into an Endo Catch bag and removed it. I also took down part of the falciform ligament so that the mesh underlay would lay flat. Once all this was accomplished I realized I would have to use 2 pieces of mesh. I used a 12 cm circular Surgi-mesh for the larger hernia and a 10 cm circular Surgi-mesh for the smaller umbilical hernia. I began with the larger piece. I rolled it and place it into the abdominal cavity through the camera port site. It was unrolled such that the antiadhesive barrier was facing the bowel. I made a small incision over the central portion of the defect and used a fascial closure device to come through the central portion of the hernia and grasped the central Prolene stitch. This was used to pull the mesh up as an underlay. A Reliatack with absorbable tacks was used to secure the mesh. I used the deep tacks. The mesh did laid nice and flat and tension-free. I used the exact same technique for the smaller hernia. Again a small incision was made over the central portion and a fascial closure device used to pull the Prolene stitch and bring the mesh up as an underlay. The same tacking device was used to secure this mesh as well. At the completion of the procedure there was adequate hemostasis. Both meshes covered the defects for multiple centimeters in all directions, laid nice and flat and tension-free, and there was adequate hemostasis. A final look around the abdomen showed no other abnormalities. The trocars were all removed and the abdomen desufflated. The fascia of the camera port was closed using 0 Vicryl in a [id number] fashion. All the wounds were irrigated and closed using 4-0 Monocryl. Marcaine with epinephrine was injected around the incisions for postoperative analgesia and skin glue used as a dressing. The patient was awakened extubated and transferred recovery in stable condition. My nurse practitioner was present for the entire case was instrumental in providing exposure, running the camera, assisting with mesh placement wound closure and dressing placement. I attest to the content of the Intraoperative Record and any orders documented therein. Any exceptions are noted below.
--- NOTE | 2024-09-22 16:19 | Hospitalist Progress Note ---
Date of Service September 22, 2024 Assessment & Plan (1) Ventral hernia: Plan: Worsening umbilical abdominal pain that began on Tuesday 09/18 has some cellulitis around umbilicus Sent in due to concern for incarcerated hernia A/P CT revealed: No bowel obstruction No bowel involvement and hernia sacs Unchanged appearance of umbilical/suprapubic umbilical hernias with mild associated inflammatory stranding General Surgery consult appreciated. plans for OR 09/19 Unasyn 3000 mg IV q6h Keep n.p.o. for or 09/22, one liter of fluid started at midnight Hold Eliquis for now IVF with Plasma-Lyte at 80 mL/hr x 2 L IV pain control as needed (2) Nonischemic cardiomyopathy: Plan: stable HFrEF, on entresto chronic hypertension continue hydralazine amlodipine and coreg h/o Cad with stent no signs of unstable angina or HF- hold aspirin with possible surgery (3) Primary hyperaldosteronism: Plan: Continue eplerenone (4) Tobacco use: Plan: Daily tobacco use; 1 PPD Nicotine patch daily Plan Disposition: Admit to [facility] Full code Admission and Anticipated Discharge Date Admission Date: September 20, 2024 Subjective pt was seen pre operatively with persistent abdominal pain and redness around his umbilicus no recent chest pain or sob Physical Exam Physical Exam: cardiac exam is regular lungs are clear abd is with ventral hernia that is mildly tender and reducible umbilical hernia exquisitely tender and skin reddened Results & Data Results & Data Vital Signs (Past 12 Hours) Vital Signs Temp Pulse Pulse Pulse Resp BP Pulse Ox 09/22/24 15:51 97.7 F 53 L 16 150/79 H 93 09/22/24 15:38 57 L 15 126/72 94 09/22/24 15:20 98.2 F 56 L 17 125/70 95 09/22/24 15:10 54 L 19 127/79 96 09/22/24 15:00 55 L 20 133/79 97 09/22/24 14:50 53 L 14 132/74 97 09/22/24 14:40 55 L 14 145/90 H 99 09/22/24 14:30 51 L 17 135/73 98 09/22/24 14:20 97.0 F L 56 L 17 147/95 H 98 09/22/24 12:20 97.7 F 48 L 18 162/84 H 98 09/22/24 07:12 97.5 F L 60 18 153/78 H 97 O2 Del Method O2 Flow Rate 09/22/24 15:51 Nasal Cannula 2 09/22/24 15:38 Nasal Cannula 2 09/22/24 15:20 Nasal Cannula 2 09/22/24 15:10 Nasal Cannula 2 09/22/24 15:00 Nasal Cannula 2 09/22/24 14:50 Nasal Cannula 2 09/22/24 14:40 Oxymask 3 09/22/24 14:30 Oxymask 6 09/22/24 14:20 Oxymask 6 09/22/24 12:20 Room Air 09/22/24 07:12 Room Air Laboratory Results reviewed cbc reviewed chemistry PG Care Time/CCT Total # of Minutes Spent Total Time Spent with Patient: Total time spent is greater than 50% in coordination of care (as documented) at patient's floor/unit and/or counseling patient: Coding Level of Care Code 42444 SUB INP/OBS CARE 3/50MIN Diagnoses Ventral hernia K43.9 Nonischemic cardiomyopathy I42.8 Primary hyperaldosteronism E26.09 Tobacco use Z72.0
[2024-09-22] MEDS: oxyCODONE HCL IR 5 MG TAB (IMMEDIATE RELEASE) PO PRN (21:19)
[2024-09-23 06:22] LABS: BUN Creatinine Ratio 19.8 (10-20); Calcium 8.8 mg/dl (8.6-10.3); Creatinine Clr Calc Pharmacy 87.5 ml/min; Potassium 4.4 mmol/L (3.5-5.1)
[2024-09-23 06:41] LABS: Basophils # (auto) 0.01 K/uL (0.00-0.20); Basophils % (auto) 0.1 %; Eosinophils # (auto) 0.11 K/uL (0.00-0.50); Eosinophils % (auto) 0.9 %; Hematocrit (blood only) 42.3 % (42.0-52.0); Hemoglobin 14.4 g/dl (14.0-18.0); Immature Granulocytes # (auto) 0.06 K/uL (0.01-0.20); Immature Granulocytes % (auto) 0.5 %; Lymphocytes # (auto) 0.57 K/uL (1.20-3.40); Lymphocytes % (auto) 4.6 %; Mean Corpuscular Hemoglobin 30.9 pg (25.0-34.0); Mean Corpuscular Volume 90.8 fL (80.0-100.0); Monocytes # (auto) 0.36 K/uL (0.11-0.59); Monocytes % (auto) 2.9 %; Platelet Count 188 K/uL (130-400); RDW Coefficient of Variation 13.2 % (11.5-14.5); RDW Standard Deviation 44.7 fL (36.4-46.3); Red Blood Count 4.66 M/uL (4.70-6.10); White Blood Count 12.31 K/ul (4.8-10.8)
[2024-09-23 07:41] VITALS: PULSE 60; RESP 16; TEMP 97.9; O2SAT 95
[2024-09-23 07:43] VITALS: BP 140/77
--- NOTE | 2024-09-23 09:49 | Surgery Progress Note ---
Date of Service September 23, 2024 Assessment & Plan (1) Incarcerated umbilical hernia: Plan: Postoperative day #1 Doing well. Okay for discharge. Instructions given (2) Ventral hernia: Admission and Anticipated Discharge Date Admission Date: September 20, 2024 Subjective Patient seen. Doing well. Pain controlled. Tolerating diet. Would like to go home Physical Exam Physical Exam: Alert no acute distress Abdomen is soft with expected tenderness Results & Data Vital Signs (Past 12 Hours) Vital Signs Temp Pulse Pulse Resp BP Pulse Ox O2 Del Method 09/23/24 07:39 36.6 C 60 16 140/77 95 Room Air 09/23/24 04:00 36.4 C L 61 18 133/63 93 Room Air 09/23/24 00:08 36.5 C 63 16 129/73 93 Room Air PG Care Time/CCT Total # of Minutes Spent Total Time Spent with Patient: Total time spent is greater than 50% in coordination of care (as documented) at patient's floor/unit and/or counseling patient: Coding Level of Care Code 68653 Post Operative Follow-Up Diagnoses Incarcerated umbilical hernia K42.0 Ventral hernia K43.9
--- NOTE | 2024-09-23 15:58 | Discharge Summary ---
Discharge Summary Date of Service September 23, 2024 Principal Dx & Hospital Course #1 = Principal Diagnosis (1) Ventral hernia: Worsening umbilical abdominal pain that began on Tuesday 09/18 has some cellulitis around umbilicus sent to OR, improved A/P CT revealed: No bowel obstruction No bowel involvement and hernia sacs Unchanged appearance of umbilical/suprapubic umbilical hernias with mild associated inflammatory stranding General Surgery consult OR 09/19 resume Eliquis 09/24 (2) Nonischemic cardiomyopathy: stable HFrEF, on entresto chronic hypertension continue hydralazine amlodipine and coreg h/o Cad with stent no signs of unstable angina or HF- hold aspirin with possible surgery (3) Primary hyperaldosteronism: Continue eplerenone (4) Tobacco use: Daily tobacco use; 1 PPD cessation encouraged Plan Full code Notes For Next Care Provider not sent home on antibiotics, surgical preference Admission HPI Per Admitting Provider Lamberto is a 63-year-old male with PMH of chronic ventral hernia, poorly controlled HTN, primary hyperaldosteronism, kidney stones, and nonischemic cardiomyopathy. He presented on 09/20 for a painful "lump" near his umbilicus that he first noticed upon waking on Tuesday 09/18. He was referred to the ER out of concern for strangulated hernia. Patient reports constant pain around the umbilicus over the past 2 days. He rates the pain 6/10 at present. No radiation to the back or to other parts of his abdomen. He has not been taking any pain medicine at home for the pain. He characterizes it as a "burning" pain that he woke up with on Thursday. No recent change in diet. He reports that the pain is better when he is resting. No history of abdominal surgeries. He does have a history of chronic ventral hernia. Patient took his regular morning medicine today; only recent change is that his eplerenone was increased from daily to twice daily. Patient takes Eliquis for history of PAF. He is unsure why he takes aspirin, but reports he does have a history of a heart stent several years back. No PMH of [place], stroke, DM, or CHF. He is a current everyday tobacco cigarette smoker; 1 PPD. He denies any recent alcohol use. He does end orse eating an edible last night to help him sleep. Patient is hypertensive at 173/91, and mildly bradycardic at 51 bpm at time of admission; vitals otherwise stable. ED course: ROS: Patient endorses abdominal pain around the umbilicus, dry cough, and acid reflux last night (resolved). Patient denies fever, chills, night-sweats, dizziness, lightheadedness, chest pain, pleuritic CP, SOB, vomiting, diarrhea, changes in urinary/bowel habits, burning with urination, blood in the urine/stool, saddle anesthesia, numbness/tingling in the legs, or new lower back pain. Discharge Plan Discharge Items Patient Disposition: Home - Self-Care Reason For Visit: UMBILICAL HERNIA Discharge Diagnosis: laparoscopic ventral and umbilical hernia repair Activity: As commented below Lifting: No more than 10 pounds Bathing Comment: you can shower 09/23/24. no soaking in pools/bath for 2 weeks Exercise/Sports: Wait until after follow-up appointment Driving/Machine Use: no driving if taking narcotic pain medication Non-emergency contact: Surgeon Call non-emergency contact if: you have any medication questions, your symptoms worsen, you have a fever, your temperature is above 101, your temperature is above 101.5, your wound has increased redness, your wound has increased drainage and your wound pain has increased Follow-up/Referrals: Darrius Olsen, [Surgeon] - 10/14/24 9:30 am (call office for follow up in 2 weeks ) PCP,NO [Primary Care Provider] - Diet: Regular Addtl Attending Provider Instructions: SPECIAL CARE INSTRUCTIONS: * dressing: You have surgical glue called dermabond on your surgical site incisions. You may shower with this on. This will tend to come off within a couple of weeks. Do not pick at it. * You may ice your abdomen on and off alternating every 20 minutes as needed to help with pain and swelling over the next few days. * No lifting greater than 10lbs. No strenuous exercise until cleared by surgeon. Light walking is accepted. * No driving for 1 week or while taking narcotic pain medication * No drinking alcohol while taking narcotic pain medication * May use Ibuprofen/Tylenol over the counter for pain as tolerated. Do not exceed 3grams of Tylenol per 24 hours * Expect some swelling and bruising. you can resume your Apixaban on Pending Studies at Discharge: No Stand-Alone Forms: My [facility], Work/School Release, Smoking Cessation Medications and DC Order Prescriptions: New oxycodone 5 mg tablet 5 - 10 mg PO .[id number] PRN (Reason: pain, for initial therapy, max 6 tabs per day) Qty: 12 0RF Continued aspirin [Adult Low Dose Aspirin] 81 mg tablet,delayed release (DR/EC) 81 mg PO DAILY eplerenone 50 mg tablet 50 mg PO BID carvedilol 3.125 mg tablet 3.125 mg PO BID Rx Instructions: must administer with a meal/food hydralazine 100 mg tablet 100 mg PO TID Entresto 97-103 mg tablet 1 tab PO BID amlodipine 5 mg tablet 5 mg PO BID Qty: 60 6RF potassium chloride 20 mEq tablet,ER particles/crystals 20 meq PO BID Held Eliquis 5 mg tablet 5 mg PO BID Hold Instructions: Resume on 09/24/24. Discharge Orders: Discharge Order (Routine); Ordered 09/23/24 Ordered By: Jean Claude Quinonez Admission Data Admit Date/Time: 09/20/24 17:12 Attending Provider: Jean Claude Quinonez Admit Provider: Saad Perez Primary Care Provider: PCP,NO Other Providers: Saad Perez; Darrius Olsen; Jude Steward Other Interventions: Discharge Summary Assessment (RN) Last Done: 09/23/24 08:38 Hospital Stay Data Consultations 09/20/24 16:23 ED Decision to Admit Stat 09/20/24 17:14 Consult General Surgery Routine 09/20/24 20:38 Consult Cardiology Routine Procedures Performed Operation Date: 09/22/24 13:35 Actual Procedures p Laparoscopic Umbilical and Ventral Hernia Repairs with Mesh(Not Applicable) - Darrius Olsen DO Diagnostic Imagining Performed 09/20/24 14:02 CT Abd and Pelvis [CT abd pelvis IV con only] Stat Pending Results Patient Have Any Pending Studies at Discharge: No Discharge Instructions Given to Patient (Per Discharging Provider) SPECIAL CARE INSTRUCTIONS: * dressing: You have surgical glue called dermabond on your surgical site incisions. You may shower with this on. This will tend to come off within a couple of weeks. Do not pick at it. * You may ice your abdomen on and off alternating every 20 minutes as needed to help with pain and swelling over the next few days. * No lifting greater than 10lbs. No strenuous exercise until cleared by surgeon. Light walking is accepted. * No driving for 1 week or while taking narcotic pain medication * No drinking alcohol while taking narcotic pain medication * May use Ibuprofen/Tylenol over the counter for pain as tolerated. Do not exceed 3grams of Tylenol per 24 hours * Expect some swelling and bruising. you can resume your Apixaban on Total Time Total Time Spent Total Time Spent (In Minutes): It required greater than 30 minutes to prepare this patient for discharge. Coding Level of Care Code 61508 INP/OBS DISCH >30 MIN Diagnoses Ventral hernia K43.9 Nonischemic cardiomyopathy I42.8 Primary hyperaldosteronism E26.09 Tobacco use Z72.0
== END 2024-09-23 10:32 | disposition home or self-care (01) | DRG 354 ==
LOC: ED 12:03 → SUATTDRO 17:12 → EDINP 17:12 → 3E 09-21 14:00